=== PATIENT | female | born 1970 | race Caucasian/White ===

== ENCOUNTER 2020-08-01 17:24 | Inpatient (IN) | payer OTHER, SELFPAY ==
--- NOTE | ~2020-08-01 | CT_ITS ---
EXAMINATION: CT ABDOMEN AND PELVIS WITHOUT CONTRAST CLINICAL INFORMATION: Right flank pain COMPARISON: None TECHNIQUE: Multidetector volumetric imaging was performed from the superior aspect of the liver through the pubic symphysis. Sagittal and coronal reformatted images were obtained on the technologist's workstation. This CT examination was performed using dose optimization techniques as appropriate, variously including the following: *Automated exposure control *Adjustment of mA and/or kV according to patient size (this includes techniques or standardized protocols for targeted exams where dose is matched to indication/reason for exam; i.e. extremities or head) *Use of iterative reconstruction technique DLP: 1686 mGy-cm FINDINGS: LUNG BASES: The visualized lung bases are unremarkable. A tiny right anterior preparacardiac lymph node is present. LIVER, GALLBLADDER, AND BILIARY TREE: The liver is enlarged at 23 cm and demonstrates a markedly nodular border consistent with cirrhosis. No focal liver masses or bile duct dilatation is seen. The gallbladder is unremarkable with no evidence of radiopaque gallstones, gallbladder wall thickening, or obvious pericholecystic inflammatory changes. PANCREAS: Unremarkable. SPLEEN: Spleen is enlarged measuring 14 cm in greatest length. ADRENAL GLANDS: Unremarkable. KIDNEYS AND URETERS: The kidneys are normal in size, shape, and attenuation. Probable dromedary hump is noted in the left kidney. No hydronephrosis, hydroureter, or calculi seen. No perinephric stranding. There is one tiny calcification seen in the region of the right ureterovesical junction that may very well be a phlebolith as I cannot see the ureter extending to this (4:719). BLADDER: Unremarkable. GASTROINTESTINAL TRACT: The small and large bowel are unremarkable. The appendix is unremarkable. ABDOMINAL WALL: No significant hernia is appreciated. LYMPH NODES: No retroperitoneal lymphadenopathy VASCULAR: Unremarkable. No significant varices are seen. PELVIC VISCERA: An anteverted uterus is present. A small right ovarian cyst is seen. An abnormal adnexal mass or free intraperitoneal fluid is not present. OSSEOUS STRUCTURES: Degenerative changes noted in the lower thoracic spine as well as at L5-S1. CT/CT abdomen pelvis wo con IMPRESSION: 1. Enlarged cirrhotic nodular liver with associated splenomegaly. No ascites or varices are seen. 2. No renal calculi seen and no hydronephrosis present. Questionable punctate density near right ureterovesical junction but I cannot confidently place this within the ureter. 3. Other incidental findings as described above.
[2020-08-01 19:45] VITALS: PULSE 93; RESP 18; TEMP 36.4; O2SAT 94
--- NOTE | 2020-08-01 21:07 | PC.NURSE ---
Patient awake at 2100, Nurse asked patient if she would be willing to do the admission. Patient reported that she was tired and asked if she could do it in the am.
[2020-08-02 06:00] VITALS: BP 102/49; PULSE 91; RESP 18; TEMP 36.7; O2SAT 94
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
--- NOTE | 2020-08-02 15:55 | PC.NURSE ---
Patient refused EKG.
[2020-08-02 19:36] VITALS: BP 155/65; PULSE 105; RESP 18; TEMP 36.7; O2SAT 95
--- NOTE | 2020-08-02 22:49 | PC.NURSE ---
Patient refused scheduled zyprexa.
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
[2020-08-03 06:00] VITALS: BP 125/58; PULSE 101; RESP 18; TEMP 35.6; O2SAT 97
--- NOTE | 2020-08-03 16:10 | PC.NURSE ---
hospitalist consult-refused assessment reported to Guillaume Cesar ''I work for the [employer] I can't tell you anything about my mental or physical health''
--- NOTE | 2020-08-03 16:13 | P.EN_ITS ---
Event Note Date of Service: 08/03/20 Event Note: Routine consultation. Pt admitted directly from [facility] with h/o johann iziaffective disorder Attempted to evaluate patient. She declined to answer any questions and declined physical exam. There are no labs to review Diabetes listed in chart, pt would not confirm. If so would recommend diabetic diet, following POC sugars and SSI if pt will allow.
--- NOTE | 2020-08-03 17:40 | HO.PSYCHPN ---
Subjective Subjective Date of Service: 08/03/20 Reason For Visit: Schizophrenia Subjective Notes: Section 12B Healthcare Proxy: No Guardianship: No Medical Problems Affecting Mental Status: No Interim History: pt refusing meds; refusing to sign any papers. refusing to engage in further evaluation or interviw; refusing labs; pleasant upon superficial approach but easily becomes irritable and guarded if asked questions about her mental health. She reports she doesn't need any medication just MARCELO. She says she is a better healer than MARCELO. She is very religiously preoccupied- asking where the chapel is and stating she can offer high school counselor to others in the hospital. Medication Compliance: No Attending Groups: Intermittent Review of Systems Review of Systems Yes Unobtainable due to mental status (irritable, refusing to extend interview; denies medical complaints currentl) Mental Status Exam Mental Status Exam Patient Appearance: Disheveled Patient Orientation: Person and Place Level of Consciousness: Awake, Restless and Alert Patient Behavior: Guarded, Talkative, Asleep (vascillates between sleeping and hyperactive and talkative (given thorazine IM in ED at [facility])), Restless, Anxious, Distractible and Poor Eye Contact Behavior Comments: scanning room, appearing preoccupied with internal stimuli at times, irritable if aksed questions about mental health Mood Description: Suspicious, Anxious, Labile, Apprehensive and Expansive Affect Description: Suspicious, Cheerful, Anxious and Labile Patient Cognition Impaired: Yes Ability to Follow Directions: Fair Speech Pattern: Delayed, Pressured (intermittently ) and Long Pauses Memory Description: Episodic Impaired Delusions: Paranoid Ideation and Grandiose Thought Process: Evasive Judgement: Poor Diagnostics Vital Signs (24Hr): Vital Signs - 24 hr 08/02/20 19:36 08/03/20 06:00 Temperature 98.1 F 96.0 F L Pulse Rate 105 H 101 H Respiratory Rate 18 18 Blood Pressure 155/65 H 125/58 L Pulse Oximetry 95 97 Medications Medications Current Medications Generic Name Dose Route Start Last Admin Trade Name Freq PRN Reason Stop Dose Admin Acetaminophen 650 mg 08/01/20 15:11 Acetaminophen 325 Mg Tablet PO Q6H PRN Headache/Pain Mild Scale (1-3) Al Hydroxide/Mg Hydroxide 30 ml 08/01/20 15:11 Magnesium Hydrox/Alum Hydrox 30 Ml Oral.Susp PO Q6H PRN Heartburn/Nausea Hydroxyzine HCl 25 mg 08/01/20 15:11 Hydroxyzine Hcl 25 Mg Tablet PO BEDTIME PRN Anxiety Lorazepam 1 mg 08/02/20 09:10 Lorazepam 0.5 Mg Tablet PO Q6H PRN Anxiety Magnesium Hydroxide 30 ml 08/01/20 15:11 Milk Of Magnesia 30 Ml Oral.Susp PO DAILY PRN Constipation Olanzapine 10 mg 08/02/20 21:00 08/02/20 21:16 Olanzapine Odt 10 Mg Tab.Rapdis TRANSLINGU Not Given BEDTIME BRIAN Olanzapine 5 mg 08/02/20 09:09 Olanzapine Odt 10 Mg Tab.Rapdis TRANSLINGU BID PRN Psychosis, agitation Trazodone HCl 50 mg 08/01/20 15:11 Trazodone Hcl 50 Mg Tablet PO BEDTIME PRN Insomnia Allergies Allergies Allergy/AdvReac Type Severity Reaction Status Date / Time oxybutynin Allergy Unknown Hallucinati Unverified 07/30/19 00:00 ons tramadol Allergy Unknown Swelling/Hi Verified 11/07/18 00:00 ves tramadol Allergy Unknown edema, Uncoded 07/30/19 00:00 hives, sob Assessment & Plan Assessment & Plan (1) Schizoaffective disorder, bipolar type: Status: Acute Code(s): F25.0 - Schizoaffective disorder, bipolar type Assessment and Plan: Encourage ZYPREXA 10 MG AT HS ZYPREXA 5 MG bid PRN PSYCHOSIS ATIVAN 1 MG Q 6 HOURS PRN ANXIETY labs: CBC CMP TSH, lipids and A1C hospital consult EKG may need sect 7 and 8 discharge planning with team for f/u care and prevention of relapse Greater than 50% of the session was spent on counseling and/or coordination of care Reason for contiued inpatient stay Substantial Risk for: harm to self, harm to others, inability to function, rapid decompensation and med/psych decompensation
[2020-08-03 18:00] VITALS: BP 151/76; TEMP 37.1; O2SAT 100
[2020-08-04 06:00] VITALS: BP 142/75; PULSE 98; RESP 18; TEMP 36.6; O2SAT 95
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
[2020-08-04 18:00] VITALS: BP 156/69; PULSE 83; TEMP 35.7; O2SAT 98
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
[2020-08-06 06:00] VITALS: BP 143/82; PULSE 86; TEMP 35.8; O2SAT 100
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
[2020-08-06 17:35] VITALS: BP 167/69; PULSE 95; TEMP 36.7; O2SAT 96
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
[2020-08-07 17:23] VITALS: BP 115/55; PULSE 100; RESP 18; TEMP 36.6; O2SAT 96
--- NOTE | 2020-08-08 03:25 | PC.NURSE ---
Awake at 23:45. Presented as hyperverbal and responding to internal stimuli. Pt lecturing another patient about reconciling people. While pacing the hallway, pt appeared to be unaware of the environment when asked to lower her voice: you mean there are other people here? Pt fearful of not having enough food in the hospital: I need the number to [employer]. We need to make sure there's enough food here. Pt asked to speak with another patient in the kitchen area. I can't do that. I can't leave the time-line (the hallway). Pt responding to internal stimuli as evidenced by the pt self-dialoguing incoherently. Pt refused medication. Continued to pace the hallway and in bed by 00:45 for remainder of shift.
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
[2020-08-08 10:15] VITALS: BP 108/54; PULSE 90; TEMP 36.7; O2SAT 100
[2020-08-08 16:35] VITALS: BP 130/58; PULSE 87; TEMP 36.5
[2020-08-09 06:00] VITALS: BP 108/53; PULSE 85; RESP 18; TEMP 35.7; O2SAT 94
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
[2020-08-09 19:10] VITALS: BP 137/61; PULSE 87; TEMP 36.1
[2020-08-10 05:25] VITALS: BP 131/64; PULSE 84; RESP 18; TEMP 36.4; O2SAT 96
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
[2020-08-10] MEDS: LORazepam 2 MG/ML VIAL IM (08:45)
[2020-08-10] MEDS: diphenhydrAMINE HCL 50 MG/ML VIAL IM (08:45)
[2020-08-10] MEDS: OLANZapine 10 MG VIAL IM (08:45)
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
[2020-08-11 17:04] VITALS: BP 114/67; PULSE 96; RESP 18; TEMP 36.8; O2SAT 100
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
[2020-08-12 16:57] VITALS: BP 109/57; PULSE 75; RESP 18; TEMP 36.8; O2SAT 96
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
[2020-08-14 06:20] VITALS: BP 139/66; PULSE 81; RESP 18; TEMP 36.6; O2SAT 96
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
[2020-08-14 19:10] VITALS: BP 150/76; PULSE 86; TEMP 36.6
[2020-08-15 06:35] VITALS: BP 124/62; PULSE 91; RESP 18; TEMP 36; O2SAT 94
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
[2020-08-15] MEDS: Paliperidone Palmitate 234 MG/1.5 ML SYRINGE IM (15:06)
[2020-08-15 17:15] VITALS: BP 123/71; PULSE 87; RESP 18; TEMP 36.6; O2SAT 97
[2020-08-15] MEDS: OLANZapine ODT 10 MG TAB.RAPDIS TRANSLINGU (21:15)
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
[2020-08-16] MEDS: OLANZapine ODT 10 MG TAB.RAPDIS TRANSLINGU (21:45)
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
[2020-08-17] MEDS: OLANZapine ODT 10 MG TAB.RAPDIS TRANSLINGU (20:25)
[2020-08-18 06:00] VITALS: BP 97/55; PULSE 87; RESP 18; TEMP 36.8; O2SAT 95
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
[2020-08-18 16:46] VITALS: BP 129/64; PULSE 87; RESP 18; TEMP 36.5; O2SAT 97
[2020-08-18] MEDS: OLANZapine 10 MG VIAL IM (22:49)
[2020-08-19 11:00] VITALS: BP 146/65; PULSE 97; RESP 16; TEMP 36.1; O2SAT 97
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
[2020-08-19 18:45] VITALS: BP 133/63; PULSE 92; TEMP 36.6
[2020-08-19] MEDS: OLANZapine 10 MG VIAL IM (22:53)
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
[2020-08-20] MEDS: Paliperidone Palmitate 234 MG/1.5 ML SYRINGE IM (14:14)
[2020-08-20 18:00] VITALS: RESP 18
[2020-08-20] MEDS: OLANZapine ODT 10 MG TAB.RAPDIS TRANSLINGU (20:53)
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
[2020-08-21 18:00] VITALS: BP 141/68; PULSE 95; RESP 18; TEMP 36.3
[2020-08-21] MEDS: OLANZapine ODT 10 MG TAB.RAPDIS TRANSLINGU (21:27)
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
[2020-08-22] MEDS: OLANZapine ODT 10 MG TAB.RAPDIS TRANSLINGU (20:32)
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
[2020-08-23 18:00] VITALS: BP 119/56; PULSE 93; TEMP 36.4
[2020-08-23] MEDS: OLANZapine ODT 10 MG TAB.RAPDIS TRANSLINGU (21:01)
[2020-08-24 16:30] VITALS: BP 121/57; PULSE 80; TEMP 36.4
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
[2020-08-24] MEDS: OLANZapine ODT 10 MG TAB.RAPDIS TRANSLINGU (20:32)
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
[2020-08-25 18:00] VITALS: BP 140/77; PULSE 82; TEMP 37
[2020-08-25] MEDS: OLANZapine 7.5 MG TABLET PO (20:23)
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
[2020-08-26 17:34] VITALS: BP 122/66; PULSE 82; RESP 18; TEMP 36.8; O2SAT 96
[2020-08-26] MEDS: OLANZapine 7.5 MG TABLET PO (20:20)
[2020-08-27 15:14] VITALS: BP 124/57; PULSE 97; TEMP 36.7
[2020-08-27 16:35] VITALS: BP 148/72; PULSE 90; TEMP 36.7
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
[2020-08-27] MEDS: OLANZapine 7.5 MG TABLET PO (22:28)
[2020-08-28 06:25] VITALS: BP 108/53; PULSE 79; RESP 16; TEMP 36.4; O2SAT 96
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
[2020-08-28 18:00] VITALS: RESP 16
[2020-08-28] MEDS: OLANZapine 7.5 MG TABLET PO (20:39)
[2020-08-29 06:00] VITALS: RESP 20
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
[2020-08-29 17:57] VITALS: BP 144/75; PULSE 85; TEMP 36.6
[2020-08-29] MEDS: OLANZapine 7.5 MG TABLET PO (20:02)
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
[2020-08-30 18:00] VITALS: BP 138/84; PULSE 82; RESP 16; TEMP 36.2; O2SAT 96
[2020-08-30] MEDS: OLANZapine 7.5 MG TABLET PO (21:49)
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
[2020-08-31 18:00] VITALS: BP 138/78; PULSE 78; RESP 18; TEMP 36.6; O2SAT 97
[2020-08-31 21:00] VITALS: BP 140/72; PULSE 76
[2020-08-31] MEDS: OLANZapine 7.5 MG TABLET PO (21:22)
[2020-08-31] MEDS: diphenhydrAMINE HCL 25 MG TABLET 50 MG PO (23:45)
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
[2020-09-01] MEDS: Benztropine Mesylate 1 MG TABLET PO (17:03)
[2020-09-01 18:00] VITALS: BP 167/78; PULSE 84; TEMP 36.4
[2020-09-01] MEDS: OLANZapine 7.5 MG TABLET PO (21:53)
[2020-09-02 06:00] VITALS: BP 155/79; PULSE 89; RESP 17; TEMP 36.1; O2SAT 98
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
[2020-09-02 18:00] VITALS: BP 175/83; PULSE 82; TEMP 36.4
[2020-09-02] MEDS: Benztropine Mesylate 1 MG TABLET PO (20:43)
[2020-09-02] MEDS: OLANZapine 7.5 MG TABLET PO (20:43)
[2020-09-03 16:54] VITALS: BP 126/80; PULSE 80; RESP 18; TEMP 36.2; O2SAT 96
[2020-09-03] MEDS: OLANZapine 7.5 MG TABLET PO (21:49)
[2020-09-03] MEDS: Benztropine Mesylate 1 MG TABLET PO (21:49)
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
[2020-09-04 18:00] VITALS: BP 132/63; PULSE 82; RESP 18; TEMP 36.3; O2SAT 96
[2020-09-04] MEDS: OLANZapine 7.5 MG TABLET PO (20:36)
[2020-09-04] MEDS: Benztropine Mesylate 1 MG TABLET PO (20:38)
[2020-09-04] MEDS: Benztropine Mesylate 0.5 MG TABLET PO (23:35)
[2020-09-05 16:20] VITALS: BP 164/81; PULSE 81; TEMP 36.5
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
[2020-09-05] MEDS: OLANZapine 7.5 MG TABLET PO (20:59)
[2020-09-05] MEDS: Benztropine Mesylate 1 MG TABLET PO (20:59)
[2020-09-06 06:00] VITALS: BP 105/52; PULSE 74; RESP 14; TEMP 36.3; O2SAT 94
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
[2020-09-06] MEDS: Benztropine Mesylate 1 MG TABLET PO (20:28)
[2020-09-06] MEDS: OLANZapine 7.5 MG TABLET PO (20:28)
[2020-09-06] MEDS: Benztropine Mesylate 0.5 MG TABLET PO (22:12)
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
[2020-09-07 09:57] VITALS: BP 136/82; PULSE 87; RESP 14; TEMP 36.4; O2SAT 97
[2020-09-07] MEDS: Benztropine Mesylate 0.5 MG TABLET PO (19:41)
[2020-09-07] MEDS: Benztropine Mesylate 1 MG TABLET PO (19:41)
[2020-09-07] MEDS: OLANZapine 7.5 MG TABLET PO (19:41)
[2020-09-07] MEDS: Acetaminophen 325 MG TABLET 650 MG PO (21:23)
[2020-09-07] MEDS: traZODone HCL 50 MG TABLET PO ×2 (22:29→23:30)
[2020-09-07] MEDS: diphenhydrAMINE HCL 25 MG TABLET 50 MG PO (22:29)
[2020-09-08 06:25] VITALS: BP 120/65; PULSE 68; RESP 18; TEMP 36.2; O2SAT 93
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
[2020-09-08 18:00] VITALS: BP 142/82; PULSE 73
[2020-09-08] MEDS: OLANZapine 7.5 MG TABLET PO (20:24)
[2020-09-08] MEDS: Benztropine Mesylate 1 MG TABLET PO (20:24)
[2020-09-09] MEDS: Benztropine Mesylate 1 MG TABLET PO ×2 (08:03→20:27)
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
[2020-09-09 18:00] VITALS: BP 119/57; PULSE 88; RESP 18; TEMP 36.7; O2SAT 96
[2020-09-09] MEDS: OLANZapine 7.5 MG TABLET PO (20:27)
[2020-09-09] MEDS: Benztropine Mesylate 0.5 MG TABLET PO (22:45)
[2020-09-09] MEDS: traZODone HCL 50 MG TABLET PO ×2 (22:45→23:53)
[2020-09-09] MEDS: Acetaminophen 325 MG TABLET 650 MG PO (23:53)
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
[2020-09-10 18:00] VITALS: BP 95/53; PULSE 76; RESP 18; TEMP 36.4; O2SAT 95
[2020-09-10] MEDS: OLANZapine 7.5 MG TABLET PO (20:31)
[2020-09-10] MEDS: Benztropine Mesylate 1 MG TABLET PO (20:31)
[2020-09-10 20:48] VITALS: BP 133/91; PULSE 83; RESP 22; TEMP 36.1; O2SAT 97
[2020-09-11] MEDS: traZODone HCL 50 MG TABLET PO ×4 (00:19→23:18)
[2020-09-11] MEDS: Benztropine Mesylate 0.5 MG TABLET PO ×2 (01:05→22:11)
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
[2020-09-11] MEDS: Benztropine Mesylate 1 MG TABLET PO (20:46)
[2020-09-11] MEDS: OLANZapine 7.5 MG TABLET PO (20:46)
[2020-09-11] MEDS: amantadine HCL 100 MG CAPSULE PO (22:40)
[2020-09-11] MEDS: Acetaminophen 325 MG TABLET 650 MG PO (23:18)
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
[2020-09-12 16:52] VITALS: BP 111/78; PULSE 82; RESP 18; TEMP 36.4; O2SAT 97
[2020-09-12] MEDS: Benztropine Mesylate 1 MG TABLET PO (20:40)
[2020-09-12] MEDS: OLANZapine 7.5 MG TABLET PO (20:41)
[2020-09-13 12:57] VITALS: BP 133/67; PULSE 91; RESP 16; TEMP 36.2; O2SAT 97
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
[2020-09-13 18:00] VITALS: BP 146/82; PULSE 89; RESP 16; TEMP 37.3; O2SAT 98
[2020-09-13] MEDS: Benztropine Mesylate 1 MG TABLET PO (21:06)
[2020-09-13] MEDS: OLANZapine 7.5 MG TABLET PO (21:06)
[2020-09-13] MEDS: amantadine HCL 100 MG CAPSULE PO (21:09)
[2020-09-13] MEDS: Ibuprofen 600 MG TABLET PO (23:32)
[2020-09-14] MEDS: traZODone HCL 50 MG TABLET PO ×3 (00:35→22:04)
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
[2020-09-14 17:01] VITALS: BP 128/68; PULSE 79; TEMP 36.5; O2SAT 96
[2020-09-14] MEDS: OLANZapine 7.5 MG TABLET PO (20:09)
[2020-09-14] MEDS: amantadine HCL 100 MG CAPSULE PO (20:09)
[2020-09-14] MEDS: Benztropine Mesylate 1 MG TABLET PO (21:26)
[2020-09-14] MEDS: Benztropine Mesylate 0.5 MG TABLET PO (22:05)
[2020-09-14] MEDS: Ibuprofen 600 MG TABLET PO (22:48)
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
[2020-09-15 16:35] VITALS: BP 144/84; PULSE 85; RESP 18; TEMP 36.7; O2SAT 94
[2020-09-15] MEDS: Benztropine Mesylate 1 MG TABLET PO (20:53)
[2020-09-15] MEDS: OLANZapine 7.5 MG TABLET PO (20:55)
[2020-09-15] MEDS: Ibuprofen 600 MG TABLET PO (22:24)
[2020-09-15] MEDS: traZODone HCL 50 MG TABLET PO ×2 (22:53→23:53)
[2020-09-15] MEDS: Benztropine Mesylate 0.5 MG TABLET PO (22:53)
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
[2020-09-16 18:00] VITALS: RESP 16
[2020-09-16] MEDS: Ibuprofen 600 MG TABLET PO (19:49)
[2020-09-16] MEDS: OLANZapine 7.5 MG TABLET PO (19:50)
[2020-09-16] MEDS: traZODone HCL 50 MG TABLET PO (19:50)
[2020-09-16] MEDS: Benztropine Mesylate 1 MG TABLET PO (19:50)
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
[2020-09-17 16:11] VITALS: BP 146/68; PULSE 89; RESP 20; TEMP 36.8
[2020-09-17] MEDS: OLANZapine 7.5 MG TABLET PO (20:11)
[2020-09-17] MEDS: amantadine HCL 100 MG CAPSULE PO (20:11)
[2020-09-17] MEDS: Benztropine Mesylate 1 MG TABLET PO (20:11)
[2020-09-17] MEDS: traZODone HCL 50 MG TABLET PO ×2 (20:11→21:45)
[2020-09-17] MEDS: Benztropine Mesylate 0.5 MG TABLET PO (21:45)
[2020-09-17] MEDS: Ibuprofen 600 MG TABLET PO (22:20)
--- NOTE | 2020-09-18 14:54 | PC.NURSE ---
Pt idnified several items she stated were missing that included rosary beads. she then stated she gave these away.
[2020-09-18 16:24] VITALS: BP 120/62; PULSE 86; RESP 18; TEMP 36.1; O2SAT 97
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
[2020-09-18] MEDS: Benztropine Mesylate 1 MG TABLET PO (20:27)
[2020-09-18] MEDS: OLANZapine 7.5 MG TABLET PO (20:27)
[2020-09-18] MEDS: traZODone HCL 50 MG TABLET PO (21:11)
[2020-09-19 06:00] VITALS: BP 143/79; PULSE 97; RESP 20; TEMP 36.2; O2SAT 98
[2020-09-19] MEDS: Benztropine Mesylate 0.5 MG TABLET PO ×2 (06:34→20:42)
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
[2020-09-19 15:55] VITALS: BP 137/86; PULSE 78; TEMP 36.8
[2020-09-19] MEDS: Benztropine Mesylate 1 MG TABLET PO (20:37)
[2020-09-19] MEDS: OLANZapine 7.5 MG TABLET PO (20:37)
[2020-09-19] MEDS: traZODone HCL 50 MG TABLET PO ×2 (21:29→22:44)
[2020-09-19] MEDS: Ibuprofen 600 MG TABLET PO (22:11)
[2020-09-19] MEDS: amantadine HCL 100 MG CAPSULE PO (22:43)
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
[2020-09-20] MEDS: Paliperidone Palmitate 234 MG/1.5 ML SYRINGE IM (12:07)
[2020-09-20 18:08] VITALS: BP 159/80; PULSE 106; TEMP 36.4
[2020-09-20] MEDS: Ibuprofen 600 MG TABLET PO (18:09)
[2020-09-20] MEDS: Benztropine Mesylate 0.5 MG TABLET PO (20:14)
[2020-09-20] MEDS: OLANZapine 7.5 MG TABLET PO (20:14)
[2020-09-20] MEDS: Benztropine Mesylate 1 MG TABLET PO (20:14)
[2020-09-20] MEDS: traZODone HCL 50 MG TABLET PO (20:30)
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
[2020-09-21] MEDS: Benztropine Mesylate 1 MG TABLET PO (20:35)
[2020-09-21] MEDS: OLANZapine 7.5 MG TABLET PO (20:35)
[2020-09-21] MEDS: traZODone HCL 50 MG TABLET PO ×2 (20:37→21:46)
[2020-09-21] MEDS: Ibuprofen 600 MG TABLET PO (20:37)
[2020-09-21] MEDS: Benztropine Mesylate 0.5 MG TABLET PO (20:37)
[2020-09-21] MEDS: amantadine HCL 100 MG CAPSULE PO (22:02)
--- NOTE | 2020-09-22 13:32 | MHC.CLN ---
Addendum entered by Leeann Hitchcock, STEFFEN 09/22/20 13:35: DIET ALREADY SHOWS VEGETARIAN. Original Note: NUTRITION CONSULT SPOKE WITH PATIENT ABOUT kOSHER FOODS. STATED TAHT SHE FOLLOWS [facility] AND DOES NOT EAQT MEAT OR FISH. SHE WILL EAT CHEESE AND PREFERES HAD OILED EGGS. WOULD LIKE PAPER MENU. KITCHEN AWARE OF PREFERENCE. WILL CHANGE DIET TO VEGETARIAN.
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
[2020-09-22 18:43] VITALS: BP 166/80; PULSE 75; TEMP 36.8
[2020-09-22] MEDS: OLANZapine 7.5 MG TABLET PO (19:32)
[2020-09-22] MEDS: Ibuprofen 600 MG TABLET PO (19:32)
[2020-09-22] MEDS: traZODone HCL 50 MG TABLET PO (19:33)
[2020-09-22] MEDS: amantadine HCL 100 MG CAPSULE PO (19:33)
[2020-09-22] MEDS: Benztropine Mesylate 1 MG TABLET PO (19:33)
[2020-09-22 20:46] VITALS: BP 116/56; PULSE 83
--- NOTE | 2020-09-23 | ECG_ITS ---
Test Reason : CP Blood Pressure : / mmHG Vent. Rate : 073 BPM Atrial Rate : 073 BPM P-R Int : 136 ms QRS Dur : 090 ms QT Int : 374 ms P-R-T Axes : 058 060 029 degrees QTc Int : 412 ms Normal sinus rhythm Normal ECG No previous ECGs available Referred By: Azul Nolan Electronically Signed By:Julien Flores
[2020-09-23] MEDS: Benztropine Mesylate 0.5 MG TABLET PO ×2 (05:32→21:17)
[2020-09-23 06:00] VITALS: BP 136/88; RESP 18; TEMP 36.3; O2SAT 96
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
[2020-09-23 15:23] LABS: MANUAL DIFF FLAG NO
[2020-09-23 15:27] LABS: Basophils Percent Auto 0.4 % (0-2); Eosinophils Absolute Auto 0.2 X10*3/uL (0.0-0.4); Eosinophils Percent Auto 3.1 % (0-4); Hematocrit 42.3 % (37-47); Hemoglobin 13.8 g/dl (12.0-16.0); Imm Gran Abs Auto 0.01 X10*3/uL (0.00-0.03); Imm Gran Pct Auto 0.2 % (0.0-0.4); Lymphocytes Absolute Auto 1.4 X10*3/uL (1.2-4.9); Lymphocytes Percent Auto 26.9 % (20-40); Mean Corpuscular HGB Conc 32.6 g/dl (31.0-35.0); Mean Corpuscular Hemoglobin 31.4 pg (27.0-33.0); Mean Corpuscular Volume 96.4 fL (80-98); Mean Platelet Volume 10.1 fL (9.4-12.3); Monocytes Absolute Auto 0.6 X10*3/uL (0.1-1.2); Monocytes Percent Auto 10.9 % (2-11); Neutrophils Absolute Auto 3.1 X10*3/uL (2.0-8.3); Neutrophils Percent Auto 58.5 % (45-73); Platelet Count 150 X10*3/uL (160-400); Red Blood Count 4.39 X10*6/uL (4.20-5.50); Red Cell Distribution Width 12.1 % (11.0-16.0); White Blood Count 5.2 X10*3/uL (4.8-10.8)
[2020-09-23 15:40] LABS: Estimated Average Glucose 108 mg/dL; Hemoglobin A1c % 5.4 %
[2020-09-23 15:57] LABS: Cholesterol 183 mg/dL; HDL Cholesterol 53 mg/dL; LDL Cholesterol Calculated 104 mg/dl; Triglycerides 134 mg/dL
[2020-09-23 15:58] LABS: Alanine Aminotransferase 19 U/L (0-31); Albumin Level 3.6 g/dL (3.5-5.0); Alkaline Phosphatase 78 U/L (39-117); Anion Gap 13 (12-20); Aspartate Amino Transferase 22 U/L (5-31); Bilirubin Total 1.1 mg/dL (0.0-1.0); Blood Urea Nitrogen 13 mg/dL (9-16); Calcium 9.2 mg/dL (8.4-10.2); Carbon Dioxide 26 mmol/L (22-29); Chloride 106 mmol/L (96-108); Estimated Glomerular Filt Rate > 60; Glucose Random 86 mg/dL (60-115); Potassium 4.6 mmol/L (3.3-5.1); Sodium 140 mmol/L (135-145); Total Protein 7.4 g/dL (6.5-8.0)
[2020-09-23 18:00] VITALS: BP 123/73; PULSE 74; RESP 18; TEMP 36.3; O2SAT 95
[2020-09-23] MEDS: Benztropine Mesylate 1 MG TABLET PO (20:08)
[2020-09-23] MEDS: OLANZapine 7.5 MG TABLET PO (20:08)
[2020-09-23] MEDS: traZODone HCL 50 MG TABLET PO ×2 (20:21→21:18)
[2020-09-23] MEDS: amantadine HCL 100 MG CAPSULE PO (20:26)
[2020-09-23] MEDS: Ibuprofen 600 MG TABLET PO (21:18)
[2020-09-23] MEDS: diphenhydrAMINE HCL 25 MG TABLET 50 MG PO (22:53)
[2020-09-24] MEDS: traZODone HCL 50 MG TABLET PO ×3 (00:58→21:27)
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
[2020-09-24 13:41] VITALS: BP 144/77; PULSE 89; TEMP 36.4
[2020-09-24] MEDS: OLANZapine 7.5 MG TABLET PO (20:30)
[2020-09-24] MEDS: Benztropine Mesylate 1 MG TABLET PO (20:30)
[2020-09-24 21:04] VITALS: BP 153/78; PULSE 86; RESP 16; TEMP 36.4; O2SAT 95
[2020-09-24] MEDS: Benztropine Mesylate 0.5 MG TABLET PO (21:27)
[2020-09-24] MEDS: Ibuprofen 600 MG TABLET PO (22:00)
[2020-09-25 17:00] VITALS: BP 126/61; PULSE 75; TEMP 37.1
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
[2020-09-25] MEDS: Benztropine Mesylate 1 MG TABLET PO (20:24)
[2020-09-25] MEDS: traZODone HCL 50 MG TABLET PO ×2 (20:24→22:26)
[2020-09-25] MEDS: OLANZapine 7.5 MG TABLET PO (20:25)
[2020-09-25] MEDS: Ibuprofen 600 MG TABLET PO (22:25)
[2020-09-25] MEDS: Benztropine Mesylate 0.5 MG TABLET PO (22:26)
[2020-09-25] MEDS: diphenhydrAMINE HCL 25 MG TABLET 50 MG PO (23:34)
[2020-09-26 06:00] VITALS: BP 93/50; PULSE 75; RESP 18; TEMP 35.3; O2SAT 96
[2020-09-26 16:55] VITALS: BP 150/82; PULSE 74; RESP 18; TEMP 36.8; O2SAT 98
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
[2020-09-26] MEDS: Hydrocortisone 1 % Cream 28.35 GM TUBE 1 APPL TOPICAL (21:02)
[2020-09-26 22:42] LABS: CK-BB None Detected (None Detected); CK-MB 0 % (<5); CK-MM 90 % (95-100); Creatine Kinase Isoenzyme Itrp MACRO CK TYPE 1; Creatine Kinase,Total,Serum 89 U/L (29-143)
[2020-09-27] MEDS: OLANZapine 7.5 MG TABLET PO (09:41)
[2020-09-27] MEDS: Benztropine Mesylate 0.5 MG TABLET PO (09:41)
[2020-09-27] MEDS: Hydrocortisone 1 % Cream 28.35 GM TUBE 1 APPL TOPICAL (09:42)
[2020-09-27 17:17] VITALS: BP 145/87; PULSE 88; RESP 18; TEMP 36.2; O2SAT 98
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
[2020-09-28] MEDS: OLANZapine 7.5 MG TABLET PO (09:17)
[2020-09-28] MEDS: Hydrocortisone 1 % Cream 28.35 GM TUBE 1 APPL TOPICAL (09:17)
[2020-09-28] MEDS: Benztropine Mesylate 0.5 MG TABLET PO (09:17)
[2020-09-28 12:14] VITALS: BP 160/90; PULSE 81; RESP 18; TEMP 36.2; O2SAT 96
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
[2020-09-28 18:00] VITALS: BP 140/81; PULSE 83; TEMP 36.9; O2SAT 96
[2020-09-28] MEDS: traZODone HCL 50 MG TABLET PO (22:00)
[2020-09-28] MEDS: Benztropine Mesylate 1 MG TABLET PO (22:00)
[2020-09-29] MEDS: Hydrocortisone 1 % Cream 28.35 GM TUBE 1 APPL TOPICAL (09:51)
[2020-09-29] MEDS: OLANZapine 7.5 MG TABLET PO (09:52)
[2020-09-29] MEDS: Benztropine Mesylate 0.5 MG TABLET PO ×2 (12:04→15:43)
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
[2020-09-29 18:00] VITALS: BP 155/98; PULSE 98; TEMP 36.4
[2020-09-29] MEDS: traZODone HCL 50 MG TABLET PO ×2 (19:35→21:26)
[2020-09-29] MEDS: Ibuprofen 600 MG TABLET PO (19:35)
[2020-09-29] MEDS: Benztropine Mesylate 1 MG TABLET PO (21:26)
[2020-09-29] MEDS: diphenhydrAMINE HCL 25 MG TABLET 50 MG PO (23:26)
[2020-09-30] MEDS: Benztropine Mesylate 0.5 MG TABLET PO ×2 (00:57→09:54)
[2020-09-30] MEDS: OLANZapine 7.5 MG TABLET PO (09:54)
[2020-09-30] MEDS: Hydrocortisone 1 % Cream 28.35 GM TUBE 1 APPL TOPICAL (09:54)
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
[2020-09-30 20:45] VITALS: BP 124/68; PULSE 84; TEMP 36.8
[2020-10-01 04:40] VITALS: BP 137/73; PULSE 97; TEMP 35.7
[2020-10-01] MEDS: OLANZapine 7.5 MG TABLET PO (09:24)
[2020-10-01] MEDS: Benztropine Mesylate 0.5 MG TABLET PO ×2 (09:24→23:00)
[2020-10-01] MEDS: Ibuprofen 600 MG TABLET PO (16:41)
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
[2020-10-01] MEDS: Benztropine Mesylate 1 MG TABLET PO (21:34)
[2020-10-01] MEDS: traZODone HCL 50 MG TABLET PO ×2 (21:34→23:00)
[2020-10-01] MEDS: diphenhydrAMINE HCL 25 MG TABLET 50 MG PO (22:52)
[2020-10-02 06:00] VITALS: BP 103/61; PULSE 72; TEMP 36.1; O2SAT 95
[2020-10-02] MEDS: OLANZapine 7.5 MG TABLET PO (09:57)
[2020-10-02] MEDS: Benztropine Mesylate 0.5 MG TABLET PO ×2 (09:57→14:46)
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
[2020-10-02 16:30] VITALS: BP 151/94; PULSE 102; RESP 18; TEMP 36.5; O2SAT 93
[2020-10-03] MEDS: OLANZapine 5 MG TABLET PO (08:33)
[2020-10-03 16:05] VITALS: BP 126/65; PULSE 83; TEMP 36.2
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
[2020-10-03] MEDS: Ibuprofen 600 MG TABLET PO (22:34)
[2020-10-04 06:00] VITALS: BP 140/88; PULSE 80; TEMP 36.4; O2SAT 99
[2020-10-04] MEDS: OLANZapine 5 MG TABLET PO (08:38)
[2020-10-04] MEDS: Benztropine Mesylate 1 MG TABLET PO (13:04)
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
[2020-10-04 16:38] VITALS: BP 127/66; PULSE 76; TEMP 36.5
[2020-10-05] MEDS: OLANZapine 5 MG TABLET PO (11:34)
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
[2020-10-05 18:00] VITALS: BP 137/76; PULSE 85; TEMP 36.6
[2020-10-06 06:00] VITALS: BP 132/60; PULSE 80; RESP 18; TEMP 36; O2SAT 97
[2020-10-06] MEDS: OLANZapine 5 MG TABLET PO (09:39)
[2020-10-06 16:16] VITALS: BP 137/86; PULSE 86; TEMP 36.6
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
[2020-10-06] MEDS: Benztropine Mesylate 0.5 MG TABLET PO ×2 (19:32→23:10)
[2020-10-06] MEDS: traZODone HCL 50 MG TABLET PO (22:46)
[2020-10-06] MEDS: Ibuprofen 600 MG TABLET PO (22:46)
[2020-10-07] MEDS: OLANZapine 5 MG TABLET PO (09:12)
[2020-10-07] MEDS: Benztropine Mesylate 1 MG TABLET PO (09:12)
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
[2020-10-07 17:26] VITALS: BP 142/86; PULSE 85; TEMP 36.6
[2020-10-07] MEDS: Ibuprofen 600 MG TABLET PO (21:09)
[2020-10-07] MEDS: Benztropine Mesylate 0.5 MG TABLET PO ×2 (21:09→22:30)
[2020-10-07] MEDS: traZODone HCL 50 MG TABLET PO ×2 (21:09→22:12)
[2020-10-08] MEDS: Benztropine Mesylate 1 MG TABLET PO (09:55)
[2020-10-08] MEDS: Hydrocortisone 1 % Cream 28.35 GM TUBE 1 APPL TOPICAL (09:55)
[2020-10-08] MEDS: OLANZapine 5 MG TABLET PO (09:55)
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
[2020-10-08] MEDS: Cyclobenzaprine HCl 5 MG TABLET PO (20:40)
[2020-10-08] MEDS: traZODone HCL 50 MG TABLET PO (22:38)
[2020-10-09] MEDS: OLANZapine 5 MG TABLET PO (09:14)
[2020-10-09] MEDS: Cyclobenzaprine HCl 5 MG TABLET PO ×3 (11:34→22:08)
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
[2020-10-09 18:00] VITALS: BP 140/76; PULSE 84; TEMP 36.4
[2020-10-10] MEDS: Cyclobenzaprine HCl 5 MG TABLET PO ×3 (03:35→23:21)
[2020-10-10 06:00] VITALS: BP 138/87; PULSE 73; RESP 16; TEMP 36.3; O2SAT 96
[2020-10-10] MEDS: OLANZapine 5 MG TABLET PO (09:05)
[2020-10-10] MEDS: Hydrocortisone 1 % Cream 28.35 GM TUBE 1 APPL TOPICAL (09:06)
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
[2020-10-10 18:00] VITALS: BP 142/82; PULSE 86; TEMP 36.7
[2020-10-11] MEDS: Cyclobenzaprine HCl 5 MG TABLET PO (02:15)
[2020-10-11 06:00] VITALS: BP 130/73; PULSE 93; RESP 18; TEMP 36.1; O2SAT 93
[2020-10-11] MEDS: OLANZapine 5 MG TABLET PO (10:10)
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
[2020-10-11 18:00] VITALS: BP 96/55; PULSE 87; TEMP 36.5
[2020-10-12 06:00] VITALS: BP 121/84; PULSE 97; RESP 16; TEMP 36.4; O2SAT 96
[2020-10-12] MEDS: OLANZapine 5 MG TABLET PO (11:10)
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
[2020-10-12 18:00] VITALS: BP 142/73; PULSE 86; TEMP 36.4
[2020-10-12] MEDS: Cyclobenzaprine HCl 5 MG TABLET PO (21:15)
[2020-10-12] MEDS: Ibuprofen 600 MG TABLET PO (22:31)
[2020-10-12] MEDS: traZODone HCL 50 MG TABLET PO (22:31)
[2020-10-13] MEDS: Cyclobenzaprine HCl 5 MG TABLET PO (04:56)
[2020-10-13 05:51] VITALS: BP 152/83; PULSE 71; RESP 18; TEMP 35.8; O2SAT 97
[2020-10-13] MEDS: OLANZapine 5 MG TABLET PO (09:06)
[2020-10-13 19:05] VITALS: BP 122/63; PULSE 86; TEMP 36.6
[2020-10-13] MEDS: Cyclobenzaprine HCl 5 MG TABLET 7.5 MG PO (19:13)
[2020-10-13] MEDS: Ibuprofen 600 MG TABLET PO (19:14)
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
[2020-10-14] MEDS: OLANZapine 5 MG TABLET PO (08:56)
[2020-10-14 10:26] VITALS: BP 136/86; PULSE 92; RESP 16; TEMP 36.6; O2SAT 91
[2020-10-14 16:10] VITALS: BP 149/92; PULSE 91; TEMP 36.8
[2020-10-14] MEDS: Ibuprofen 600 MG TABLET PO (20:51)
[2020-10-14] MEDS: Cyclobenzaprine HCl 5 MG TABLET 7.5 MG PO (20:52)
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
[2020-10-15 05:47] VITALS: BP 143/92; PULSE 88; RESP 18; TEMP 36.1; O2SAT 99
[2020-10-15 06:00] VITALS: BP 143/92; PULSE 88; RESP 16; TEMP 36.1; O2SAT 99
[2020-10-15] MEDS: OLANZapine 5 MG TABLET PO (08:49)
[2020-10-15 18:00] VITALS: BP 133/73; PULSE 79; TEMP 37.2
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
[2020-10-15 18:59] LABS: Alanine Aminotransferase 19 U/L (0-31); Albumin Level 3.6 g/dL (3.5-5.0); Alkaline Phosphatase 74 U/L (39-117); Anion Gap 11 (12-20); Aspartate Amino Transferase 21 U/L (5-31); Bilirubin Total 1.1 mg/dL (0.0-1.0); Blood Urea Nitrogen 13 mg/dL (9-16); Calcium 8.9 mg/dL (8.4-10.2); Carbon Dioxide 28 mmol/L (22-29); Chloride 106 mmol/L (96-108); Estimated Glomerular Filt Rate > 60; Glucose Random 135 mg/dL (60-115); Potassium 4.6 mmol/L (3.3-5.1); Sodium 140 mmol/L (135-145); Total Protein 7.2 g/dL (6.5-8.0)
--- NOTE | 2020-10-15 20:48 | PC.NURSE ---
Pt c/o kidney pain . Pt denies Frequency, burning. Pt vss. Dr. Gill was notified after a hospital consult was ordered. and Dr Gill said he he would not be able to see her tonight. He stated if anything emergent that we should call the night doctor. Pt has been sleeping. when this RN went in to check on pt at 1930, she said she was very tired but, denied pain.
[2020-10-15 23:11] LABS: MANUAL DIFF FLAG NO
[2020-10-15 23:17] LABS: Basophils Percent Auto 0.3 % (0-2); Eosinophils Absolute Auto 0.2 X10*3/uL (0.0-0.4); Eosinophils Percent Auto 3.2 % (0-4); Hematocrit 40.9 % (37-47); Imm Gran Abs Auto 0.01 X10*3/uL (0.00-0.03); Imm Gran Pct Auto 0.2 % (0.0-0.4); Lymphocytes Absolute Auto 2.1 X10*3/uL (1.2-4.9); Lymphocytes Percent Auto 34.7 % (20-40); Mean Corpuscular HGB Conc 34.2 g/dl (31.0-35.0); Mean Corpuscular Hemoglobin 32.1 pg (27.0-33.0); Mean Corpuscular Volume 93.8 fL (80-98); Mean Platelet Volume 9.6 fL (9.4-12.3); Monocytes Absolute Auto 0.6 X10*3/uL (0.1-1.2); Monocytes Percent Auto 10.3 % (2-11); Neutrophils Absolute Auto 3.1 X10*3/uL (2.0-8.3); Neutrophils Percent Auto 51.3 % (45-73); Platelet Count 147 X10*3/uL (160-400); Red Blood Count 4.36 X10*6/uL (4.20-5.50); Red Cell Distribution Width 12.6 % (11.0-16.0)
--- NOTE | 2020-10-16 | ECG_ITS ---
Test Reason : left upper chest pain Blood Pressure : / mmHG Vent. Rate : 085 BPM Atrial Rate : 085 BPM P-R Int : 138 ms QRS Dur : 088 ms QT Int : 370 ms P-R-T Axes : 059 061 047 degrees QTc Int : 440 ms Normal sinus rhythm Normal ECG No previous ECGs available Referred By: Ceasar Diaz Electronically Signed By:Julien Flores
[2020-10-16 06:00] VITALS: BP 119/68; PULSE 84; RESP 18; TEMP 35.4; O2SAT 96
[2020-10-16] MEDS: OLANZapine 5 MG TABLET PO (09:55)
--- NOTE | 2020-10-16 11:40 | HO.HSGERICON ---
History of Present Illness Data of Consult Service Date: 10/16/20 Primary Care Provider: Unknown Physician HPI 50-year-old female with past medical history of paranoid delusions, who is currently being managed at the behavioral health unit for schizoaffective disorder bipolar type. We are consulted for persistent flank pain. On my interview of the patient she reports right-sided flank pain that last night was 8/10, localized to the right kidney, radiating to the groin, she denies any exacerbating factors but reports peeing makes the pain better. She denies any dysuria, frequency, or urgency. She reports that the pain improved this morning and is 3/10. No chills denies any fever or chills, no chest pain, no abdominal pain nausea or vomiting, no diarrhea constipation, no lower extremity edema. Patient had an abdominal pelvic CT done yesterday 10/15 which showed enlarged cirrhotic nodular liver with associated splenomegaly with no ascites or varices, no renal calculi seen and no hydronephrosis present. Questionable punctate density near right ureterovesical junction. She also has a small right ovarian cyst. On 8 for reviewed show normal kidney function with a BUN of 13 and a creatinine of 0.78, otherwise unremarkable. Review of Systems Review of Systems: Yes all other systems are reviewed and are negative [facility] Medical History Delusions Paranoid Social History Household Members: Family Household Members Other:: 3 Housing: Unknown / Unable to assess Do you presently have visiting nurse or other home services: No Unable to assess alcohol history related to: Refusing to respond Smoked in Last 30 Days: No Patient Interested in Nicotine Replacement: No Patient Given Instructions on How to Stop Smoking: No Second Hand Smoke Exposure: No Use of substances other than those prescribed or required for medical reasons: Refusing to respond Substance Use Type: Unknown Currently Displaying Signs/Symptoms of Drug Intoxication Withdrawal: No Are you made to feel afraid or neglected: No Spiritual Healthcare Practices: I am a Catholic, I belong to [place] and God takes care of me . Advance Directives: No Advance Directives Information Provided: No Advance Directives on File: No Do you have thoughts of harming others: None Do you have a plan to hurt others: No Plan Recently lost weight without trying: No Nutrition Risks: No Nutritional Risk Patient : No : No service: Yes (N/A) Sexual orientation: Decline to Answer Meds Allergies Allergy/AdvReac Type Severity Reaction Status Date / Time oxybutynin Allergy Unknown Hallucinati Unverified 07/30/19 00:00 ons tramadol Allergy Unknown Swelling/Hi Verified 11/07/18 00:00 ves tramadol Allergy Unknown edema, Uncoded 07/30/19 00:00 hives, sob Active Medications: Current Medications Generic Name Dose Route Start Last Admin Trade Name Freq PRN Reason Stop Dose Admin Al Hydroxide/Mg Hydroxide 30 ml 08/01/20 15:11 Magnesium Hydrox/Alum Hydrox 30 Ml Oral.Susp PO Q6H PRN Heartburn/Nausea Cyclobenzaprine HCl 7.5 mg 10/13/20 12:24 10/14/20 20:52 Cyclobenzaprine Hcl 5 Mg Tablet PO 7.5 mg TID PRN Administration muscle pain Diphenhydramine HCl 50 mg 08/04/20 10:50 10/01/20 22:52 Diphenhydramine Hcl 25 Mg Tablet PO 50 mg BEDTIME PRN Administration Insomnia Hydrocortisone 1 appl 09/26/20 15:00 10/16/20 10:00 Hydrocortisone 1 % Cream 28.35 Gm Tube TOPICAL Not Given BID [facility] Protocol Ibuprofen 600 mg 09/12/20 13:24 10/14/20 20:51 Ibuprofen 600 Mg Tablet PO 600 mg Q8H PRN Administration Pain, Mild (Pain Scale 1-3) Lidocaine 1 patch 10/16/20 09:00 10/16/20 10:00 Lidocaine 4 % Patch Adh..Patch TRANSDERMA Not Given DAILY [facility] Protocol Magnesium Hydroxide 30 ml 08/01/20 15:11 Milk Of Magnesia 30 Ml Oral.Susp PO DAILY PRN Constipation Olanzapine 5 mg 08/02/20 09:09 Olanzapine Odt 10 Mg Tab.Rapdis TRANSLINGU BID PRN Psychosis, agitation Olanzapine 10 mg 08/18/20 21:32 08/19/20 22:53 Olanzapine 10 Mg Vial IM 10 mg DAILY PRN Administration if refuses PO Olanzapine 5 mg 10/03/20 09:00 10/16/20 09:55 Olanzapine 5 Mg Tablet PO 5 mg DAILY BRIAN Administration Trazodone HCl 50 mg 08/01/20 15:11 10/12/20 22:31 Trazodone Hcl 50 Mg Tablet PO 50 mg BEDTIME PRN Administration Insomnia Home Medications Medication Instructions Recorded Confirmed Last Taken Type olanzapine 10 mg tablet 1 tab PO BEDTIME 08/01/20 08/01/20 Unknown History Results Labs CBC and Chem 7: 10/15/20 23:07 10/15/20 18:25 Labs: Laboratory Results - last 24 hr 10/15/20 10/15/20 18:25 23:07 MCV 93.8 MCH 32.1 MCHC 34.2 RDW 12.6 Plt Count 147 L MPV 9.6 Immature Gran % (Auto) 0.2 Neut % (Auto) 51.3 Lymph % (Auto) 34.7 [place] % (Auto) 10.3 Eos % (Auto) 3.2 Baso % (Auto) 0.3 Lymph # (Auto) 2.1 [place] # (Auto) 0.6 Eos # (Auto) 0.2 Baso # (Auto) 0.0 Abs Immat Gran (auto) 0.01 Absolute Neuts (auto) 3.1 Absolute Nucleated RBC 0.000 Nucleated RBC % (auto) 0.0 Anion Gap 11 L Estim Creat Clear Calc TNP Estimated GFR > 60 Random Glucose 135 H D Calcium 8.9 Total Bilirubin 1.1 H AST 21 ALT 19 Alkaline Phosphatase 74 Total Protein 7.2 Albumin 3.6 Imaging Radiologist's Impressions: Impressions Abdomen/Pelvis CT 10/15/20 00:05 IMPRESSION: 1. Enlarged cirrhotic nodular liver with associated splenomegaly. No ascites or varices are seen. 2. No renal calculi seen and no hydronephrosis present. Questionable punctate density near right ureterovesical junction but I cannot confidently place this within the ureter. 3. Other incidental findings as described above. Assessment and Plan (1) Right flank pain: Status: Acute 50-year-old female with a past medical history of paranoia as well as schizoaffective disorder who is currently being managed at the behavioral health unit for schizoaffective disorder we are consulted for persistent flank pain. # flank pain - CT abdomen shows no acute abnormality including no renal calculi and no hydronephrosis. - CT abdomen is significant for a punctate density - labs reviewed shows no abnormality - creatinine and BUN normal - will obtain UA although no evidence of perinephric stranding and patient denies any urinary symptoms - will also obtain renal ultrasound to evaluate the punctate density - pain medication with time a Thank you for the consult will follow results of renal US and UA
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
[2020-10-16 18:00] VITALS: BP 103/57; PULSE 81; TEMP 36.4
[2020-10-16] MEDS: Cyclobenzaprine HCl 5 MG TABLET 7.5 MG PO (18:06)
[2020-10-16 20:06] LABS: Glucose Urine UA NEG (NEG); Leukocyte Esterase Urine TRACE (NEG); Nitrite Urine NEG (NEG); Urine Blood NEG (NEG); Urine Ketones NEG (NEG); Urine Protein NEG (NEG-TRACE)
[2020-10-16 20:07] LABS: Appearance Urine CLEAR; Color Urine YELLOW
[2020-10-16 20:19] LABS: Bacteria Urine 2+ /LPF; RBC Urine 0 /HPF (0); Squamous Epithelial Cell Urine 1+ /LPF
[2020-10-16 20:20] LABS: Uric Acid Crystals Urine TRACE /LPF
[2020-10-16] MEDS: Ibuprofen 600 MG TABLET PO (20:38)
--- NOTE | 2020-10-16 21:30 | PM.EVENT ---
Event Note Date of Service: 10/16/20 Event Note: Right Flank pain: now improved; CT shows Questionable punctate density near right ureterovesical junction but I cannot confidently place this within the ureter. Urology consulted. UTI: s/w Macrobid ;f/u Cultures. AM team to follow up
[2020-10-16] MEDS: Nitrofurantoin Monohyd/M-Cryst 100 MG CAPSULE PO (21:57)
[2020-10-17] MEDS: OLANZapine 5 MG TABLET PO (09:26)
[2020-10-17] MEDS: Nitrofurantoin Monohyd/M-Cryst 100 MG CAPSULE PO ×2 (09:26→20:34)
[2020-10-17 09:59] LABS: Iron 163 mcg/dL (30-160); Percent Iron Saturation 62 % (15-50); Total Iron Binding Capacity 264 mcg/dL (228-428); Unsaturated Iron Binding 101 ug/dL
[2020-10-17 10:20] LABS: HBS Num1 0.34 mIU/mL (0-7.99); ~Hepatitis B Surface Antibody NONREACTIVE (Nonreactive)
[2020-10-17 10:27] VITALS: BP 123/79; PULSE 103; RESP 16; TEMP 36.6; O2SAT 98
[2020-10-17 10:48] LABS: HBc Num1 0.08 S/CO (0.00-0.79); HBsAGNum1 0.19 S/CO (0.00-0.99); Hepatitis B Core Antibody Nonreactive (Nonreactive); Hepatitis B Surface Antigen Negative (Negative); ~HepC Num1 0.18 S/CO (0.00-0.79); ~Hepatitis C Antibody Nonreactive (Nonreactive)
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
[2020-10-17 18:00] VITALS: BP 125/64; PULSE 91; TEMP 36.6
[2020-10-18] MEDS: OLANZapine 5 MG TABLET PO (08:59)
[2020-10-18] MEDS: Nitrofurantoin Monohyd/M-Cryst 100 MG CAPSULE PO ×2 (08:59→20:35)
[2020-10-18 09:02] VITALS: BP 137/77; PULSE 97; RESP 18; TEMP 36.2; O2SAT 94
[2020-10-18] MEDS: Cyclobenzaprine HCl 5 MG TABLET 7.5 MG PO (14:51)
[2020-10-18 16:45] VITALS: BP 137/81; PULSE 80; TEMP 36.6
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
[2020-10-19] MEDS: Cyclobenzaprine HCl 5 MG TABLET 7.5 MG PO (02:33)
[2020-10-19] MEDS: OLANZapine 5 MG TABLET PO (08:55)
[2020-10-19] MEDS: Nitrofurantoin Monohyd/M-Cryst 100 MG CAPSULE PO ×2 (09:38→19:46)
[2020-10-19 09:51] VITALS: BP 136/89; PULSE 88; RESP 18; TEMP 36.2; O2SAT 95
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
[2020-10-19 16:45] VITALS: BP 131/79; PULSE 93; TEMP 33.8
[2020-10-20 06:00] VITALS: BP 136/78; PULSE 78
[2020-10-20] MEDS: OLANZapine 5 MG TABLET PO (09:12)
[2020-10-20] MEDS: Nitrofurantoin Monohyd/M-Cryst 100 MG CAPSULE PO ×2 (12:16→20:36)
[2020-10-20] MEDS: Cyclobenzaprine HCl 5 MG TABLET 7.5 MG PO ×2 (13:43→21:20)
[2020-10-20 15:11] LABS: Anti Nuclear Antibody Screen NEGATIVE (NEGATIVE)
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
[2020-10-20 18:00] VITALS: RESP 16
[2020-10-21] MEDS: Cyclobenzaprine HCl 5 MG TABLET 7.5 MG PO ×2 (02:42→20:57)
[2020-10-21] MEDS: Nitrofurantoin Monohyd/M-Cryst 100 MG CAPSULE PO ×2 (09:39→20:58)
[2020-10-21] MEDS: OLANZapine 5 MG TABLET PO (09:39)
[2020-10-21 10:43] VITALS: BP 139/83; PULSE 97
[2020-10-21] MEDS: Ibuprofen 600 MG TABLET PO (17:39)
[2020-10-21 18:00] VITALS: BP 106/54; PULSE 87; TEMP 36.3
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
[2020-10-22] MEDS: OLANZapine 5 MG TABLET PO (09:02)
[2020-10-22] MEDS: Nitrofurantoin Monohyd/M-Cryst 100 MG CAPSULE PO ×2 (09:02→18:36)
[2020-10-22 09:03] VITALS: BP 130/81; PULSE 80
[2020-10-22 11:17] LABS: Smooth Muscle Antibody 21 U (<20)
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
[2020-10-22] MEDS: Ibuprofen 600 MG TABLET PO (18:35)
[2020-10-23] MEDS: OLANZapine 5 MG TABLET PO (09:17)
[2020-10-23] MEDS: Nitrofurantoin Monohyd/M-Cryst 100 MG CAPSULE PO ×2 (09:17→20:29)
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
[2020-10-23] MEDS: Ibuprofen 600 MG TABLET PO (20:30)
[2020-10-24] MEDS: OLANZapine 5 MG TABLET PO (09:26)
[2020-10-24] MEDS: Nitrofurantoin Monohyd/M-Cryst 100 MG CAPSULE PO ×2 (09:26→19:56)
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
[2020-10-24 18:00] VITALS: BP 137/76; PULSE 92; TEMP 37
[2020-10-24] MEDS: Cyclobenzaprine HCl 5 MG TABLET 7.5 MG PO (19:07)
[2020-10-24] MEDS: Ibuprofen 600 MG TABLET PO (20:53)
[2020-10-25] MEDS: OLANZapine 5 MG TABLET PO (08:55)
[2020-10-25] MEDS: Nitrofurantoin Monohyd/M-Cryst 100 MG CAPSULE PO ×2 (08:55→20:41)
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
[2020-10-25 18:00] VITALS: BP 141/81; PULSE 81; TEMP 36.8
[2020-10-25] MEDS: traZODone HCL 50 MG TABLET PO (21:51)
[2020-10-25] MEDS: Ibuprofen 600 MG TABLET PO (21:51)
[2020-10-26] MEDS: Nitrofurantoin Monohyd/M-Cryst 100 MG CAPSULE PO ×2 (09:28→20:08)
[2020-10-26] MEDS: OLANZapine 5 MG TABLET PO (09:28)
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
[2020-10-26 18:00] VITALS: BP 131/63; PULSE 99; TEMP 36.8
[2020-10-27] MEDS: Nitrofurantoin Monohyd/M-Cryst 100 MG CAPSULE PO (09:21)
[2020-10-27] MEDS: OLANZapine 5 MG TABLET PO (09:21)
[2020-10-27 16:46] VITALS: BP 152/92; PULSE 94; RESP 18; TEMP 36.5; O2SAT 97
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
[2020-10-27] MEDS: Ibuprofen 600 MG TABLET PO (19:08)
[2020-10-27] MEDS: Cyclobenzaprine HCl 5 MG TABLET 7.5 MG PO (19:42)
[2020-10-27 20:20] VITALS: RESP 20
[2020-10-28] MEDS: OLANZapine 5 MG TABLET PO (09:56)
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
[2020-10-28 18:00] VITALS: BP 134/78; PULSE 83; TEMP 36.6
[2020-10-28] MEDS: Cyclobenzaprine HCl 5 MG TABLET 7.5 MG PO (21:41)
[2020-10-28] MEDS: Ibuprofen 600 MG TABLET PO (22:39)
[2020-10-28 23:10] VITALS: BP 119/60; PULSE 77
[2020-10-29] MEDS: OLANZapine 5 MG TABLET PO (09:26)
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
[2020-10-29 18:00] VITALS: BP 91/62; PULSE 82; TEMP 36.9
[2020-10-30 06:52] VITALS: BP 140/88; PULSE 86; TEMP 36.6; O2SAT 97
[2020-10-30] MEDS: OLANZapine 5 MG TABLET PO (09:23)
[2020-10-30 18:00] VITALS: BP 107/53; PULSE 86; TEMP 36.8
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
[2020-10-31] MEDS: OLANZapine 5 MG TABLET PO (09:03)
[2020-10-31 09:12] VITALS: BP 144/90; PULSE 82; RESP 18; TEMP 36.6; O2SAT 96
[2020-10-31] MEDS: Ibuprofen 600 MG TABLET PO (10:17)
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
[2020-10-31 18:00] VITALS: BP 144/88; PULSE 84; TEMP 36.2
[2020-11-01] MEDS: OLANZapine 5 MG TABLET PO (09:15)
[2020-11-01 11:41] VITALS: BP 105/53; PULSE 80; RESP 18; TEMP 36.5; O2SAT 95
[2020-11-01 18:00] VITALS: BP 150/77; PULSE 92; TEMP 36.4
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
[2020-11-02] MEDS: OLANZapine 5 MG TABLET PO (09:24)
[2020-11-02 10:16] VITALS: BP 161/79; PULSE 95; RESP 20; TEMP 36.7; O2SAT 96
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
[2020-11-02] MEDS: Cyclobenzaprine HCl 5 MG TABLET 7.5 MG PO ×2 (14:30→21:09)
[2020-11-02] MEDS: Ibuprofen 600 MG TABLET PO (14:30)
[2020-11-02 16:49] VITALS: BP 126/74; PULSE 98; RESP 18; TEMP 36; O2SAT 95
[2020-11-03] MEDS: OLANZapine 5 MG TABLET PO (09:37)
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
[2020-11-03] MEDS: Ibuprofen 600 MG TABLET PO (13:07)
[2020-11-03 18:00] VITALS: BP 128/60; PULSE 85; TEMP 36.6
[2020-11-03] MEDS: traZODone HCL 50 MG TABLET PO (22:48)
[2020-11-04 06:00] VITALS: BP 139/90; PULSE 99; RESP 16; TEMP 36.3; O2SAT 96
[2020-11-04] MEDS: OLANZapine 5 MG TABLET PO (09:33)
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
== END 2020-11-04 11:19 | disposition home or self-care (01) | DRG 885 ==
PROVIDERS: Hospitalist; Internal Medicine; Admitting Provider Psychiatry & Neurology Psychiatry; Visit Provider Clinical Nurse Specialist Psychiatric/Mental Health, Adult
DX: F25.0 Schizoaffective disorder, bipolar type (principal); N39.0 Urinary tract infection, site not specified; E66.01 Morbid (severe) obesity due to excess calories; Z87.820 Personal history of traumatic brain injury; Z91.14 Patient's other noncompliance with medication regimen; Z87.891 Personal history of nicotine dependence; Z88.5 Allergy status to narcotic agent; Z79.899 Other long term (current) drug therapy
CPT/HCPCS: 36415; 74176; 80053; 80061; 81001; 82550; 82552; 83036; 83540; 85025; 86038; 86039; 86255; 86704; 86706; 86803; 87086; 87340; 93005; J1200; J2060; J2426; Q0163

== ENCOUNTER 2022-04-01 11:32 | Outpatient (REF) | payer OTHER, SELFPAY | END 2022-04-01 11:33 | disposition home or self-care (01) | LOC: HO.HMGCX 11:32 | PROVIDERS: PCP Nurse Practitioner Family; Visit Provider Internal Medicine | DX: Z13.89 Encounter for screening for other disorder (principal) ==

== ENCOUNTER 2022-04-01 15:13 | Inpatient (IN) | payer OTHER, SELFPAY ==
[2022-04-01 15:20] VITALS: BP 128/56; BP 128/70; PULSE 82; PULSE 85; RESP 18; TEMP 36.9; O2SAT 98; BMI 59.7
--- OUTSIDE RECORDS SUMMARY | 2022-04-01 16:05 | XMS_ITS | Continuity of Care Document ---
:1970 Author Organization [facility] Address [address] [place] [id number]- Care Team Providers Name Role Phone Fran FORMAN, Sb Allison Primary Care Physician Encounter [facility] [place] Date(s): 10/16/21 - 10/16/[address] [address]- Encounter Diagnosis Fall (Final) - 10/16/21 Shoulder pain (Final) - 10/16/21 Discharge Disposition: A-D/C Home Attending Physician: Josesito Fang MD Admitting Physician: Josesito Fang MD Referring Physician: Not on Staff, Referring MD Allergies, Adverse Reactions, Alerts Substance Reaction Severity Status oxybutynin hallucination Active shellfish Active TraMADOL Hydrochloride Active TraMADOL Hydrochloride ER Active Immunizations Given and Recorded Vaccine Date Status Refusal Reason tetanus/diphtheria/pertussis, acel(Tdap) 08/10/17 Recorde d Problem List Condition Effective Dates Status Health Status Informant 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 Active Psychosis NOS(Confirmed) 01/30/11 Active Severe obesity(Confirmed) Active Traumatic brain injury(Confirmed) 07/17/11 Active Vital Signs Most recent to oldest 1 2 3 [Reference Range]: Oxygen Saturation [94-100 %] 97 % 98 % 97 % (10/16/21 7:15 AM) (10/16/21 4:47 AM) (10/16/21 12:30 AM) Pulse Rate [55-90 bpm] 87 bpm 90 bpm 85 bpm (10/16/21 7:15 AM) (10/16/21 4:47 AM) (10/16/21 12:30 AM) Blood Pressure [90-138/55-84 135/82 mm Hg 133/80 mm Hg 129 /78 mm Hg mm Hg] (10/16/21 7:15 AM) (10/16/21 4:47 AM) (10/16/21 12:30 AM) Respiratory Rate [16-30 17 br/min 17 br/min 18 br/mi n br/min] (10/16/21 7:15 AM) (10/16/21 4:47 AM) (10/16/21 12:30 AM) Temperature [96.8-100.4 98.4 DegF 98.2 DegF 98.1 Deg F DegF] (10/16/21 7:15 AM) (10/16/21 4:47 AM) (10/16/21 12:30 AM) Mode of Delivery (Oxygen) Room air Room air Room a ir (10/16/21 7:15 AM) (10/16/21 4:47 AM) (10/16/21 12:30 AM) Blood pressure sites Arm, left Arm, left Arm, left (10/16/21 7:15 AM) (10/16/21 4:47 AM) (10/16/21 12:30 AM) Temperature Route Oral Oral Oral (10/16/21 7:15 AM) (10/16/21 4:47 AM) (10/16/21 12:30 AM) Dry Weight 145 kg (10/16/21 12:30 AM) Dry Weight Obtained Via Patient/family stated (10/16/21 12:30 AM) Social History Social History Type Response Smoking Status Never (less than 100 in life time) entered on: 11/28/18 Sex
--- OUTSIDE RECORDS SUMMARY | 2022-04-01 16:05 | XMS_ITS | Continuity of Care Document ---
:1970 Author Organization [facility] Address [address] [place] [address]- Care Team Providers Name Role Phone Not on Staff, PCP Primary Care Physician Unavailable Encounter [facility] Date(s): 03/23/22 - 03/29/22 [facility] [address] [place] [address]- Encounter Diagnosis Delusions (Final) - 03/23/22 COVID (Final) - 03/23/22 Morbid obesity (Final) - 03/29/22 Homeless (Final) - 03/29/22 Discharge Disposition: A-D/C Home Attending Physician: Ligia Horn MD Admitting Physician: Ligia Horn MD Referring Physician: Not on Staff, Referring MD Allergies, Adverse Reactions, Alerts Substance Reaction Severity Status oxybutynin hallucination Active shellfish Active TraMADOL Hydrochloride Active TraMADOL Hydrochloride ER Active Immunizations Given and Recorded Vaccine Date Status Refusal Reason tetanus/diphtheria/pertussis, acel(Tdap) 08/10/17 Recorde d Medications No Known Medications Problem List Condition Confirmation Course Effective Dates Status Health Stat us Informant COVID-191 Confirmed 03/26/22 Active 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 Severe obesity Confirmed Active Traumatic brain Confirmed 07/17/11 Active injury 1Problem added by Discern Expert Vital Signs Most recent to oldest 1 2 3 [Reference Range]: Oxygen Saturation [94-100 %] 99 % 100 % 100 % (03/29/22 2:43 PM) (03/29/22 1:19 AM) (03/28/22 7:0 0 PM) Pulse Rate [55-90 bpm] 90 bpm 82 bpm 78 bpm (03/29/22 2:43 PM) (03/29/22 1:19 AM) (03/28/22 7:0 0 PM) Blood Pressure [90-138/55-84 168/68 mm Hg 169/89 mm Hg 171 /93 mm Hg mm Hg] *H* *H* *H* (03/29/22 2:43 PM) (03/29/22 1:19 AM) (03/28/22 7:0 0 PM) Respiratory Rate [16-30 16 br/min 20 br/min 22 br/mi n br/min] (03/29/22 2:43 PM) (03/29/22 1:19 AM) (03/28/22 7:0 0 PM) Temperature [96.8-100.4 DegF] 98.3 DegF 98.7 DegF 98 .5 DegF (03/29/22 2:43 PM) (03/29/22 1:19 AM) (03/28/22 7:0 0 PM) Liters per Minute 0 L/min (03/26/22 3:31 PM) Mode of Delivery (Oxygen) Room air Room air Room a ir (03/29/22 2:43 PM) (03/29/22 1:19 AM) (03/28/22 7:0 0 PM) Blood pressure sites Arm, right Arm, left Arm, left (03/29/22 1:19 AM) (03/28/22 7:00 PM) (03/27/22 10: 48 PM) Temperature Route Oral Oral Oral (03/29/22 2:43 PM) (03/29/22 1:19 AM) (03/28/22 7:0 0 PM) Social History Social History Type Response Smoking Status Never (less than 100 in life time) entered on: 11/28/18 Sex Note Laura Keyes DO: PERFORM Event Display: Patient Education Leaflets Authored Date: [id number] COVID-19 Test Positive Adult ?? 575 IMPORTANT INSTRUCTIONS ABOUT COVID-19 ?? You tested positive for COVID-19. ?? General Information ? Even when infected with COVID-19, many people have mild symptoms and recover on their own. There are no specific treatments for mild COVID infections but many people feel better with simple supportivestrategies: rest, plenty of oral fluids, and ibuprofen and/or acetaminophen for pain and fever. ? It is very important for you to help to prevent the spread of the virus. ? 1. Stay home except to get medical care. People who are mildly ill with COVID- 19 should stay at home during their illness.? You should not go to work, school, or to any public areas.? You should not allow guestsin your home. ? Absolutely no large crowds, public transportation, ride sharing or taxis.? 2. Wash your hands often. Wash your hands often with soap and water for at least 20 seconds. If soap and water are not available, clean your hands with hand supervisor dry cleaning, covering all surfaces of your hands and rubbing them together until they feel dry. Avoid touching your eyes, nose, and mouth with unwashed hands. ? 3. Wear a face mask over your nose and mouth. Masks are one of the best ways to prevent the spread of COVID.?? When someone is sick, all household members should wear a mask when indoors and within 6 feet of another person. If it is absolutely necessary to leave your house, wear a mask at all times. ?? 4. If possible, separate yourself from other people your house for at least 10 days . If you have aseparate bathroom, have one bathroom be for the sick person only. You should not share dishes, drinking glasses, cups, eating utensils, towels, or bedding with other people or pets in your home. After using these items, they should be washed thoroughly with soap and water. Try to avoid contact with people over 60 years old or anyone with chronic heart or lung disease, diabetes, kidney disease or any condition that weakens their immune system (such as cancer, transplant patients), since they have a higher risk of becoming very sick if they get COVID-19.? Young children may not be able to be isolated from family members or caregivers. Ideally, one household member should be the designated caregiver and should isolate with the child. If you are you may safely continue to do so. ? 5. Clean all high-touch surfaces every day. High touch surfaces include counters, tabletops, doorknobs, bathroom fixtures, toilets, phones, keyboards, tablets, and bedside tables. Also, clean any surfaces that may have blood, stool, or body fluids on them. Use a household cleaning spray or wipe, according to the label instructions. ? 6. Call ahead before visiting your doctor. If you need to see your doctor, it is essential that youcall first and tell them that you have or may have COVID- 19. This will help the healthcare provider ???s office take steps to keep other people from getting infected or exposed. ? When to return to the Emergency Department ? Please return to the emergency department if you feel you are getting sicker, have worsening difficulty breathing or chest pain, trouble eating/drinking, weakness, or new confusion. If possible, put on a facemask before you enter the hospital to protect other patients. If you feel you are sick enoughto call 911, be sure to tell them you may have COVID-19. ? When can I go back to my regular life? ?? You should isolate at home until any fever has been absent for 24 hours and it has been at least 10days since the onset of symptoms.? For severe cases of COVID-19, longer isolation is required.?? Your primary care provider can help you know what ???s best for you based on how quickly your child recovers. ?? Please contact your doctor to discuss his/her availability for tele-visits to help support you as needed. ? Patient Care team information Care Team PersonnelName: Pee Whitley RN Position: [facility] RN Member Role: Primary Care Nurse Name: Deepa Molina RN Position: [facility] RN Member Role: Primary Care Nurse Name: Sol Israel RN Position: [facility] RN Supv Member Role: Primary Care Nurse Name: Katharina Macedo RN Position: [facility] RN Member Role: Primary Care Nurse Name: Justin Patel III, RN Position: [facility] RN Member Role: Primary Care Nurse Name: Hortencia Rogers RN Position: S RN Member Role: Primary Care Nurse Name: Alina Groves RN Position: [facility] RN Member Role: Primary Care Nurse Name: Van Mederos RN Position: [facility] RN Member Role: Primary Care Nurse Name: Tuyet Hawk RN Position: [facility] Hospital Etcher Electrolytic Member Role: Primary Care Nurse Name: Not on Staff, PCP Position: [facility] Physician (General Medicine) Member Role: PCP Name: Isela Lam RN Position: [facility] RN Member Role: Primary Care Nurse Name: Yissel Hudson RN Position: [facility] RN Member Role: Primary Care Nurse Name: Renay Cook RN Position: [facility] RN Supv Member Role: Primary Care Nurse Name: Evita Lombardi RN Position: [facility] RN Member Role: Primary Care Nurse Name: Abi Quiñones RN Position: [facility] RN Member Role: Primary Care Nurse Name: Torri Jara RN Position: [facility] RN Member Role: Primary Care Nurse Name: Twan Duron RN Position: [facility] RN Member Role: Primary Care Nurse Name: An Delarosa RN Position: [facility] RN Member Role: Primary Care Nurse Name: Triny De La Rosa RN Position: [facility] RN Member Role: Primary Care Nurse Name: Frank Ch MD Position: [facility] Psychiatry MD Member Role: Lifetime Consulting Physician Address: Address: [address] [place] [address] Name: *[facility], ED Attending Position: [facility] ED Attendings Patient Name: Mely To RN Position: [facility] ED RN W/OE and Tasks Member Role: Patient Care Provider Name: Ligia Horn MD Position: [facility] ED Medicine MD Member Role: Admitting Physician Address: Address: [address] [place] [address] Name: Kelsey Mckeon Position: [facility] ED TA [facility] Member Role: Mason Apprentice Name: Andra Galicia RN Position: [facility] ED RN W/OE and Tasks Member Role: Patient Care Provider Care Team Related PersonsName: SULEMA WAKEFIELD Address: [place] [address] Name: PERLITA IVORY Address: [address] [address] Name: PERLITA IVORY OR MELISA Address: [address] [address]
--- OUTSIDE RECORDS SUMMARY | 2022-04-01 16:06 | XMS_ITS | Continuity of Care Document ---
:1970 Author Organization [facility] Address [address] [place] [id number]- Care Team Providers Name Role Phone Fran FORMAN, Sb Allison Primary Care Physician Encounter [facility] Date(s): 09/26/21 - 10/01/[address] [address]- Discharge Disposition: Transfer to Psych Facility Attending Physician: Gracie Pinon MD Admitting Physician: Gracie Pinon MD Referring Physician: Not on Staff, Referring MD Allergies, Adverse Reactions, Alerts Substance Reaction Severity Status oxybutynin hallucination Active shellfish Active TraMADOL Hydrochloride Active TraMADOL Hydrochloride ER Active Problem List Condition Effective Dates Status Health Status Informant 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 Active Psychosis NOS(Confirmed) 01/30/11 Active Severe obesity(Confirmed) Active Traumatic brain injury(Confirmed) 07/17/11 Active Vital Signs Most recent to oldest 1 2 3 [Reference Range]: Oxygen Saturation [94-100 %] 97 % 97 % 96 % (10/01/21 7:30 PM) (10/01/21 6:34 AM) (09/30/21 9:4 6 PM) Pulse Rate [55-90 bpm] 88 bpm 89 bpm 83 bpm (10/01/21 7:30 PM) (10/01/21 6:34 AM) (09/30/21 9:4 6 PM) Blood Pressure [90-138/55-84 mm 124/72 mm Hg 122/71 mm Hg 136/80 mm Hg Hg] (10/01/21 7:30 PM) (10/01/21 6:34 AM) (09/30/21 9:4 6 PM) Respiratory Rate [16-30 br/min] 16 br/min 17 br/min 16 br/min (10/01/21 7:30 PM) (10/01/21 6:34 AM) (09/30/21 9:4 6 PM) Temperature [96.8-100.4 DegF] 97.9 DegF 98.0 DegF 98 .3 DegF (10/01/21 7:30 PM) (10/01/21 6:34 AM) (09/30/21 9:4 6 PM) Mode of Delivery (Oxygen) Room air Room air Room a ir (10/01/21 7:30 PM) (10/01/21 6:34 AM) (09/30/21 9:4 6 PM) Blood pressure sites Arm, right Arm, right Arm, right (10/01/21 7:30 PM) (10/01/21 6:34 AM) (09/30/21 9:4 6 PM) Temperature Route Oral Oral Oral (10/01/21 7:30 PM) (10/01/21 6:34 AM) (09/30/21 9:4 6 PM) Social History Social History Type Response Smoking Status Never (less than 100 in life time) entered on: 11/28/18 Sex
--- OUTSIDE RECORDS SUMMARY | 2022-04-01 16:07 | XMS_ITS | Continuity of Care Document ---
:1970 Author Organization [facility] Address [address] [place] [id number]- Care Team Providers Name Role Phone Fran FORMAN, Sb Allison Primary Care Physician Encounter [facility] Date(s): 03/15/19 - 03/15/[address] [address]- [facility] Discharge Disposition: A-D/C Home Attending Physician: Timotyh Ho MD Admitting Physician: Timothy Ho MD Referring Physician: Not on Staff, Referring MD Allergies, Adverse Reactions, Alerts Substance Reaction Severity Status oxybutynin Active shellfish Active TraMADOL Hydrochloride Active TraMADOL Hydrochloride ER Active Medications cloNIDine 0.1 mg oral tablet See Instructions, PRN, take 1 tablet up to twice daily as needed for anxiety, # 20 tablet, Refills 2, Tot. Refills 2, Maintenance, Anxiety, 12/06/18 9:14:45 EDT, Instructions Replace Required Details, Route to Pharmacy Electronically, [id number]... Start Date: 12/06/18 Status: Orderedmelatonin 3 mg oral tablet 1 tablet = 3 mg, By Mouth, Daily at bedtime, for sleep, # 10 tablet, 3 Refills, Maintenance, 12/06/18 9:15:26 EDT, Tablet Start Date: 12/06/18 Status: Orderedziprasidone 40 mg oral capsule = 40 mg, By Mouth, Daily at supper, mood stabilizer, # 10 capsule, 2 Refills, Maintenance, 12/06/18 9:14:01 EDT, Capsule Start Date: 12/06/18 Status: Ordered Problem List Condition Effective Dates Status Health Status Informant 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 Active Psychosis NOS(Confirmed) 01/30/11 Active Traumatic brain injury(Confirmed) 07/17/11 Active Vital Signs Most recent to oldest [Reference Range]: 1 Weight 155.0 kg (03/15/19 6:46 AM) Oxygen Saturation [94-100 %] 97 % (03/15/19 6:46 AM) Pulse Rate [55-90 bpm] 90 bpm (03/15/19 6:46 AM) Blood Pressure [90-138/55-84 mm Hg] 150/92 mm Hg *H* (03/15/19 6:46 AM) Respiratory Rate [16-30 br/min] 17 br/min (03/15/19 6:46 AM) Temperature [96.8-100.4 DegF] 98.1 DegF (03/15/19 6:46 AM) Mode of Delivery (Oxygen) Room air (03/15/19 6:46 AM) Blood pressure sites Arm, right (03/15/19 6:46 AM) Temperature Route Oral (03/15/19 6:46 AM) Dry Weight 155.0 kg (03/15/19 6:46 AM) Weight Obtained Via Standing scale (03/15/19 6:46 AM) Social History Social History Type Response Smoking Status Never (less than 100 in life time) entered on: 11/28/18 Sex
--- NOTE | 2022-04-01 16:32 | MHC.EDTECH ---
Patient refused blood draw, stating its against her lutheran.
--- NOTE | 2022-04-01 17:40 | ED_ITS ---
HPI - General Adult General Chief complaint: General Medical Stated complaint: 7 months requesting evaluation Time Seen by Provider: 04/01/22 17:06 Source: patient Limitations: no limitations History of Present Illness HPI narrative: This is a 52-year-old female who is homeless, has been since the springtime. She alleges that she actually owns a home but cannot live there because there are other people living there and a housing and residence life director rule that they can stay there. The patient states that she is 6 or 7 months . She has not had any care. she denies any physical complaints except some chronic pain to her left knee, states she had a prior injury to it, initially standing that it was a fracture, later stating that it was some kind of a dislocation. She states that they could not do an x-ray because she is . Patient denies any chest pain, cough, shortness of breath. She does feel very fatigued. She was trying to sort out her homelessness today. She states she has stayed at shelters but has felt unsafe. She denies any chest pain or shortness of breath. She does have mild abdominal pain. She denies any nausea or vomiting or diarrhea. The patient refuses blood test because she states that is against her confucianist . She states we can take urine or hair samples. Related Data Previous Rx's Medication Instructions Recorded cyclobenzaprine 5 mg tablet 7.5 mg PO TID PRN muscle pain #45 11/04/20 tabs olanzapine 5 mg tablet (Zyprexa) 5 mg PO DAILY PRN agitation, 11/04/20 symptoms of irritability #30 tabs trazodone 50 mg tablet 50 mg PO BEDTIME PRN insomnia #30 11/04/20 tabs tolterodine 4 mg capsule,extended 8 mg PO Q24H 30 days #60 caps 12/09/20 release 24 hr diclofenac sodium 50 mg 50 mg PO Q12H PRN pain 30 days #60 06/09/21 tablet,delayed release tabs diclofenac sodium 3 % topical gel 1 appl topical BID 30 days #100 04/01/22 grams Allergies Allergy/AdvReac Type Severity Reaction Status Date / Time oxybutynin Allergy Unknown Hallucinati Unverified 04/01/22 11:16 ons tramadol Allergy Unknown Swelling/Hi Verified 04/01/22 11:16 ves tramadol Allergy Unknown edema, Uncoded 04/01/22 11:16 hives, sob Review of Systems Review of Systems: As per HPI Yes all other systems are reviewed and are negative PMFSH Past Medical History Medical History Delusions Paranoid Social History Social History Household Members: Family Household Members Other:: 3 Housing: Unknown / Unable to assess Do you presently have visiting nurse or other home services: No Unable to assess alcohol history related to: Refusing to respond Alcohol intake: never Patient Tobacco Use Status: Former Tobacco user Smoked in Last 30 Days: No Second Hand Smoke Exposure: No Use of substances other than those prescribed or required for medical reasons: No Substance Use Type: Unknown Advance Directives: No Advance Directives Information Provided: No Patient : Yes service: Yes (N/A) Sexual orientation: Decline to Answer Physical Exam ED Vital Signs: Vital Signs - 24 hr 04/01/22 15:20 04/01/22 19:11 04/01/22 22:12 Temperature 98.4 F Pulse Rate 85 Respiratory Rate 18 20 20 Blood Pressure 128/56 L Pulse Oximetry 98 Oxygen Delivery Method Room Air BMI result Body Mass Index 59.7 Const Other: morbidly obese General: cooperative and no acute distress Orientation/consciousness: patient oriented x3 HENMT Head: Yes normal to inspection General nose exam: Normal external nose present Mouth: moist mucous membranes Throat: Yes posterior oropharynx normal, Yes tonsils normal and Yes uvula midline Eyes Eyelids: Yes eyelids normal Conjunctivae: conjunctivae normal Pupils: Equal, round and reactive pupils present Neck Neck: Yes supple Resp Effort & Inspection: normal respiratory effort Auscultation: clear to auscultation bilaterally Cardio Rate: regular rate Rhythm: regular rhythm Heart sounds: S1 normal heart sound present, S2 normal heart sound present, no gallops, no murmurs and no rubs GI Inspection: No distended Palpation (GI): Soft to palpation and nontender Auscultation: normal bowel sounds Skin General skin exam: other (Warm and dry) Neuro General: patient oriented x3 and CN's II-XI intact bilaterally Cranial nerves: Yes Equal, round and reactive pupils present Extrem General: Yes no pedal edema Psych Affect: normal affect Attitude: cooperative Course Course Course Narrative: Bedside ED ultrasound was done to assess possible , since the patient states she 6-7 months, that she would be easy to visualize on ultrasound, despite the patient's obesity. The patient's uterus and bladder were visualized. Imaging was not ideal to the patient's obesity however no IUP P was visualized, certainly nothing that would be consistent with a 6 or 7 month . Urine test negative. Patient refused blood work. Patient was evaluated by the care team and was thought to be delusional, has a known history of schizoaffective disorder. Patient is being placed on a Section 12 for inability to care for self due to psychiatric illness. Patient was calm and cooperative in the ED. Patient may be delusional, or may merely be manipulative and claiming that she is and had noted that she is evaluated for extended period of time and is out of the cold and rain. Medical Decision Making Differential Diagnosis Differential Diagnoses: The differential diagnosis associated with the presentation includes Schizoaffective disorder, delusional thought pattern, manipulative behavior, substance abuse Consult Healthcare Provider Management of the patient was discussed with: Behavioral Health Provider Lab Data MDM Lab Attestation statement: I reviewed the patient's lab results. Labs: Lab Results 04/01/22 04/01/22 04/01/22 Range/Units 19:35 19:35 19:35 Urine Color Yellow Urine Appearance Clear Urine pH 7.5 (5.0-9.0) Ur Specific [place] 1.025 (1.005-1.025) Urine Protein Negative (Neg-Trace) mg/dL Urine Glucose (UA) 250 H (Negative) mg/dL Urine Ketones Negative (Negative) mg/dL Urine Blood Negative (Negative) Urine Nitrite Negative (Negative) Ur Leukocyte Esterase Trace H (Negative) Urine RBC 3-5 H (0-2) /HPF Urine WBC 0-5 (0-5) /HPF Ur Squamous Epith Cells 6-10 (0-2) /HPF Urine Bacteria 2+ (None Seen) Hyaline Casts 0-2 (0-2) /LPF Urine Test NEGATIVE (NEGATIVE) COVID-19 (ROBYN) Negative (Negative) COVID-19 Clin Com See Note External Record Review External record reviewed: Inpatient record and Other Chronic Conditions Patient?s care impacted by: Other ( schizophrenia) Social Determinants Patient?s care significantly limited by Social Determinants of Health including: Inadequate housing Discharge Plan Discharge Clinical Impression: Schizoaffective disorder, bipolar type, Delusional ideas Patient Disposition: Still a Patient Prescriptions: No Action tolterodine 4 mg capsule,extended release 24hr 8 mg PO Q24H 30 Days Qty: 60 0RF diclofenac sodium 50 mg tablet,delayed release (DR/EC) 50 mg PO Q12H PRN (Reason: pain) 30 Days Qty: 60 0RF Rx Instructions: use sparingly trazodone 50 mg Tablet 50 mg PO BEDTIME PRN (Reason: insomnia) Qty: 30 0RF cyclobenzaprine 5 mg Tablet 7.5 mg PO TID PRN (Reason: muscle pain) Qty: 45 0RF olanzapine [Zyprexa] 5 mg tablet 5 mg PO DAILY PRN (Reason: agitation, symptoms of irritability) Qty: 30 0RF diclofenac sodium 3 % gel 1 appl topical BID 30 Days Qty: 100 0RF
--- NOTE | 2022-04-01 18:38 | MHC.CM.ED ---
CM received consult from Dr. Moody. Pt is homeless and believes she is (6-7 months). Pt is 52 years old. Morbidly obese. Pt has hx schizophrenia and was [place] [facility] [place]. CARE team consult ordered for delusions. Pt refusing blood work, as it is against her church and agrees to urine and hair testing. Had bedside ultrasound. Per Dr. Moody, no . CM will follow if needed.
--- NOTE | 2022-04-01 19:10 | MHC.EDTECH ---
PT Refused vital signs BP and pulse. Pt also refuse labs
[2022-04-01 19:11] VITALS: RESP 20
--- NOTE | 2022-04-01 19:34 | MHC.CARE ---
CARE Team spoke with patient in ED21. Pt. appeared disheveled and older than her stated age. Per Pt. she reported she was 50 y/o and then 52 y/o. Pt. reported she is with a boy and she will be giving in a few months at a birthing center. Pt. reported she is in her third trimester. She reported she has one telehealth appt left before she delivers. Pt. reported she doesn't see a therapist or psychiatrist. Per Pt. 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 Pt. reported she has 2 college-educated children. Pt. reported it is against her denominational to give blood but is willing to give a urine or hair sample. Insight and judgment are poor. She denied SI/HI/AH/VH. Once medically cleared a full eval will be done.
[2022-04-01 19:45] LABS: Appearance Urine Clear; Color Urine Yellow; Glucose Urine UA 250 mg/dL (Negative); Leukocyte Esterase Urine Trace (Negative); Nitrite Urine Negative (Negative); PH 7.5 (5.0-9.0); Specific Gravity - Urine 1.025 (1.005-1.025); UMIC TRIGGER UACC YES; Urine Blood Negative (Negative); Urine Ketones Negative (Negative); Urine Protein Negative (Neg-Trace)
[2022-04-01 19:47] LABS: Bacteria Urine 2+ (None Seen); Hyaline Casts Urine 0-2 /LPF (0-2); WBC Urine 0-5 /HPF (0-5)
[2022-04-01 19:54] LABS: COVID-19 Test Negative (Negative); IDNOW Serial# 6674DD1D
[2022-04-01 20:50] LABS: UPreg QC Valid YES; Urine Pregnancy NEGATIVE (NEGATIVE)
--- NOTE | 2022-04-01 22:10 | MHC.EDTECH ---
PT Refused vital signs. pt states it is against anabaptist
[2022-04-01 22:12] VITALS: RESP 20
[2022-04-02 01:06] VITALS: RESP 19
[2022-04-02 01:48] VITALS: BP 113/46; RESP 20; O2SAT 95
[2022-04-02 03:43] LABS: Amphetamine Screen Urine Not Detected (Not Detect); Barbiturates, Urine Not Detected (Not Detect); Benzodiazepines Screen Urine Not Detected (Not Detect); Cannabinoid Screen Urine Not Detected (Not Detect); Cocaine Screen Urine Not Detected (Not Detect); Fentanyl, urine Not Detected (Not Detect); Opiate Screen Urine Not Detected (Not Detect); Phencyclidine Screen Urine Not Detected (Not Detect)
[2022-04-02 05:57] VITALS: BP 130/73; PULSE 87; RESP 19; O2SAT 95
--- NOTE | 2022-04-02 10:21 | ED.GENADULT ---
HPI - General Adult General Chief complaint: General Medical Stated complaint: 7 months requesting evaluation Time Seen by Provider: 04/01/22 17:06 Source: patient Limitations: no limitations Related Data Home Medications Medication Instructions Recorded Confirmed No Known Home Meds 04/02/22 04/17/22 Allergies Allergy/AdvReac Type Severity Reaction Status Date / Time oxybutynin Allergy Unknown Hallucinati Unverified 04/01/22 11:16 ons tramadol Allergy Unknown Swelling/Hi Verified 04/01/22 11:16 ves tramadol Allergy Unknown edema, Uncoded 04/01/22 11:16 hives, sob PMFSH Past Medical History Medical History Delusions Paranoid Social History Social History Household Members: None Household Members Other:: 3 Housing: Homeless Do you presently have visiting nurse or other home services: No Unable to assess alcohol history related to: Refusing to respond Alcohol intake: unknown Patient Tobacco Use Status: Former Tobacco user Second Hand Smoke Exposure: No Substance Use Type: Unknown Advance Directives: No service: No Sexual orientation: Straight/Heterosexual Physical Exam ED Vital Signs: Vital Signs - 24 hr 04/01/22 15:20 04/01/22 19:11 04/01/22 22:12 Temperature 98.4 F Pulse Rate 85 Respiratory Rate 18 20 20 Blood Pressure 128/56 L Pulse Oximetry 98 Oxygen Delivery Method Room Air 04/02/22 01:06 04/02/22 01:48 04/02/22 05:57 Temperature Pulse Rate 87 Respiratory Rate 19 20 19 Blood Pressure 113/46 L 130/73 Pulse Oximetry 95 95 Oxygen Delivery Method Room Air Room Air BMI result Body Mass Index 59.7 Medications Administered Discontinued Medications Generic Name Dose Route Start Last Admin Trade Name Freq PRN Reason Stop Dose Admin Melatonin 6 mg 04/11/22 21:00 04/12/22 20:03 Melatonin 3 Mg Tablet PO Not Given BEDTIME BRIAN Medical Decision Making Lab Data Labs: Lab Results 04/01/22 04/01/22 04/01/22 Range/Units 19:35 19:35 19:35 Urine Color Yellow Urine Appearance Clear Urine pH 7.5 (5.0-9.0) Ur Specific Britt[place] 1.025 (1.005-1.025) Urine Protein Negative (Neg-Trace) mg/dL Urine Glucose (UA) 250 H (Negative) mg/dL Urine Ketones Negative (Negative) mg/dL Urine Blood Negative (Negative) Urine Nitrite Negative (Negative) Ur Leukocyte Esterase Trace H (Negative) Urine RBC 3-5 H (0-2) /HPF Urine WBC 0-5 (0-5) /HPF Ur Squamous Epith Cells 6-10 (0-2) /HPF Urine Bacteria 2+ (None Seen) Hyaline Casts 0-2 (0-2) /LPF Urine Test NEGATIVE (NEGATIVE) Urine Opiates Screen (Not Detect) Urine Fentanyl Screen (Not Detect) Ur Barbiturates Screen (Not Detect) Ur Phencyclidine Scrn (Not Detect) Ur Amphetamines Screen (Not Detect) U Benzodiazepines Scrn (Not Detect) Urine Cocaine Screen (Not Detect) U Marijuana (THC) Screen (Not Detect) COVID-19 (ROBYN) Negative (Negative) COVID-19 Clin Com See Note 04/01/22 Range/Units 19:35 Urine Color Urine Appearance Urine pH (5.0-9.0) Ur Specific Britt[place] (1.005-1.025) Urine Protein (Neg-Trace) mg/dL Urine Glucose (UA) (Negative) mg/dL Urine Ketones (Negative) mg/dL Urine Blood (Negative) Urine Nitrite (Negative) Ur Leukocyte Esterase (Negative) Urine RBC (0-2) /HPF Urine WBC (0-5) /HPF Ur Squamous Epith Cells (0-2) /HPF Urine Bacteria (None Seen) Hyaline Casts (0-2) /LPF Urine Test (NEGATIVE) Urine Opiates Screen Not Detected (Not Detect) Urine Fentanyl Screen Not Detected (Not Detect) Ur Barbiturates Screen Not Detected (Not Detect) Ur Phencyclidine Scrn Not Detected (Not Detect) Ur Amphetamines Screen Not Detected (Not Detect) U Benzodiazepines Scrn Not Detected (Not Detect) Urine Cocaine Screen Not Detected (Not Detect) U Marijuana (THC) Screen Not Detected (Not Detect) COVID-19 (ROBYN) (Negative) COVID-19 Clin Com Discharge Plan Discharge Clinical Impression: Schizoaffective disorder, bipolar type, Delusional ideas Patient Disposition: Still a Patient Interventions: Admission Worksheet (ED) Last Done: 04/02/22 14:15 Discharge Date/Time: 04/02/22 16:05
--- NOTE | 2022-04-02 10:32 | PC.NURSE ---
Addendum entered by Maddy Loredo 04/02/22 11:28: Pt updated on status by Care team. Addendum entered by Maddy Loredo 04/02/22 10:46: Belongings in closet. Per pt I dont' take any medication because it's against my anabaptist. pt reports non med compliance since homelessness months +responding to internal stimuli. Engaging in dialogue with self in room alone. Original Note: Pt brought over to [facility]3 From Main ed.
[2022-04-02 11:20] VITALS: RESP 18
--- NOTE | 2022-04-02 12:31 | ECG_ITS ---
Test Reason : MEDICAL CLEARANCE Blood Pressure : / mmHG Vent. Rate : 078 BPM Atrial Rate : 078 BPM P-R Int : 132 ms QRS Dur : 086 ms QT Int : 366 ms P-R-T Axes : -10 058 040 degrees QTc Int : 417 ms Normal sinus rhythm Normal ECG When compared with ECG of 16-OCT-2020 16:58, No significant change was found Referred By: Dakota Ortega Electronically Signed By:VASQUEZ CONN MD
[2022-04-02 16:54] VITALS: BMI 59.2
[2022-04-02 22:28] VITALS: BP 112/68; PULSE 84; RESP 16; TEMP 36.6; O2SAT 97
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
[2022-04-03 08:46] VITALS: BP 157/81; PULSE 84; RESP 16; TEMP 36.7; O2SAT 97
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
[2022-04-04 08:56] VITALS: BP 145/90; PULSE 92; RESP 16; TEMP 36.7; O2SAT 98
[2022-04-04 18:00] VITALS: BP 145/65; PULSE 86; RESP 18; TEMP 37
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
[2022-04-05 08:55] VITALS: BP 108/54; PULSE 85; RESP 16; TEMP 37.2; O2SAT 94
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
[2022-04-06 13:20] VITALS: BP 111/61; PULSE 83; RESP 18; TEMP 37.4; O2SAT 97
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
[2022-04-07 20:05] VITALS: BP 111/67; PULSE 83; TEMP 36.6
[2022-04-08 07:00] VITALS: BMI 59.1
[2022-04-08 09:48] VITALS: BP 139/73; PULSE 97; RESP 16; TEMP 37; O2SAT 95
--- NOTE | 2022-04-08 14:49 | HO.PSYCHPN ---
Subjective Subjective Date of Service: 04/08/22 Reason For Visit: Schizoaffecive disorder, dipolar type Subjective Notes: Conditional Voluntary Healthcare Proxy: No Guardianship: No Medical Problems Affecting Mental Status: No Interim History: Pt continues to decline housing options, and options introduced by [facility], along with all psych treatment options. Several reasons-, may need to go to work in [place], [place], upcoming court dates, not meeting her criteria for safety in housing. At her request, given lists of apartments for rent in [facility] Pt reports she can afford rent and will ask for help with deposit from [facility] Tentative discharge on 04/13. Medication Compliance: No Side effects from medications: No Attending Groups: Intermittent Review of Systems Acute medical concerns: No Medical Review of Systems: unchanged Mental Status Exam Mental Status Exam Patient Appearance: Appropriate Patient Orientation: Person, Place and Time Level of Consciousness: Alert Patient Behavior: Talkative, Cooperative and Good Eye Contact Mood Description: Labile and Apprehensive Affect Description: Labile and Apprehensive Patient Cognition Impaired: No Ability to Follow Directions: Good Speech Pattern: Spontaneous Speech, Cofabulation, Rapid and Pressured Memory Description: Remote Impaired and Episodic Impaired Hallucinations: None Delusions: Paranoid Ideation, Grandiose and Present Perceptual Disturbances: Derealization Thought Process: Illogical, Distracted and Goal Oriented Thought Content: positive for Flight of Ideas, positive for Circumstantial, positive for Goal Oriented, positive for Perseveration, positive for Preoccupation, positive for Tangential, positive for Suicidal Ideation (denies) and positive for Homicidal Ideation (denies) Depressive Symptoms: Increased Anxiety, Increased Irritability, Significant Weight Gain and Thoughts of /Suicide (denies) Abnormal Motor Activity Signs and Symptoms: Restlessness Judgement: Poor Diagnostics Vital Signs (24Hr): Vital Signs - 24 hr 04/07/22 20:05 04/08/22 09:48 Temperature 97.8 F 98.6 F Pulse Rate 83 97 Respiratory Rate 16 Blood Pressure 111/67 139/73 Pulse Oximetry 95 Oxygen Delivery Method Room Air BMI result Body Mass Index 59.1 Medications Medications Current Medications Acetaminophen (Acetaminophen 325 Mg Tablet) 650 mg PO Q6H PRN PRN Reason: Headache/Pain Mild Scale (1-3) Al Hydroxide/Mg Hydroxide (Magnesium Hydrox/Alum Hydrox 30 Ml Oral.Susp) 30 ml PO Q6H PRN PRN Reason: Heartburn/Nausea Hydroxyzine HCl (Hydroxyzine Hcl 25 Mg Tablet) 25 mg PO Q6H PRN PRN Reason: Anxiety Magnesium Hydroxide (Milk Of Magnesia 30 Ml Oral.Susp) 30 ml PO DAILY PRN PRN Reason: Constipation Olanzapine (Olanzapine Odt 10 Mg Tab.Rapdis) 10 mg TRANSLINGU BID PRN PRN Reason: psychosis, agitation Trazodone HCl (Trazodone Hcl 50 Mg Tablet) 50 mg PO BEDTIME PRN PRN Reason: Insomnia Allergies Allergies Allergy/AdvReac Type Severity Reaction Status Date / Time oxybutynin Allergy Unknown Hallucinati Unverified 04/01/22 11:16 ons tramadol Allergy Unknown Swelling/Hi Verified 04/01/22 11:16 ves tramadol Allergy Unknown edema, Uncoded 04/01/22 11:16 hives, sob Assessment & Plan Assessment & Plan (1) Schizoaffective disorder, bipolar type: Status: Acute Code(s): F25.0 - Schizoaffective disorder, bipolar type Plan 52 yo female, hx of schizoaffective disorder, bipolar type. Off medications for several months, family has an active restraining order, pt presenting with delusional content-pregnacy, being kidnapped at . Currently homeless and at risk due to delusional thought Plan: Refuses medications at this time Encourage meds, diagnostics Milieu involvement Collateral contact ?Section 7/8 application. 04/04/22: Pt looking to this admission to secure housing. 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 She believes she owns the family home and has legal working on this to help her. Today she asks for relocation assistance. She declines meds, diagnostics and reports she is not in need of psychiatric care, but is here to rest and adjust meds which she refuses. She presents with delusional content, but is not committable. Will discuss with team on 04/05 for referral resources and plan discharge, unless collateral directs us in another way given pts lability hx in community. 04/05/22: Collateral contact, discharge planning. Declines psychiatric treatment (medications) at this time). 04/06/22: Encourage pt to make practical, logical choices. Declines psychiatric treatment (medications) at this time. 04/08/22: Pt has a list of apartments for rent to check into. Tentative discharge 04/13. Continues to refuse resources, treatment, but is not presenting with danger to self or others. Patient educated on: therapeutic strategies Informed Consent: understands Reason for contiued inpatient stay Substantial Risk for: inability to function and rapid decompensation Time Spent With Patient Time: Total time managing care of this patient today 15 minutes.
[2022-04-09 10:03] VITALS: BP 132/75; PULSE 88; RESP 18; TEMP 36.3; O2SAT 95
--- NOTE | 2022-04-09 16:38 | HO.PSYCHPN ---
Subjective Subjective Date of Service: 04/09/22 Reason For Visit: Schizoaffecive disorder, dipolar type Subjective Notes: Conditional Voluntary Healthcare Proxy: No Guardianship: No Medical Problems Affecting Mental Status: No Interim History: Reviewed with pt potential options. She declines again today. Encouraged to give these options thought. Team reports some oriental orthodox preoccupation. [facility] As she had said on 04/08 this was a supported life, however, the level of poverty was difficult to manage. She reports she will not return there again. States she has not started to look for an apartment yet. Asked pt is she would be willing to trial treatment and consider [facility] offers seriously. I don't need treatment, I don't have any mental health issues . Medication Compliance: No Side effects from medications: No Attending Groups: Intermittent Review of Systems Acute medical concerns: No Medical Review of Systems: unchanged Mental Status Exam Mental Status Exam Patient Appearance: Appropriate Patient Orientation: Person, Place and Time Level of Consciousness: Alert Patient Behavior: Talkative, Cooperative and Good Eye Contact Mood Description: Labile and Apprehensive Affect Description: Labile and Apprehensive Patient Cognition Impaired: No Ability to Follow Directions: Good Speech Pattern: Spontaneous Speech, Cofabulation, Rapid and Pressured Memory Description: Remote Impaired and Episodic Impaired Hallucinations: None Delusions: Paranoid Ideation, Grandiose and Present Perceptual Disturbances: Derealization Thought Process: Illogical, Distracted and Goal Oriented Thought Content: positive for Flight of Ideas, positive for Circumstantial, positive for Goal Oriented, positive for Perseveration, positive for Preoccupation, positive for Tangential, positive for Suicidal Ideation (denies) and positive for Homicidal Ideation (denies) Depressive Symptoms: Increased Anxiety, Increased Irritability, Significant Weight Gain and Thoughts of /Suicide (denies) Abnormal Motor Activity Signs and Symptoms: Restlessness Judgement: Poor Diagnostics Vital Signs (24Hr): Vital Signs - 24 hr 04/09/22 10:03 Temperature 97.3 F Pulse Rate 88 Respiratory Rate 18 Blood Pressure 132/75 Pulse Oximetry 95 Oxygen Delivery Method Room Air BMI result Body Mass Index 59.1 Medications Medications Current Medications Acetaminophen (Acetaminophen 325 Mg Tablet) 650 mg PO Q6H PRN PRN Reason: Headache/Pain Mild Scale (1-3) Al Hydroxide/Mg Hydroxide (Magnesium Hydrox/Alum Hydrox 30 Ml Oral.Susp) 30 ml PO Q6H PRN PRN Reason: Heartburn/Nausea Hydroxyzine HCl (Hydroxyzine Hcl 25 Mg Tablet) 25 mg PO Q6H PRN PRN Reason: Anxiety Magnesium Hydroxide (Milk Of Magnesia 30 Ml Oral.Susp) 30 ml PO DAILY PRN PRN Reason: Constipation Olanzapine (Olanzapine Odt 10 Mg Tab.Rapdis) 10 mg TRANSLINGU BID PRN PRN Reason: psychosis, agitation Trazodone HCl (Trazodone Hcl 50 Mg Tablet) 50 mg PO BEDTIME PRN PRN Reason: Insomnia Allergies Allergies Allergy/AdvReac Type Severity Reaction Status Date / Time oxybutynin Allergy Unknown Hallucinati Unverified 04/01/22 11:16 ons tramadol Allergy Unknown Swelling/Hi Verified 04/01/22 11:16 ves tramadol Allergy Unknown edema, Uncoded 04/01/22 11:16 hives, sob Assessment & Plan Assessment & Plan (1) Schizoaffective disorder, bipolar type: Status: Acute Code(s): F25.0 - Schizoaffective disorder, bipolar type Plan 52 yo female, hx of schizoaffective disorder, bipolar type. Off medications for several months, family has an active restraining order, pt presenting with delusional content-pregnacy, being kidnapped at . Currently homeless and at risk due to delusional thought Plan: Refuses medications at this time Encourage meds, diagnostics Milieu involvement Collateral contact ?Section 7/8 application. 04/04/22: Pt looking to this admission to secure housing. When she left [facility] in [place] she stopped meds, discontinued her [facility] worker assignment and ended up needing to leave the family home d/t being threatening and having restraining order filed. She believes she owns the family home and has legal working on this to help her. Today she asks for relocation assistance. She declines meds, diagnostics and reports she is not in need of psychiatric care, but is here to rest and adjust meds which she refuses. She presents with delusional content, but is not committable. Will discuss with team on 04/05 for referral resources and plan discharge, unless collateral directs us in another way given pts lability hx in community. 04/05/22: Collateral contact, discharge planning. Declines psychiatric treatment (medications) at this time). 04/06/22: Encourage pt to make practical, logical choices. Declines psychiatric treatment (medications) at this time. 04/08/22: Pt has a list of apartments for rent to check into. Tentative discharge 04/13. Continues to refuse resources, treatment, but is not presenting with danger to self or others. 04/09/22: Discharge 04/13. Encouraged pt to consider treatment/[facility] housing options vs going to the street. She declines citing not having illness to treat. Patient educated on: therapeutic strategies and other Informed Consent: further education needed Reason for contiued inpatient stay Substantial Risk for: inability to function and rapid decompensation Time Spent With Patient Time: Total time managing care of this patient today 15 minutes.
[2022-04-10 10:16] VITALS: BP 143/75; PULSE 87; RESP 20; TEMP 36.8; O2SAT 98
--- NOTE | 2022-04-10 12:15 | HO.PSYCHPN ---
Subjective Subjective Date of Service: 04/10/22 Reason For Visit: Schizoaffecive disorder, dipolar type Interim History: Patient seen. 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 She remains manic, talkative and pressured. Review of Systems Review of Systems As per HPI Yes all other systems are reviewed and are negative Constitutional: Reports weight gain Eyes: Reports no additional eye complaints Reports system reviewed and no additional complaints, except as documented Cardiovascular: Reports no additional cardiovascular complaints Respiratory: Reports no additional respiratory complaints Gastrointestinal: Reports no additional gastrointestinal complaints Musculoskeletal: Reports no additional musculoskeletal complaints and Reports other (knee pain) Skin/Breast: Reports system reviewed and no additional complaints, except as docu Reports system reviewed and no additional complaints, except as documented, Reports behavioral changes and Reports memory loss Psychiatric: Reports behavioral changes, Reports change in appetite, Reports difficulty concentrating, Reports irritability, Reports memory loss, Reports mood swings, Reports paranoia, Reports homicidal ideation (denies) and Reports suicidal ideation (denies) Endocrine: Reports no additional endocrine complaints Hematologic/Lymphatic: Reports no additional hematologic/lymphatic complaints Allergic/Immunologic: Reports no additional allergic/immunologic complaints Mental Status Exam Mental Status Exam Patient Appearance: Appropriate Patient Orientation: Person, Place and Time Level of Consciousness: Alert Patient Behavior: Talkative, Cooperative and Good Eye Contact Mood Description: Labile and Apprehensive Affect Description: Labile and Apprehensive Patient Cognition Impaired: No Ability to Follow Directions: Good Speech Pattern: Spontaneous Speech, Cofabulation, Rapid and Pressured Memory Description: Remote Impaired and Episodic Impaired Diagnostics Vital Signs (24Hr): Vital Signs - 24 hr 04/10/22 10:16 04/10/22 18:00 Temperature 98.3 F 98.1 F Pulse Rate 87 92 Respiratory Rate 20 16 Blood Pressure 143/75 H 143/72 H Pulse Oximetry 98 97 Oxygen Delivery Method Room Air Room Air BMI result Body Mass Index 59.1 Medications Medications Current Medications Acetaminophen (Acetaminophen 325 Mg Tablet) 650 mg PO Q6H PRN PRN Reason: Headache/Pain Mild Scale (1-3) Al Hydroxide/Mg Hydroxide (Magnesium Hydrox/Alum Hydrox 30 Ml Oral.Susp) 30 ml PO Q6H PRN PRN Reason: Heartburn/Nausea Hydroxyzine HCl (Hydroxyzine Hcl 25 Mg Tablet) 25 mg PO Q6H PRN PRN Reason: Anxiety Magnesium Hydroxide (Milk Of Magnesia 30 Ml Oral.Susp) 30 ml PO DAILY PRN PRN Reason: Constipation Olanzapine (Olanzapine Odt 10 Mg Tab.Rapdis) 10 mg TRANSLINGU BID PRN PRN Reason: psychosis, agitation Trazodone HCl (Trazodone Hcl 50 Mg Tablet) 50 mg PO BEDTIME PRN PRN Reason: Insomnia Allergies Allergies Allergy/AdvReac Type Severity Reaction Status Date / Time oxybutynin Allergy Unknown Hallucinati Unverified 04/01/22 11:16 ons tramadol Allergy Unknown Swelling/Hi Verified 04/01/22 11:16 ves tramadol Allergy Unknown edema, Uncoded 04/01/22 11:16 hives, sob Assessment & Plan Assessment & Plan (1) Schizoaffective disorder, bipolar type: Status: Acute Code(s): F25.0 - Schizoaffective disorder, bipolar type Plan 52 yo female, hx of schizoaffective disorder, bipolar type. Off medications for several months, family has an active restraining order, pt presenting with delusional content-pregnacy, being kidnapped at . Currently homeless and at risk due to delusional thought Plan: Refuses medications at this time Encourage meds, diagnostics Milieu involvement Collateral contact ?Section 7/8 application. 04/04/22: Pt looking to this admission to secure housing. 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 She believes she owns the family home and has legal working on this to help her. Today she asks for relocation assistance. She declines meds, diagnostics and reports she is not in need of psychiatric care, but is here to rest and adjust meds which she refuses. She presents with delusional content, but is not committable. Will discuss with team on 04/05 for referral resources and plan discharge, unless collateral directs us in another way given pts lability hx in community. 04/05/22: Collateral contact, discharge planning. Declines psychiatric treatment (medications) at this time). 04/06/22: Encourage pt to make practical, logical choices. Declines psychiatric treatment (medications) at this time. 04/08/22: Pt has a list of apartments for rent to check into. Tentative discharge 04/13. Continues to refuse resources, treatment, but is not presenting with danger to self or others. 04/09/22: Discharge 04/13. Encouraged pt to consider treatment/[facility] housing options vs going to the street. She declines citing not having illness to treat. 04/10: Continue to encourage medication treatment. Reason for contiued inpatient stay Substantial Risk for: inability to function and rapid decompensation Time Spent With Patient Time: Total time managing care of this patient today ____ minutes.
[2022-04-10 18:00] VITALS: BP 143/72; PULSE 92; RESP 16; TEMP 36.7; O2SAT 97
[2022-04-11 08:20] VITALS: BP 131/87; PULSE 94; TEMP 36.2; O2SAT 97
--- NOTE | 2022-04-11 15:30 | HO.PSYCHPN ---
Subjective Subjective Date of Service: 04/11/22 Reason For Visit: Schizoaffecive disorder, dipolar type Interim History: Patient seen. Ama continues to be grandiose and delusional. She reports she is happy because she believes she now has options regarding her living situation. She believes she can go to [facility] and live in a college. She continues to refuse medications because I am . She complains of difficulty sleeping. She was offered melatonin which she said she would consider. She remains manic, talkative and pressured. Review of Systems Review of Systems As per HPI Yes all other systems are reviewed and are negative Constitutional: Reports weight gain Eyes: Reports no additional eye complaints Reports system reviewed and no additional complaints, except as documented Cardiovascular: Reports no additional cardiovascular complaints Respiratory: Reports no additional respiratory complaints Gastrointestinal: Reports no additional gastrointestinal complaints Musculoskeletal: Reports no additional musculoskeletal complaints and Reports other (knee pain) Skin/Breast: Reports system reviewed and no additional complaints, except as docu Reports system reviewed and no additional complaints, except as documented, Reports behavioral changes and Reports memory loss Psychiatric: Reports behavioral changes, Reports change in appetite, Reports difficulty concentrating, Reports irritability, Reports memory loss, Reports mood swings, Reports paranoia, Reports homicidal ideation (denies) and Reports suicidal ideation (denies) Endocrine: Reports no additional endocrine complaints Hematologic/Lymphatic: Reports no additional hematologic/lymphatic complaints Allergic/Immunologic: Reports no additional allergic/immunologic complaints Mental Status Exam Mental Status Exam Patient Appearance: Appropriate Patient Orientation: Person, Place and Time Level of Consciousness: Alert Patient Behavior: Talkative, Cooperative and Good Eye Contact Mood Description: Euphoric, Labile and Apprehensive Affect Description: Euphoric, Labile and Apprehensive Patient Cognition Impaired: No Ability to Follow Directions: Good Speech Pattern: Spontaneous Speech, Cofabulation, Rapid and Pressured Memory Description: Remote Impaired and Episodic Impaired Diagnostics Vital Signs (24Hr): Vital Signs - 24 hr 04/11/22 08:20 04/11/22 18:00 Temperature 97.1 F 97.6 F Pulse Rate 94 85 Respiratory Rate 16 Blood Pressure 131/87 136/84 Pulse Oximetry 97 97 Oxygen Delivery Method Room Air Room Air BMI result Body Mass Index 59.1 Medications Medications Current Medications Acetaminophen (Acetaminophen 325 Mg Tablet) 650 mg PO Q6H PRN PRN Reason: Headache/Pain Mild Scale (1-3) Al Hydroxide/Mg Hydroxide (Magnesium Hydrox/Alum Hydrox 30 Ml Oral.Susp) 30 ml PO Q6H PRN PRN Reason: Heartburn/Nausea Hydroxyzine HCl (Hydroxyzine Hcl 25 Mg Tablet) 25 mg PO Q6H PRN PRN Reason: Anxiety Magnesium Hydroxide (Milk Of Magnesia 30 Ml Oral.Susp) 30 ml PO DAILY PRN PRN Reason: Constipation Melatonin (Melatonin 3 Mg Tablet) 6 mg PO BEDTIME BRIAN Last Admin: 04/11/22 21:23 Dose: Not Given Olanzapine (Olanzapine Odt 10 Mg Tab.Rapdis) 10 mg TRANSLINGU BID PRN PRN Reason: psychosis, agitation Trazodone HCl (Trazodone Hcl 50 Mg Tablet) 50 mg PO BEDTIME PRN PRN Reason: Insomnia Allergies Allergies Allergy/AdvReac Type Severity Reaction Status Date / Time oxybutynin Allergy Unknown Hallucinati Unverified 04/01/22 11:16 ons tramadol Allergy Unknown Swelling/Hi Verified 04/01/22 11:16 ves tramadol Allergy Unknown edema, Uncoded 04/01/22 11:16 hives, sob Assessment & Plan Assessment & Plan (1) Schizoaffective disorder, bipolar type: Status: Acute Code(s): F25.0 - Schizoaffective disorder, bipolar type Plan 52 yo female, hx of schizoaffective disorder, bipolar type. Off medications for several months, family has an active restraining order, pt presenting with delusional content-pregnacy, being kidnapped at . Currently homeless and at risk due to delusional thought Plan: Refuses medications at this time Encourage meds, diagnostics Milieu involvement Collateral contact ?Section 7/8 application. 04/04/22: Pt looking to this admission to secure housing. 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 She believes she owns the family home and has legal working on this to help her. Today she asks for relocation assistance. She declines meds, diagnostics and reports she is not in need of psychiatric care, but is here to rest and adjust meds which she refuses. She presents with delusional content, but is not committable. Will discuss with team on 04/05 for referral resources and plan discharge, unless collateral directs us in another way given pts lability hx in community. 04/05/22: Collateral contact, discharge planning. Declines psychiatric treatment (medications) at this time). 04/06/22: Encourage pt to make practical, logical choices. Declines psychiatric treatment (medications) at this time. 04/08/22: Pt has a list of apartments for rent to check into. Tentative discharge 04/13. Continues to refuse resources, treatment, but is not presenting with danger to self or others. 04/09/22: Discharge 04/13. Encouraged pt to consider treatment/[facility] housing options vs going to the street. She declines citing not having illness to treat. 04/10: Continue to encourage medication treatment. 04/11: Will consider melatonin. Ordered. Continue tx plan. Reason for contiued inpatient stay Substantial Risk for: inability to function and rapid decompensation Time Spent With Patient Time: Total time managing care of this patient today ____ minutes.
[2022-04-11 18:00] VITALS: BP 136/84; PULSE 85; RESP 16; TEMP 36.4; O2SAT 97
[2022-04-12 08:24] VITALS: BP 132/73; PULSE 89; RESP 16; TEMP 36.5; O2SAT 99
--- NOTE | 2022-04-12 11:44 | P.PNPSI_ITS ---
Subjective Subjective Date of Service: 04/12/22 Reason For Visit: Schizoaffecive disorder, dipolar type Subjective Notes: Conditional Voluntary Healthcare Proxy: No Guardianship: No Medical Problems Affecting Mental Status: No Interim History: Met with pt and Mey RAMEY. Pt remains delusional. Discussed with pt medical opinion that she is not , not connected for housing/benefits, and that illness based delusional sx have become her reality base. She disagrees, was not agitated by confrontation, but incorporated it, and dismissed it. Discussed pending discharge for 04/13. Asked pt to reconsider [facility] options for her. She declined and explained her disagreement with [facility] and their processes. Pt will plan to discharge tomorrow. She has no specific plan and will not accept treatment or offered interventions. Medication Compliance: No Side effects from medications: No Attending Groups: Intermittent Review of Systems Acute medical concerns: No Reports knee is improved. Continues to believe she is Medical Review of Systems: unchanged Mental Status Exam Mental Status Exam Patient Appearance: Appropriate Patient Orientation: Person, Place, Time and Situation Level of Consciousness: Alert Patient Behavior: Talkative, Resistive to Care, Avoidant, Distractible and Good Eye Contact Mood Description: Constricted Affect Description: Constricted Patient Cognition Impaired: No Ability to Follow Directions: Good Speech Pattern: Spontaneous Speech Memory Description: Episodic Impaired Hallucinations: None Delusions: Present Perceptual Disturbances: Derealization Thought Process: Goal Oriented and Evasive Thought Content: positive for Circumstantial, positive for Goal Oriented and positive for Evasive Judgement: Good Diagnostics Vital Signs (24Hr): Vital Signs - 24 hr 04/11/22 18:00 04/12/22 08:24 Temperature 97.6 F 97.7 F Pulse Rate 85 89 Respiratory Rate 16 16 Blood Pressure 136/84 132/73 Pulse Oximetry 97 99 Oxygen Delivery Method Room Air Room Air BMI result Body Mass Index 59.1 Medications Medications Current Medications Acetaminophen (Acetaminophen 325 Mg Tablet) 650 mg PO Q6H PRN PRN Reason: Headache/Pain Mild Scale (1-3) Al Hydroxide/Mg Hydroxide (Magnesium Hydrox/Alum Hydrox 30 Ml Oral.Susp) 30 ml PO Q6H PRN PRN Reason: Heartburn/Nausea Hydroxyzine HCl (Hydroxyzine Hcl 25 Mg Tablet) 25 mg PO Q6H PRN PRN Reason: Anxiety Magnesium Hydroxide (Milk Of Magnesia 30 Ml Oral.Susp) 30 ml PO DAILY PRN PRN Reason: Constipation Melatonin (Melatonin 3 Mg Tablet) 6 mg PO BEDTIME BRIAN Last Admin: 04/11/22 21:23 Dose: Not Given Olanzapine (Olanzapine Odt 10 Mg Tab.Rapdis) 10 mg TRANSLINGU BID PRN PRN Reason: psychosis, agitation Trazodone HCl (Trazodone Hcl 50 Mg Tablet) 50 mg PO BEDTIME PRN PRN Reason: Insomnia Allergies Allergies Allergy/AdvReac Type Severity Reaction Status Date / Time oxybutynin Allergy Unknown Hallucinati Unverified 04/01/22 11:16 ons tramadol Allergy Unknown Swelling/Hi Verified 04/01/22 11:16 ves tramadol Allergy Unknown edema, Uncoded 04/01/22 11:16 hives, sob Assessment & Plan Assessment & Plan (1) Schizoaffective disorder, bipolar type: Status: Acute Code(s): F25.0 - Schizoaffective disorder, bipolar type Plan 52 yo female, hx of schizoaffective disorder, bipolar type. Off medications for several months, family has an active restraining order, pt presenting with delusional content-pregnacy, being kidnapped at . Currently homeless and at risk due to delusional thought Plan: Refuses medications at this time Encourage meds, diagnostics Milieu involvement Collateral contact ?Section 7/8 application. 04/04/22: Pt looking to this admission to secure housing. 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 She believes she owns the family home and has legal working on this to help her. Today she asks for relocation assistance. She declines meds, diagnostics and reports she is not in need of psychiatric care, but is here to rest and adjust meds which she refuses. She presents with delusional content, but is not committable. Will discuss with team on 04/05 for referral resources and plan discharge, unless collateral directs us in another way given pts lability hx in community. 04/05/22: Collateral contact, discharge planning. Declines psychiatric treatment (medications) at this time). 04/06/22: Encourage pt to make practical, logical choices. Declines psychiatric treatment (medications) at this time. 04/08/22: Pt has a list of apartments for rent to check into. Tentative discharge 04/13. Continues to refuse resources, treatment, but is not presenting with danger to self or others. 04/09/22: Discharge 04/13. Encouraged pt to consider treatment/[facility] housing options vs going to the street. She declines citing not having illness to treat. 04/10: Continue to encourage medication treatment. 04/11: Will consider melatonin. Ordered. Continue tx plan. 04/12/22: Discharge 04/13. Pt declines all interventions at this time. Patient educated on: therapeutic strategies Informed Consent: understands Reason for contiued inpatient stay Substantial Risk for: stable for discharge Time Spent With Patient Time: Total time managing care of this patient today 30 minutes.
[2022-04-12 18:00] VITALS: BP 139/65; PULSE 89; TEMP 36.6
[2022-04-13 09:53] VITALS: BP 143/81; PULSE 79; RESP 16; TEMP 36.5; O2SAT 98
--- NOTE | 2022-04-13 10:41 | PM.PSYDC ---
DS: Providers Provider Date of Service: 04/13/22 Date of admission: 04/02/22 14:40 Date of discharge: 04/13/22 Primary care physician: Unknown Physician Admitting clinician: Azul Nolan Attending physician on admission: Josh Moctezuma Attending physician on discharge: Josh Moctezuma DS: Diagnosis Discharge Diagnosis (1) Schizoaffective disorder, bipolar type: Status: Acute DS: Medications Discharge Medications Home Medications: Home Medications Medication Instructions Recorded Confirmed No Known Home Meds 04/02/22 04/02/22 Mental Status Exam Mental Status Exam Patient Appearance: Appropriate Patient Orientation: Person, Place, Time and Situation Level of Consciousness: Alert Patient Behavior: Talkative, Resistive to Care, Avoidant, Distractible and Good Eye Contact Mood Description: Constricted Affect Description: Constricted Patient Cognition Impaired: No Ability to Follow Directions: Good Speech Pattern: Spontaneous Speech Memory Description: Episodic Impaired Hallucinations: None Delusions: Present Perceptual Disturbances: Derealization Thought Process: Goal Oriented and Evasive Thought Content: positive for Circumstantial, positive for Goal Oriented and positive for Evasive Judgement: Good DS: Summary Hospital Course Hospital Course: Admission to adult psychiatry for exacerbation of symptoms of schizoaffective disorder, bipolar type, increase in delusions and reported sx of leg pain. Pt, on admission informed team she was . This was found not to be accurate as diagnostic results and ultrasound indicated no . Pt also informed team that her leg was injured-this resolved during admission. Pt refused all treatment and medications during her admission, she refused [facility] offers for respite and emergent housing and is, upon discharge not found to be committable. Any option offered to pt she declined. She was discharged outright and is welcome to return at any time if we may be of assistance. Time spent discussing smoking cessation with patient: 3 to 10 minutes Status at Discharge Functional status at discharge: independent ambulation Overall status at discharge: patient is back to baseline Time Spent with Patient Time attestation: Total time managing care of this patient today 35 minutes. Time spent: Greater than 30 minutes Discharge Plan Discharge Anticipated Discharge Date/Time: 04/13/22 12:00 Patient Disposition: Xfer Other Discharge Diagnosis: Schizoaffective Disorder, Bipolar Type Referrals: [facility] Investment Underwriter: Maeve Ellis [Other] - 04/14/22 1:00 pm (Go to the [facility] office to see Maeve tomorrow, 04/14 at 1pm and call her as needed ) Intermediate: [facility] [Other] - 1 Week Physician,Unknown J [Primary Care Provider] - 1 Week (patient refused appt.) Discharge Medications: No Action No Known Home Meds Discharge Orders: Discharge Order (Routine); Ordered 04/13/22 Ordered By: Azul Nolan Diet: Advance to usual diet Activity on Discharge: As tolerated Stand Alone Forms: Patient Portal Discharge page, Community Support Care Plan Goals: Maintain mood and safe behavior Practice coping skills Health Concerns: Stable mood and behavior Plan of Treatment: Viri refuses all interventions at this time Assessment: Pt interviewed prior to discharge and found to be fully oriented, without any SI or HI and with fixed delusions. She has insight and demonstrates good judgment in terms of wanting to find housing and re-establish her life. She denies any symptoms of illness, need for medication or any treatment interventions. She is not in imminent risk of harm to self or others and has safety plans verbalized should she get into a difficult situation. She has been observed closely by nursing staff throughout admission. She has not engaged in any behaviors that suggest dangerousness to self or others and has demonstrated appropriate behaviors and impulse control. She has declined all offers of intervention during this admission and upon discharge, wanting to pursue her goals in her own way. Discharge Date/Time: 04/13/22 15:05
== END 2022-04-13 15:05 | disposition other institution (70) | DRG 885 ==
LOC: HO.ED 04-02 14:16 → HO.PM5 04-02 14:44
PROVIDERS: Admitting Provider Psychiatry & Neurology Psychiatry; Emergency Provider Emergency Medicine; Visit Provider Clinical Nurse Specialist Psychiatric/Mental Health, Adult
DX: F25.0 Schizoaffective disorder, bipolar type (principal); Z20.822 Contact with and (suspected) exposure to COVID-19; Z59.02 Unsheltered homelessness; Z87.891 Personal history of nicotine dependence
CPT/HCPCS: 80307; 81001; 81025; 87635; 93005; 99285; S9485

== ENCOUNTER 2022-04-14 00:23 | Emergency (ER) | payer OTHER, SELFPAY ==
[2022-04-14 00:27] VITALS: PULSE 88
[2022-04-14 00:33] VITALS: BP 147/83; PULSE 87; RESP 18; TEMP 36.7; O2SAT 98; BMI 60.8
--- NOTE | 2022-04-14 00:49 | PC.NURSE ---
pt has been walking in the er, sitting in bed now eating a full half gallon of ice cream. no s/s of distress.
--- NOTE | 2022-04-14 02:06 | ED.GENADULT ---
HPI - General Adult General Chief complaint: General Medical Stated complaint: left abd pain Time Seen by Provider: 04/14/22 00:59 Source: patient Mode of arrival: EMS Limitations: no limitations History of Present Illness HPI narrative: . Patient with Schizoaffective disorder just discharged from upstairs supposed to go to residential plate does want to go there complaining of left knee pain after arrival in the ER patient been eating ice cream walking with without any significant discomfort no recent trauma Related Data Home Medications Medication Instructions Recorded Confirmed No Known Home Meds 04/02/22 04/02/22 Allergies Allergy/AdvReac Type Severity Reaction Status Date / Time oxybutynin Allergy Unknown Hallucinati Unverified 04/01/22 11:16 ons tramadol Allergy Unknown Swelling/Hi Verified 04/01/22 11:16 ves tramadol Allergy Unknown edema, Uncoded 04/01/22 11:16 hives, sob Review of Systems Review of Systems: Yes all other systems are reviewed and are negative PMFSH Past Medical History Medical History Delusions Paranoid Social History Social History Household Members: None Household Members Other:: 3 Housing: Homeless Do you presently have visiting nurse or other home services: No Unable to assess alcohol history related to: Refusing to respond Alcohol intake: never Patient Tobacco Use Status: Former Tobacco user Smoked in Last 30 Days: No Second Hand Smoke Exposure: No Use of substances other than those prescribed or required for medical reasons: No Substance Use Type: Unknown Advance Directives: No Advance Directives Information Provided: No service: No Sexual orientation: Straight/Heterosexual Physical Exam ED Vital Signs: Vital Signs - 24 hr 04/14/22 00:33 Temperature 98.1 F Pulse Rate 87 Respiratory Rate 18 Blood Pressure 147/83 H Pulse Oximetry 98 Oxygen Delivery Method Room Air BMI result Body Mass Index 60.8 Appearance: Alert. Oriented X3. No acute distress. Obese stable mood Eyes: PERRLA, No Nystagmus ENT: Pharynx normal. Oral Mucosa moist Neck: Normal inspection. Neck supple. CVS: Normal heart rate and rhythm. Pulses normal. Respiratory: No respiratory distress. Equal air entry bilateral, no wheezing/rales/rhonchi Abdomen: Soft and nontender. Bowel sounds are present, no mass palpable, no CVA tenderness Skin: Skin warm and dry. Normal skin color. Normal skin turgor. Extremities: No lower extremity edema. No calf tenderness left knee diffuse tenderness no significant effusion good range of movement Neuro: Oriented X 3. No motor deficit. Medical Decision Making Medical Decision Making MDM Narrative: Patient with no medical issues just discharged from psych floor yesterday came to the ER for nonspecific knee pain advised to follow-up with therapist/psych and to continue her medication Discharge Plan Discharge Clinical Impression: Schizoaffective disorder, bipolar type, Chronic knee pain Patient Disposition: Home, Self-Care Instructions: Schizoaffective Disorder (ED), Knee Pain (ED) Additional Instructions: Follow-up with PCP and therapist Prescriptions: No Action No Known Home Meds Interventions: ED Discharge Assessment Last Done: 04/14/22 02:19 Discharge Date/Time: 04/14/22 02:21
== END 2022-04-14 02:21 | disposition home or self-care (01) ==
PROVIDERS: Emergency Provider Internal Medicine
DX: F25.9 Schizoaffective disorder, unspecified (principal); F31.9 Bipolar disorder, unspecified; M25.562 Pain in left knee; Z87.891 Personal history of nicotine dependence; Z79.899 Other long term (current) drug therapy
CPT/HCPCS: 99282; 99284

== ENCOUNTER 2022-04-17 08:07 | Emergency (ER) | payer OTHER, SELFPAY ==
[2022-04-17 08:19] VITALS: RESP 18; BMI 85.0
--- NOTE | 2022-04-17 08:27 | PC.NURSE ---
Provider at bedside. Refusing all work up at this time. Plan of care: to provide warm area to rest for few hours. Plan for d/c at 1500.
[2022-04-17 10:00] VITALS: RESP 16
--- NOTE | 2022-04-17 10:49 | ED.PSYCH ---
HPI - Psych General Chief Complaint: Psychiatric Symptoms Stated Complaint: From residential, gen weak per EMS Time Seen by Provider: 04/17/22 08:15 Source: patient Mode of arrival: ambulatory Limitations: no limitations History of Present Illness HPI Narrative: 52-year-old female with a past medical history of diabetes, schizoaffective disorder, bipolar type, delusions, paranoia who is currently homeless presenting to the ER with complaints of feeling too weak to walk into cold to be outside. It is-8 outside with the wind it is -30. She reports that she was at the residential overnight and was very cold. She reports that she had to leave the residential and due to it being very cold she came here. She reports that she just wants to rest for a little while. She denies any SI or HI or increased anxiety or depression or thoughts of self-injury. She denies any drug or alcohol usage. Reports that she has protestant where we cannot draw her blood in that is against the wall therefore she is refusing all blood, EKG and urine. She denies any complaints at this time including fevers, dizziness, sore throat, cough, chest pain or shortness of breath, nausea/vomiting/diarrhea, abdominal pain or any other symptoms complaints or concerns at this time. complaint: anxiety Onset (ago): day(s) Duration: constant History of same: Yes Relieving factors: none Exacerbating factors: other (Being outside in the cold when it is in the negatives) Context: significant life stressor (Homelessness) Associated psychiatric symptoms: none Associated symptoms: denies other symptoms Treatments prior to arrival: none Related Data Home Medications Medication Instructions Recorded Confirmed No Known Home Meds 04/02/22 04/17/22 Allergies Allergy/AdvReac Type Severity Reaction Status Date / Time oxybutynin Allergy Unknown Hallucinati Unverified 04/01/22 11:16 ons tramadol Allergy Unknown Swelling/Hi Verified 04/01/22 11:16 ves tramadol Allergy Unknown edema, Uncoded 04/01/22 11:16 hives, sob Review of Systems Review of Systems: Constitutional : No Fever, No Chills ENT/Mouth : No Ear Pain, No Nasal Congestion, No sore throat Eyes: No Eye Pain, No Swelling, No Redness Cardiovascular : No Chest Pain, No SOB Respiratory : No Cough, No Sputum, No Dyspnea Gastrointestinal : No ingestions, No Nausea, No Vomiting, No Diarrhea, No Hematochezia, No Melena Genitourinary : No Dysuria, No Urinary Frequency, No Hematuria Musculoskeletal : No Myalgias Skin : No Skin Lesions, No rash Neuro : + general Weakness, No Numbness, No Paresthesias, No Dizziness, No Headache, No focal weakness Psych : + Anxiety, No Depression, No SI, No thoughts of self injury, No HI, No AVH, Heme/Lymph: No Lymphadenopathy Endocrine : No Polyuria, No Polydipsia Yes all other systems are reviewed and are negative [facility] Past Medical History Attestation statement: The following information was validated with the patient. Source: old records reviewed and nursing notes reviewed Medical History Delusions Paranoid Social History Social History Household Members: None Household Members Other:: 3 Housing: Homeless Do you presently have visiting nurse or other home services: No Unable to assess alcohol history related to: Refusing to respond Alcohol intake: unknown Patient Tobacco Use Status: Former Tobacco user Second Hand Smoke Exposure: No Use of substances other than those prescribed or required for medical reasons: Unknown Substance Use Type: Unknown Advance Directives: No Advance Directives Information Provided: No Healthcare Proxy: No Guardian: No Patient : No service: No Sexual orientation: Straight/Heterosexual Physical Exam Vital Signs: Vital Signs: Last Vital Signs Resp 20 04/17/22 14:00 BMI result Body Mass Index 85.0 Appearance: Alert. Oriented X3. No acute distress. Head: Normal external exam. Normocephalic. Atraumatic. Eyes: PERRLA. EOMI. Conjunctiva and sclera normal. Eyelids normal. ENT: EAC normal. TM's Normal. Pharynx normal. Uvula midline. Moist mucous membranes. No trismus noted. No drooling noted. No muffled voice noted. Neck: Normal inspection. Neck supple. FROM. No adenopathy. Thyroid Normal. No meningeal signs. No neck mass noted. CVS: Normal heart rate and rhythm. Heart sound normal. No murmurs noted. Pulses normal throughout. Respiratory: No respiratory distress. Painless inspiration. Breath sounds normal. No wheezes/rales/rhonchi noted. Chest nontender. No accessory muscle usage noted or decreased air movement noted. Abdomen: Soft and nontender. Bowel sounds normal in all 4 quadrants. No distention noted. No organomegaly noted. No visible injury noted. Back: No CVA tenderness. Full range of motion noted. Skin: Skin warm and dry. Normal skin color. Normal skin turgor. No rashes/lesions/lacerations noted. Extremities: No lower extremity edema. Extremities exhibit normal range of motion. Extremities nontender. Neuro: Oriented X 3. No motor deficit. No sensory deficit. Reflexes normal. CN's II-XII intact bilaterally? Psych: Appearance grossly normal, although disshelved, mental status normal, speech and movement normal. Patient is uncooperative. Course Course Course Narrative: 9:20am - 52-year-old female with a past medical history of diabetes, schizoaffective disorder, bipolar type, delusions, paranoia who is currently homeless presenting to the ER with complaints of feeling too weak to walk into cold to be outside. It is-8 outside with the wind it is -30. She reports that she was at the residential overnight and was very cold. She reports that she had to leave the residential and due to it being very cold she came here. She reports that she just wants to rest for a little while. She denies any SI or HI or increased anxiety or depression or thoughts of self-injury. She denies any drug or alcohol usage. Reports that she has protestant where we cannot draw her blood in that is against the law therefore she is refusing all blood, EKG and urine. At this time due to patient reporting it is against her protestant and she is refusing all blood draws an EKGs and urine will allow her to rest. On exam she is alert oriented. Lungs clear to auscultation. CV RRR. Abdomen is soft and nontender. Will continue to monitor until patient is ready to be discharged she does not have any SI or HI or auditory visual hallucinations therefore she will be safe to be discharged back to the homeless residential. Will continue to monitor. Reevaluation(s) Reevaluation #1: Pt is refusing to be placed in a lift to go back to a residential she reports that she feels like she has to go long-term care. Although she reports it is against her protestant for blood draws. We had to get security involved. She is now agreeable to a COVID swab and a urine although still refusing a blood draw. She reports that she will participate in physical therapy to evaluate if she needs short-term rehab versus long-term care. Will continue to monitor until physical therapy can evaluate the patient. She was cleared by the care team she denies any SI or HI and there are no auditory visual hallucination or thoughts of self injury at this time. At this time will involve physical therapy and Case Management for further evaluation treatment. Time: 14:15 Reevaluation #2: UA revealed 1000+ glucose therefore waiting POC. Also revealed leukocytes and 6-10 epithelial cells may be a dirty catch will wait for urine culture. Patient negative for . Patient negative for all drugs. Patient negative for COVID. Patient awaiting physical therapy evaluation and Case Management for further evaluation treatment. Will continue to monitor. Time: 16:57 Medical Decision Making Lab Data Labs: Lab Results 04/17/22 04/17/22 04/17/22 Range/Units 14:30 14:49 14:49 Urine Color Yellow Urine Appearance Turbid Urine pH 8.0 (5.0-9.0) Ur Specific [place] 1.025 (1.005-1.025) Urine Protein Negative (Neg-Trace) mg/dL Urine Glucose (UA) >=1000 H (Negative) mg/dL Urine Ketones Negative (Negative) mg/dL Urine Blood Negative (Negative) Urine Nitrite Negative (Negative) Ur Leukocyte Esterase Moderate (2+) H (Negative) Urine RBC 0-2 (0-2) /HPF Urine WBC 11-20 H (0-5) /HPF Ur Squamous Epith Cells 6-10 (0-2) /HPF Urine Bacteria 1+ (None Seen) Hyaline Casts 0-2 (0-2) /LPF Urine Test NEGATIVE (NEGATIVE) Urine Opiates Screen (Not Detect) Urine Fentanyl Screen (Not Detect) Ur Barbiturates Screen (Not Detect) Ur Phencyclidine Scrn (Not Detect) Ur Amphetamines Screen (Not Detect) U Benzodiazepines Scrn (Not Detect) Urine Cocaine Screen (Not Detect) U Marijuana (THC) Screen (Not Detect) COVID-19 (ROBYN) Negative (Negative) COVID-19 Clin Com See Note 04/17/22 Range/Units 14:49 Urine Color Urine Appearance Urine pH (5.0-9.0) Ur Specific [place] (1.005-1.025) Urine Protein (Neg-Trace) mg/dL Urine Glucose (UA) (Negative) mg/dL Urine Ketones (Negative) mg/dL Urine Blood (Negative) Urine Nitrite (Negative) Ur Leukocyte Esterase (Negative) Urine RBC (0-2) /HPF Urine WBC (0-5) /HPF Ur Squamous Epith Cells (0-2) /HPF Urine Bacteria (None Seen) Hyaline Casts (0-2) /LPF Urine Test (NEGATIVE) Urine Opiates Screen Not Detected (Not Detect) Urine Fentanyl Screen Not Detected (Not Detect) Ur Barbiturates Screen Not Detected (Not Detect) Ur Phencyclidine Scrn Not Detected (Not Detect) Ur Amphetamines Screen Not Detected (Not Detect) U Benzodiazepines Scrn Not Detected (Not Detect) Urine Cocaine Screen Not Detected (Not Detect) U Marijuana (THC) Screen Not Detected (Not Detect) COVID-19 (ROBYN) (Negative) COVID-19 Clin Com External Record Review External record reviewed: Inpatient record, Office record, Outpatient record, Prior outpatient labs, Prior outpatient radiology, Primary care record and Outside ED record Chronic Conditions Patient?s care impacted by: Diabetes Social Determinants Patient?s care significantly limited by Social Determinants of Health including: Inadequate housing, Unemployment and Other Social Determinant of Health Discharge Plan Discharge Clinical Impression: Anxiety, General weakness Patient Disposition: Still a Patient Prescriptions: No Action No Known Home Meds Interventions: [place]-Suicide Risk Severity Scale Last Done: 04/17/22 14:01
--- NOTE | 2022-04-17 13:14 | PC.NURSE ---
Pt requesting nursing staff to bedside. Pt walked w/o difficulty from bed to doorway reports knee being dislocated. Both left and right knee intact and atraumatic. Pt requesting retirement placement. Refusing VS/labs/UA and EKG at this time. Denies SI/HI/AH/VH. Pt informed of 1500 d/c. Per pt a doctor with bald head/glasses/and white boone told her she could stay as long as she wants indefinitely. pt informed that no provider with that description is on staff at ED at this time and that all patients are on video recording along with documentation in [facility] via sitter sheet. Pt has not had any visitors since LISA dias and Yessy dias. Shannon GONZALEZ notified. Will come to bedside and reassess.
--- NOTE | 2022-04-17 13:26 | PC.NURSE ---
Provider at bedside for reassessment regarding concerns.
--- NOTE | 2022-04-17 13:33 | PC.NURSE ---
Pt continues to refuse all interventions and assessment regarding interventions/ bloodwork/ekg. Pt verbally abusive to provider. Continues to refuse assistance and assessment. It's your fucking job to help me. I have yazdanism rights to be here Per pt I can't walk in this multiverse- this timeline .
--- NOTE | 2022-04-17 13:59 | PC.NURSE ---
Cleared by Care team for psych. Per freddy VELASQUEZ CM will be contacted for options.
[2022-04-17 14:00] VITALS: RESP 20
--- NOTE | 2022-04-17 14:11 | PC.NURSE ---
Per CM-Minimum covid swab is needed. Provider at bedside to provide education regarding PT eval. Pt needing much coaxing to participate in PT.
--- NOTE | 2022-04-17 14:39 | PC.NURSE ---
Pt given snack. Sitting on edge of bed unassisted. Covid swab obtained.
--- NOTE | 2022-04-17 14:40 | PC.NURSE ---
Pt able to walk without assistance from [employer] tech to bathroom. Gait steady and slow. Intermittently liming alternating between left and right leg. UA obtained.
[2022-04-17 14:56] LABS: COVID-19 Test Negative (Negative); IDNOW Serial# 6674DD1D
[2022-04-17 15:10] LABS: Appearance Urine Turbid; Color Urine Yellow; Glucose Urine UA >=1000 mg/dL (Negative); Leukocyte Esterase Urine Moderate (2+) (Negative); Nitrite Urine Negative (Negative); Specific Gravity - Urine 1.025 (1.005-1.025); UMIC TRIGGER UACC YES; Urine Blood Negative (Negative); Urine Ketones Negative (Negative); Urine Protein Negative (Neg-Trace)
[2022-04-17 15:14] LABS: Bacteria Urine 1+ (None Seen); Hyaline Casts Urine 0-2 /LPF (0-2); RBC Urine 0-2 /HPF (0-2); UACC Culture Trigger YES
[2022-04-17 15:17] LABS: Amphetamine Screen Urine Not Detected (Not Detect); Barbiturates, Urine Not Detected (Not Detect); Benzodiazepines Screen Urine Not Detected (Not Detect); Cannabinoid Screen Urine Not Detected (Not Detect); Cocaine Screen Urine Not Detected (Not Detect); Fentanyl, urine Not Detected (Not Detect); Opiate Screen Urine Not Detected (Not Detect); Phencyclidine Screen Urine Not Detected (Not Detect)
[2022-04-17 15:23] LABS: UPreg QC Valid YES; Urine Pregnancy NEGATIVE (NEGATIVE)
--- NOTE | 2022-04-17 18:09 | PC.NURSE ---
Pt is now up out of bed, ambulating with steady gait to bathroom.
--- NOTE | 2022-04-17 18:38 | PC.NURSE ---
Pt continues to refuse bgl POC>
[2022-04-18 03:05] VITALS: BP 105/54; PULSE 87; RESP 17; TEMP 37.1; O2SAT 95
--- NOTE | 2022-04-18 03:06 | MHC.EDTECH ---
t/w attempted to obtain a POC from pt at which time she stated it is against her jain. and only will offer urine or hair for samples. RN AWARE.
--- NOTE | 2022-04-18 05:38 | PC.NURSE ---
Patient slept though the night, no distress observed/reported, behavior non concerning, refusing her blood draws including POC on sikh ground, patient is referred to case management by care team, awaiting PT consult today, VSS, patient is currently not on any maintenance medication, will continue to monitor.
--- NOTE | 2022-04-18 10:56 | PC.NURSE ---
Ambulating around unit w/ wide steady gait. Showering w/o assistance. Able to preform all ADLs.
--- NOTE | 2022-04-18 11:12 | MHC.CM.ED ---
Received case management consult from Shannon GONZALEZ. Patient came to the ER from the [facility] due to weakness. Patient was apparently upset that she had to leave during the day. Patient is refusing labs and work up. Patient has a long standing mental health history. Physical therapy eval is pending. Patient has been witnessed ambulating around the pod. Anticipate short term rehab will not be necessary. Patient is active with [facility]. [facility] will have to be contacted during business hours on Tuesday about any current services that patient is receiving. Covid swab is negative. Referral broadcasted within 50 miles to all facilities contracted with [facility] for possible longterm care. However, anticipate patient will be difficult to place due to behaviors. Continue to monitor for d/c needs.
[2022-04-18 14:00] VITALS: RESP 18
--- NOTE | 2022-04-18 14:03 | PC.NURSE ---
Report given to Kelsey in [place].
[2022-04-18 15:13] VITALS: BP 119/54; PULSE 85; RESP 20; O2SAT 95
--- NOTE | 2022-04-18 15:18 | PC.NURSE ---
MD made aware of pts urine >1,000 glucose and elevated WBC and leukocytes.
[2022-04-18 15:37] LABS: Glucose, Whole Blood 350 mg/dL (60-115)
--- NOTE | 2022-04-18 17:40 | PC.NURSE ---
Pt ambulated to and from restroom independently with steady gait.
--- NOTE | 2022-04-18 19:35 | PC.NURSE ---
patient ambulatory independently to and from bathroom. patient provided with toothbrush and toothpaste per request. pt in no apparent distress, will continue to monitor
--- NOTE | 2022-04-18 21:16 | PC.NURSE ---
patient very insistent that she will not take any medications, will not give any blood, will not be poked to get her blood sugars taken due to her mormonism. patient having very lengthy conversation about how she is a vegan, she is healthy, her sugars are not of concern, and that she has a baby on the way. patient states she is only here because she has been very tired, has leg weakness, and was told to leave the fdc. patient ambulatory independently, is in no apparent distress. patient made aware the risks and harms of not controlling blood sugars, etc. verbalizes an understanding but is in denial that she is a diabetic. at this time refusing metformin, point of care, and vital signs. will continue to monitor.
--- NOTE | 2022-04-18 21:21 | MHC.EDTECH ---
Pt refused POC, and vitals, states its against her mosque. Kelsey Ball is aware. SG
[2022-04-19 06:16] VITALS: RESP 18
--- NOTE | 2022-04-19 09:13 | MHC.CM.PN ---
PT AWAITING SNF PLACEMENT CURRENTLY NO BED OFFERS REFERRAL UPDATED AND EXPANDED 112 REFERRALS NOW MADE
[2022-04-19 09:29] VITALS: BP 91/38; PULSE 84; RESP 18; O2SAT 95
--- NOTE | 2022-04-19 12:10 | PC.NURSE ---
ASSUMED CARE OF THIS PT AT 0700. PT REFUSED POC AND METFORMIN I DON'T NEED THAT TELL THEM TO DEACTIVATE THAT PILL . AMBULATED TO BATHROOM AND SHOWERED. REQUESTED SNACK, SNACK GIVEN.
--- NOTE | 2022-04-19 14:00 | PC.NURSE ---
PHYSICAL THERAPIST AT PT'S BEDSIDE.
[2022-04-19 14:46] VITALS: BP 141/81; PULSE 76; RESP 16; TEMP 37; O2SAT 96
[2022-04-19 16:09] VITALS: BP 141/81; PULSE 76; O2SAT 96
--- NOTE | 2022-04-19 17:50 | MHC.CM.ED ---
Addendum entered by May Christopher 04/19/22 18:01: PT recommended psych consult. Provider text to psych. Awaiting imput from instructor nurse. . Pt will stay overnight and probably d/c to residential in the morning. CM following for d/c needs. Original Note: CARE TEAM consult recommends no inpatient psych admission at this time. Pt is at baseline. PT does not recommend STR. Pt ambulates independently. Will discuss discharge with provider.
[2022-04-19 20:24] VITALS: BP 137/50; PULSE 87; RESP 17; TEMP 36.4; O2SAT 95
--- NOTE | 2022-04-19 21:18 | PC.NURSE ---
Pt refused to complete any nursing interventions Pt refused to POC check and V/S. Pt refused to take her medication due to pt states, Its against my protestant.
[2022-04-20 06:22] VITALS: RESP 18
--- NOTE | 2022-04-20 06:26 | PC.NURSE ---
Pt continues refusing interventions. Pt is a/ox 4, pt is independent with ADLs/IADLS.
[2022-04-20 07:48] VITALS: BP 162/67; PULSE 82; RESP 18; TEMP 36.4; O2SAT 92
--- NOTE | 2022-04-20 09:30 | MHC.CM.ED ---
Addendum entered by Nickie Bear 04/20/22 12:29: Received notification that [facility] will not see patient because Care Team already assessed patient. Met with patient to explain she would be discharged. List of shelters provided. Also explained no jail placement could be found at alf facility. Patient stated she wasn't interested in placement. She was interested in finding an apartment. T/W explained [facility] would not be able to assist with this. Patient stated she can't return to the [facility] because of my work with the [facility]. T/W explained patient would be discharged today. Telephone would be provided for patient to call for skilled nursing availability. Betsy GONZALEZ aware. Sally Tavares CM director aware. Continue to montior for d/c needs. Original Note: Patient remains in ER overflow. Psych consult ordered and pending. T/W spoke with Staci. [facility]le will be consulting on patient today. Continue to monitor for d/c needs.
--- NOTE | 2022-04-20 12:36 | MHC.CM.ED ---
T/W spoke with [facility] in regards to patient. Patient was d[facility]c'd from [facility] to [facility]ther on 04/15. Patient was looking for permanent residency and refused to enter fdc. Patient returned to fdc on 04/16 and was sent to [facility] on 04/17. Patient was a conditional admission due to the cold weather. Patient is not welcomed back at the fdc at this time because they are unable to manage her mental health and medical issues.
--- NOTE | 2022-04-20 18:09 | MHC.CM.ED ---
Triage nurse spoke with CM at 1645 regarding this patient in the waiting room, who states she cannot take the bus to her destination. Pt is unsure where her destination is. CM spoke with patient in waiting room. Pt was here for chronic delusions. No admission to inpatient psych. Pt is aware of this. Pt states she cannot walk with all of her belongings, as she has a broken leg (she does not) and that she is (she is not). Pt cannot give CM an address Pt then telling CM that she works for the [employer]. CM explained that I would speak with the CARE team. CM spoke with Mona Bonner regarding this patient and Mona reviewed pt medical record. Attempts were made to find care home care for this pt while in the ED, without bed offers. Pt is aware of this. Mona and FRANCISCO JAVIER met with patient with options for discharge, including CM attempting to find a lyft, if patient can tell us where she will go or patient choosing a long term from the list given to her. The [facility] is aware of this patient and cannot provide services to her at this time. Pt has plan to go to [facility] [address] in [place]. Tells us that if they cannot take her, she will go to the long term, because they cannot refuse her in the winter. States she knows her rights. States if that doesn't work, the long term can call the police. Mona feels patient has a safe discharge. CM made several attempts to secure a Lyft ride, without success. CM tried until 6pm. Pt is agreeable to CM trying for another hour. Pt is requesting to be admitted. Explained that there was no medical need for her to be admitted today, but it is up to her if she signs in to be seen. Pt is aware that the psych team will see her if she signs in. Pt is adamant that she in not mentally ill (has Schizophrenia DX), but that she has emotional distress. CM explained that emotional distress is seen by the psych team. CARE team is aware of above situation and is continuing to try to obtain Lyft transport for this patient. They are aware that CM told patient she would look for another hour and then get back to her ([phone]). CARE team is now overseeing this patients transport.
== END 2022-04-20 15:09 | disposition home or self-care (01) ==
PROVIDERS: Physician Assistant Medical; Emergency Provider Student in an Organized Health Care Education/Training Program
DX: F41.9 Anxiety disorder, unspecified (principal); R53.1 Weakness; F25.0 Schizoaffective disorder, bipolar type; E11.8 Type 2 diabetes mellitus with unspecified complications; Z59.00 Homelessness unspecified; Z87.891 Personal history of nicotine dependence; Z20.822 Contact with and (suspected) exposure to COVID-19
CPT/HCPCS: 80307; 81001; 81025; 82947; 87086; 87635; 97162; 99285; S9485

== ENCOUNTER 2022-04-22 21:44 | Emergency (ER) | payer OTHER, SELFPAY ==
[2022-04-22 21:52] VITALS: BP 136/76; PULSE 100; O2SAT 97
[2022-04-22 21:57] VITALS: BP 123/58; PULSE 104; RESP 18; TEMP 36.8; O2SAT 96; BMI 59.0
--- NOTE | 2022-04-22 22:06 | ED.GENADULT ---
HPI - General Adult General Chief complaint: General Medical Stated complaint: WEAKNESS,30 WEEKS ,EMS AWARE Time Seen by Provider: 04/22/22 21:45 Source: patient Mode of arrival: EMS Limitations: no limitations History of Present Illness HPI narrative: Patient been here multiple times for paranoid delusions with history of schizoaffective disorder, bipolar type just discharged from on 04/13 comes here for nonspecific weakness also claimed that she is although multiple tests were negative. Related Data Home Medications Medication Instructions Recorded Confirmed No Known Home Meds 04/02/22 04/17/22 Allergies Allergy/AdvReac Type Severity Reaction Status Date / Time oxybutynin Allergy Unknown Hallucinati Unverified 04/01/22 11:16 ons tramadol Allergy Unknown Swelling/Hi Verified 04/01/22 11:16 ves tramadol Allergy Unknown edema, Uncoded 04/01/22 11:16 hives, sob Review of Systems Review of Systems: Yes all other systems are reviewed and are negative PMFSH Past Medical History Medical History Delusions Paranoid Social History Social History Household Members: None Household Members Other:: 3 Housing: Homeless Do you presently have visiting nurse or other home services: No Unable to assess alcohol history related to: Refusing to respond Alcohol intake: unknown Patient Tobacco Use Status: Former Tobacco user Second Hand Smoke Exposure: No Substance Use Type: Unknown service: No Sexual orientation: Straight/Heterosexual Physical Exam ED Vital Signs: Vital Signs - 24 hr 04/22/22 21:57 Temperature 98.3 F Pulse Rate 104 H Respiratory Rate 18 Blood Pressure 123/58 L Pulse Oximetry 96 Oxygen Delivery Method Room Air BMI result Body Mass Index 59.0 Appearance: Alert. Oriented X3. No acute distress. Obese Eyes: PERRLA, No Nystagmus ENT: Pharynx normal. Oral Mucosa moist Neck: Normal inspection. Neck supple. CVS: Normal heart rate and rhythm. Pulses normal. Respiratory: No respiratory distress. Equal air entry bilateral, no wheezing/rales/rhonchi Abdomen: Soft and nontender. Bowel sounds are present, no mass palpable, no CVA tenderness Skin: Skin warm and dry. Normal skin color. Normal skin turgor. Extremities: No lower extremity edema. No calf tenderness psych: Delusional+++ paranoid Neuro: Oriented X 3. No motor deficit. No sensory deficit.No cerebellar signs , cranial nerves II-XII intact Medical Decision Making Medical Decision Making MDM Narrative: Patient has schizoaffective disorder recently admitted and discharged advised to continue her medication case discussed care team advise outpatient management Discharge Plan Discharge Clinical Impression: Paranoid Patient Disposition: Home, Self-Care Instructions: Schizoaffective Disorder (ED) Additional Instructions: Taking medication as prescribed and follow-up with the psychiatrist Prescriptions: No Action No Known Home Meds
== END 2022-04-22 22:44 | disposition home or self-care (01) ==
LOC: HO.ED 22:35
PROVIDERS: Emergency Provider Internal Medicine
DX: F25.0 Schizoaffective disorder, bipolar type (principal); F22 Delusional disorders
CPT/HCPCS: 99282

== ENCOUNTER 2022-04-24 21:33 | Emergency (ER) | payer OTHER, SELFPAY ==
--- NOTE | ~2022-04-24 | XR_ITS ---
EXAMINATION: XR KNEE, LEFT CLINICAL INFORMATION: Acute left knee pain COMPARISON: None TECHNIQUE: Four views of the left knee. FINDINGS: No acute fracture or dislocation. Small tricompartmental marginal osteophytes. Small knee joint effusion. Soft tissues unremarkable. XR/XR knee LT 4V IMPRESSION: * No acute fracture or dislocation. * Small knee joint effusion.
[2022-04-24 21:39] VITALS: BP 150/90; PULSE 80; RESP 16; O2SAT 95; O2SAT 99; BMI 47.9
--- NOTE | 2022-04-25 02:13 | ED.GENADULT ---
HPI - General Adult General Chief complaint: Extremity Injury, Lower Stated complaint: Left Knee Pain Time Seen by Provider: 04/25/22 02:01 Source: patient Mode of arrival: ambulatory Limitations: no limitations History of Present Illness HPI narrative: 52-year-old female with history of schizoaffective disorder, bipolar disorder, delusional disorder presents with left knee pain. Patient has had these symptoms for a couple of years. Last night the cup petechial early worse. There is no new trauma, twisting injury, falls or other injuries. Pain does not radiate. Worse with ambulation. It is not associated with any effusion or leg swelling that is different from previous. She denies any other joints being affected. Patient also reports being approximately 8 months . She has thought this in the past previous tests were negative. Related Data Home Medications Medication Instructions Recorded Confirmed No Known Home Meds 04/02/22 04/17/22 Allergies Allergy/AdvReac Type Severity Reaction Status Date / Time oxybutynin Allergy Unknown Hallucinati Unverified 04/01/22 11:16 ons tramadol Allergy Unknown Swelling/Hi Verified 04/01/22 11:16 ves tramadol Allergy Unknown edema, Uncoded 04/01/22 11:16 hives, sob Review of Systems Review of Systems: CONSTITUTIONAL: Denies weight loss, fever and chills. HEENT: Denies changes in vision and hearing. RESPIRATORY: Denies SOB and cough. CV: Denies palpitations no CP. GI: Denies abdominal pain, nausea, vomiting and diarrhea. : Denies dysuria and urinary frequency. MSK: Denies myalgia + joint pain. SKIN: Denies rash and pruritus. NEUROLOGICAL: Denies headache and syncope. PSYCHIATRIC: Denies recent changes in mood. Denies anxiety and depression. All other ROS are negative unless in HPI PMFSH Past Medical History Medical History Delusions Paranoid Social History Social History Household Members: None Household Members Other:: 3 Housing: Homeless Do you presently have visiting nurse or other home services: No Unable to assess alcohol history related to: Refusing to respond Alcohol intake: unknown Patient Tobacco Use Status: Former Tobacco user Second Hand Smoke Exposure: No Substance Use Type: Unknown Advance Directives: No service: No Sexual orientation: Straight/Heterosexual Physical Exam ED Vital Signs: Vital Signs - 24 hr 04/24/22 21:39 Pulse Rate 80 Respiratory Rate 16 Blood Pressure 150/90 H Pulse Oximetry 95 Oxygen Delivery Method Room Air BMI result Body Mass Index 47.9 GEN: Well developed, no acute distress, alert, oriented HEENT: Normocephalic, atraumatic, normal external ears, nose appears normal, no oropharyngeal edema or exudates Eyes: Normal to appearance Neck: Supple, no lymphadenopathy Respiratory: Talks in complete sentences, no respiratory distress, clear to auscultation bilaterally Cardiovascular: Regular rate and rhythm, no murmurs rubs or gallops Abdomen: Soft, nontender, nondistended, no guarding, no rebound Back: No CVA tenderness Extremities: No clubbing cyanosis or edema , no joint effusion of the left knee, no traumatic ecchymoses, normal stability Neurologic: No focal neurologic deficits, cranial nerves 2-12 intact, strength is 5/5 bilaterally, gait normal Skin: No rash psych: Positive delusions Course Course Course Narrative: 52-year-old female presents with acute left knee pain. Symptoms have been ongoing for couple of years but got acutely worse 1 day ago. Symptoms are worse with ambulation. Examination did not reveal any ecchymosis, deformity, joint instability, joint effusion. Will obtain an x-ray of the left knee to rule out any other injuries that might otherwise be undetectable. Suspect sprain or strain of the left knee at this time additionally, patient has delusions of being approximately 8 months. Previous test negative. Bedside ultrasound identified no pregnancies. As her delusions are stable, this does not warrant emergent psychiatric evaluation. Patient appears tab no threat to self or others. Reevaluation(s) Reevaluation #1: I reviewed the x-ray results with the patient. Patient will be discharged. Will provide her with Tylenol prior to discharge. Recommend follow-up with an orthopedist. Time: 03:29 Medical Decision Making Medical Decision Making MDM Narrative: 52-year-old female presents with acute left knee pain. Symptoms have been ongoing for couple of years but got acutely worse 1 day ago. Symptoms are worse with ambulation. Examination did not reveal any ecchymosis, deformity, joint instability, joint effusion. Will obtain an x-ray of the left knee to rule out any other injuries that might otherwise be undetectable. Suspect sprain or strain of the left knee at this time additionally, patient has delusions of being approximately 8 months. Previous test negative. Bedside ultrasound identified no pregnancies. As her delusions are stable, this does not warrant emergent psychiatric evaluation. Patient appears tab no threat to self or others. Differential Diagnosis Differential Diagnoses: The differential diagnosis associated with the presentation includes ( Sprain, strain, fracture) left knee pain Admission/Observation Consideration of admission/observation: Escalation of care including admission/observation considered ( patient warrants no psychiatric evaluation at this time as she has no SI or HI. She has stable delusions. She has outpatient follow-up.) Independent Interpretation I performed an independent interpretation of an: Plain X-Ray ( Left knee: No acute traumatic injury) Radiology Impression Discussion of test interpretation with radiology: I have reviewed the radiologist's reading. (IMPRESSION: * No acute fracture or dislocation. * Small knee joint effusion. Dictated By:Hermes Simmons MDSigned By:<Electronically signed by Hermes Simmons MD in OV>04/25/22 03) External Record Review External record reviewed: Inpatient record ( previous emergency department visits) Tests considered The following testing was considered but not selected: CT scan of the left knee, MRI of the left knee, not indicated at this time Prescription Management I considered prescription management with: Pain Medication Social Determinants Patient?s care significantly limited by Social Determinants of Health including: Inadequate housing Discharge Plan Discharge Clinical Impression: Left knee sprain Patient Disposition: Home, Self-Care Instructions: Knee Sprain (ED) Prescriptions: No Action No Known Home Meds Referrals: [facility] [place] [facility] [Provider Group] [facility] [place] Group] - 1 week
== END 2022-04-25 04:26 | disposition home or self-care (01) ==
PROVIDERS: Emergency Provider Emergency Medicine
DX: S83.92XA Sprain of unspecified site of left knee, initial encounter (principal); X58.XXXA Exposure to other specified factors, initial encounter; Y93.9 Activity, unspecified; Y92.9 Unspecified place or not applicable; Y99.9 Unspecified external cause status
CPT/HCPCS: 73564; 99283

== ENCOUNTER 2023-11-30 10:53 | Inpatient (IN) | payer MEDICARE, MEDICAID, SELFPAY ==
--- NOTE | 2023-11-30 11:11 | ED_ITS ---
HPI - General Adult General Chief complaint: Psychiatric Symptoms Stated complaint: (NO AGE GIVEN) SEC 12,REFUSING EMS TX PER EMS Time Seen by Provider: 11/30/23 11:10 Source: patient and EMS Mode of arrival: EMS History of Present Illness ED Provider: Betsy Peng PA-C HPI narrative: Patient is a 53 year old assigned female at with a history of schizoaffective disorder presenting to the emergency department today on a section 12 from the community for increased delusions and refusing to take her medication. Patient states that she will absolutely not be giving blood work because it is against all of her taoism beliefs. Patient states that she is with twins and she does not have a due date because she will not be allowing them to be born until she believes it is safe to do so. Patient denies any dizziness, lightheadedness, abdominal pain, nausea, vomiting, fever, chills, blurry vision, double vision, loss of vision, chest pain, difficulty breathing, shortness of breath, back pain, night sweats, pain with urination, increased urinary frequency, increased urinary urgency, blood in her urine or stool, syncope or a near syncopal episode, recent trauma or falls, bowel incontinence, bladder incontinence, or any other complaints at this time. Relieving factors: none Exacerbating factors: none Associated symptoms: denies other symptoms Treatments prior to arrival: none Related Data Home Medications ?Medication ?Instructions ?Recorded ?Confirmed No Known Home Meds 04/02/22 04/17/22 Allergies Allergy/AdvReac Type Severity Reaction Status Date / Time oxybutynin Allergy Unknown Hallucinati Verified 11/30/23 11:25 ons tramadol Allergy Unknown Swelling/Hi Verified 11/30/23 11:25 ves tramadol Allergy Unknown edema, Uncoded 11/30/23 11:25 hives, sob Review of Systems Constitutional: Constitutional: Reports no additional constitutional complaints, Denies chills, Denies fever(s) and Denies night sweats Eyes: Eyes: Reports no additional eye complaints, Denies blurry vision, Denies change in vision, Denies diplopia, Denies eye discharge, Denies loss of vision and Denies eye pain ENT: Denies dizziness Cardiovascular: Cardiovascular: Reports no additional cardiovascular complaints, Denies chest pain, Denies lightheadedness, Denies Loss of Consciousness and Denies dyspnea Respiratory: Respiratory: Reports no additional respiratory complaints and Denies dyspnea Gastrointestinal: Gastrointestinal: Reports no additional gastrointestinal complaints, Denies abdominal pain, Denies melena, Denies hematochezia, Denies change in bowel habits and Denies change in stool character Genitourinary: Genitourinary: Denies hematuria, Denies urinary frequency, Denies dysuria, Denies urinary incontinence, Denies urinary hesitancy and Denies urinary urgency Musculoskeletal: Musculoskeletal: Reports no additional musculoskeletal complaints, Denies numbness and Denies tingling Neurologic: Denies dizziness, Denies loss of vision, Denies numbness and Denies tingling Psychiatric: Comments: fixed delusions of Endocrine: Endocrine: Reports no additional endocrine complaints Hematologic/Lymphatic: Hematologic/Lymphatic: Reports no additional hematologic/lymphatic complaints Allergic/Immunologic: Allergic/Immunologic: Reports no additional allergic/immunologic complaints PMFSH Past Medical History Attestation statement: The following information was validated with the patient. Source: old records reviewed and nursing notes reviewed Medical History Delusions Paranoid Social History Social History Household Members: None Household Members Other:: 3 Housing: Homeless Do you presently have visiting nurse or other home services: No Unable to assess alcohol history related to: Refusing to respond Alcohol intake: unknown Patient Tobacco Use Status: Former Tobacco user Second Hand Smoke Exposure: No Substance Use Type: Unknown Advance Directives: No Advance Directives Information Provided: Yes Do you have a plan to hurt others: No Plan service: No Sexual orientation: Straight/Heterosexual Physical Exam ED Vital Signs: Vital Signs - 24 hr 11/30/23 11:25 Temperature 97 F Pulse Rate 84 Respiratory Rate 14 Blood Pressure 166/81 H Pulse Oximetry 99 Oxygen Delivery Method Room Air BMI result Body Mass Index 55.2 Const General: cooperative, no acute distress, alert and awake Nutritional Appearance: well nourished Orientation/consciousness: patient oriented x3 Limitations: no limitations HENMT Head: Yes normal to inspection and Yes atraumatic Ears: hearing grossly normal bilaterally and external ears normal General nose exam: Normal external nose present, no nasal discharge noted and no epistaxis Face and sinus: Yes normal facial exam, No abrasion and No laceration Mouth: Normal oral and palatal mucosa present, no drooling and no muffled voice Eyes General: appearance normal, both eyes and all related structures Periorbital: periorbital findings normal Eyelids: Yes eyelids normal Conjunctivae: conjunctivae normal Pupils: Equal, round and reactive pupils present EOM: EOMs intact bilaterally Neck Neck: Yes normal visual inspection, Yes full ROM and Yes no lymphadenopathy Chest Chest palpation & inspection: normal inspection of the chest Resp Effort & Inspection: normal respiratory effort and able to speak in complete sentences GI Inspection: Yes normal to inspection Neuro General: patient oriented x3 and moves all extremities Cranial nerves: Yes Equal, round and reactive pupils present Cognition (Neuro): normal cognition Extrem General: Yes normal to inspection, Yes full ROM and Yes capillary refill normal Psych Thought process: Illogical thought process present Thought content: Paranoid delusions present and delusions Medical Decision Making Medical Decision Making [facility] Narrative: Patient is a 53 year old assigned female at with a history of schizoaffective disorder presenting to the emergency department today on a section 12 from the community for increased delusions and refusing to take her medication. Patient's physical exam showed an obviously delusional individual. Patient refused all blood work citing taoism reasons. I explained my physical exam findings as well as all test results to the patient. I answered all questions asked by the patient. Patient is awaiting psychiatric hospitalization or transfer to a hospital with psychiatric capabilities. Differential Diagnosis Differential Diagnoses: The differential diagnosis associated with the presentation includes Paranoid delusions Fixed delusions Medication non compliance Admission/Observation Consideration of admission/observation: Escalation of care including admission/observation considered Patient is awaiting psychiatric hospitalization or transfer to a hospital with psychiatric capabilities Lab Data [facility] Lab Attestation statement: I reviewed the patient's lab results. My interpretation of these results are in the MDM Rationale portion of this note. Labs: Lab Results 11/30/23 Range/Units 11:28 Urine Color Dark Yellow Urine Appearance Clear Urine pH 7.0 (5.0-9.0) Ur Specific Currie >= 1.030 H (1.005-1.025) Urine Protein Negative (Neg-Trace) mg/dL Urine Glucose (UA) >=1000 H (Negative) mg/dL Urine Ketones Negative (Negative) mg/dL Urine Blood Negative (Negative) Urine Nitrite Negative (Negative) Ur Leukocyte Esterase Trace H (Negative) Urine RBC 0-2 (0-2) /HPF Urine WBC 0-5 (0-5) /HPF Ur Squamous Epith Cells 3-5 (0-2) /HPF Urine Bacteria Trace (None Seen) Hyaline Casts 0-2 (0-2) /LPF Urine Yeast Present Urine Test NEGATIVE (NEGATIVE) Urine Opiates Screen Not Detected (Not Detect) Ur Buprenorphine Scrn Not Detected (Not Detect) ng/mL Ur Oxycodone Screen Not Detected (Not Detect) ng/mL Urine Methadone Screen Not Detected (Not Detect) ng/mL Urine Fentanyl Screen Not Detected (Not Detect) Ur Barbiturates Screen Not Detected (Not Detect) Ur Phencyclidine Scrn Not Detected (Not Detect) Ur Amphetamines Screen Not Detected (Not Detect) U Benzodiazepines Scrn Not Detected (Not Detect) Urine Cocaine Screen Not Detected (Not Detect) U Marijuana (THC) Screen Not Detected (Not Detect) Independent Historian Clinical information obtained from an independent historian. History obtained from or confirmed by: EMS (EMS provided additional history and confirmed the history provided by the patient.) Critical Care Time Critical Care Time Critical Care Time: Yes Total Critical Care Time: 34 Attestation: I spent 34 minutes of Critical Care Time with this patient. This does not include time spent on separately reported billable procedures. Discharge Plan Discharge Clinical Impression: Paranoid, Delusions Patient Disposition: Still a Patient Prescriptions: No Action No Known Home Meds Interventions: Bollinger-Suicide Risk Severity Scale Last Done: 11/30/23 14:19 Print Language: Syriac
--- NOTE | 2023-11-30 11:17 | MHC.CARE ---
N called in expect, pt on section 12 and will be inpatient level of care. N to send assessment when completed. Pt has not been medication compliant, is homelessness, paranoid and delusional. Pt is unable to care for self in the community or advocate for self and is at risk. She can be verbally combative and is obese.
[2023-11-30 11:25] VITALS: BP 166/81; PULSE 84; RESP 14; TEMP 36.1; O2SAT 99; BMI 55.2
--- NOTE | 2023-11-30 11:57 | MHC.EDTECH ---
VALUABLES IN SECURITY, TAG NUMBER [id number] @ THIS TIME
[2023-11-30 11:59] LABS: Appearance Urine Clear; Color Urine Dark Yellow; Glucose Urine UA >=1000 mg/dL (Negative); Leukocyte Esterase Urine Trace (Negative); Nitrite Urine Negative (Negative); Specific Gravity - Urine >= 1.030 (1.005-1.025); UMIC TRIGGER UACC YES; Urine Blood Negative (Negative); Urine Ketones Negative (Negative); Urine Protein Negative (Neg-Trace)
[2023-11-30 12:01] LABS: UPreg QC Valid YES; Urine Pregnancy NEGATIVE (NEGATIVE)
[2023-11-30 12:09] LABS: Amphetamine Screen Urine Not Detected (Not Detect); Barbiturates, Urine Not Detected (Not Detect); Benzodiazepines Screen Urine Not Detected (Not Detect); Buprenorphine Scr Not Detected (Not Detect); Cannabinoid Screen Urine Not Detected (Not Detect); Cocaine Screen Urine Not Detected (Not Detect); Fentanyl, urine Not Detected (Not Detect); Methadone Screen, Urine Not Detected (Not Detect); Opiate Screen Urine Not Detected (Not Detect); Oxycodone Screen Urine Not Detected (Not Detect); Phencyclidine Screen Urine Not Detected (Not Detect)
--- NOTE | 2023-11-30 12:14 | PC.NURSE ---
patient changed into hospital attire, belongings secured. placed in closet locker. patient denies SI/HI has sitter in place for safety.
[2023-11-30 12:19] LABS: Bacteria Urine Trace (None Seen); Hyaline Casts Urine 0-2 /LPF (0-2); RBC Urine 0-2 /HPF (0-2); WBC Urine 0-5 /HPF (0-5)
--- NOTE | 2023-11-30 13:32 | PC.NURSE ---
pt moved to POD, this RN cut the ties off the bariatric johnnies as idris not available
[2023-11-30 14:49] VITALS: BP 140/74; PULSE 90; RESP 20; TEMP 36.8; O2SAT 98
--- NOTE | 2023-11-30 20:22 | MHC.EDTECH ---
pt refused vital signs
[2023-12-01 06:40] VITALS: RESP 16
--- NOTE | 2023-12-01 08:32 | PHA.MEDREC ---
Pharmacy Consult ? Medication Reconciliation Pharmacy has reviewed the medication reconciliation.
[2023-12-01 11:00] VITALS: RESP 16
--- NOTE | 2023-12-01 12:04 | PC.NURSE ---
pt presents to the nurses station at this time. pt verbalizing she has not had a meal in 3 days. pt's chart checked, regular diet placed days ago. pt then proceeded to tell this RN that she is 6 months w/ twins and requires a vegetarian diet. per pt's most recent upreg, she is not . pt's diet order changed to vegetarian. requesting to take a shower. pt now currently taking a shower at this time. otherwise has no complaints. plan of care ongoing.
--- NOTE | 2023-12-01 17:28 | PC.NURSE ---
pt incontinent of urine from BH1 floor all the way into the bathroom and then missed the toilet again and then urinated onto the floor. pt verbalizing to this RN that she was unable to make it to the restroom because, i am having twins. there's not much room in there (her bladder) so i just had to go on the floor. pt educated on the results of her urine test coming back negative. patient then stated, that's bullshit! anyone who looks at me can tell that I am and if i have to go then i have to go. it doesn't matter where it is. now go get a mop! tech called environmental at this time.
[2023-12-01 18:06] VITALS: RESP 16
--- NOTE | 2023-12-01 19:54 | MHC.EDTECH ---
This pct assumed care of Patient at 1900 ,Patient belongings list done ,Patient money and a pair of scissor are locked up with security .Patient belongings are locked up in locker #1 in pod .
[2023-12-01 20:04] VITALS: RESP 15
[2023-12-02 06:07] VITALS: RESP 16
--- NOTE | 2023-12-02 06:15 | PC.NURSE ---
Patient slept intermittently, in and out of room multiple times, intrusive at times, no behavior and safety concerns, disposition per care team is section 12 inpatient bed search, will continue to monitor
--- NOTE | 2023-12-02 08:14 | PC.NURSE ---
Assumed care of patient at 0645, patient appears to be in no apparent distress this am, took shower without issue. Calm and cooperative, alert and oriented x3, appears to be confused to what her situation is at this time. Pt is aware of plan of care for inpatient bedsearch
--- NOTE | 2023-12-02 13:00 | PC.NURSE ---
pt has visible cracking on bilateral feet which she reports has been there for quite some time, she also has an area of psoriasis on the right knee, Ann GONZALEZ aware
[2023-12-02 15:11] VITALS: BMI 53.9
[2023-12-02 15:12] VITALS: BP 156/80; PULSE 79; RESP 18; TEMP 37.1; O2SAT 97
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
[2023-12-02 20:00] VITALS: BP 135/62; PULSE 85; RESP 14; TEMP 36.9; O2SAT 95
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
[2023-12-06 20:00] VITALS: BP 159/76; O2SAT 97
--- NOTE | 2023-12-07 08:54 | PM.PSYDC ---
DS: Providers Provider Date of Service: 12/07/23 Date of admission: 12/02/23 13:49 Date of discharge: 12/07/23 Primary care physician: Sb Peters [facility] Admitting clinician: Steve Martínez Attending physician on admission: Steve Martínez Attending physician on discharge: Josh Moctezuma Discharging clinician: Azul Nolan DS: Diagnosis Discharge Diagnosis (1) Schizoaffective disorder, bipolar type: Status: Acute DS: Medications Discharge Medications Home Medications: Home Medications ?Medication ?Instructions ?Recorded ?Confirmed No Known Home Meds 04/02/22 11/30/23 Mental Status Exam Mental Status Exam Narrative: Declines diagnostics and further assessment. Patient Appearance: Appropriate Patient Orientation: Person, Place, Time and Situation Level of Consciousness: Alert Mood Description: Appropriate Affect Description: Appropriate Patient Cognition Impaired: No Ability to Follow Directions: Good Speech Pattern: Spontaneous Speech Memory Description: Episodic Impaired Hallucinations: None Delusions: Present (fixed system) Thought Content: positive for Circumstantial and positive for Suicidal Ideation (denies) Judgement: Fair Data Data Completed and Pending Completed studies during hospitalization [Text1]: 11/30/23 11:28 Urine Color Dark Yellow Urine Appearance Clear Urine pH 7.0 Ur Specific [place] >= 1.030 H Urine Protein Negative Urine Glucose (UA) >=1000 H Urine Ketones Negative Urine Blood Negative Urine Nitrite Negative Ur Leukocyte Esterase Trace H Urine RBC 0-2 Urine WBC 0-5 Ur Squamous Epith Cells 3-5 Urine Bacteria Trace Hyaline Casts 0-2 Urine Yeast Present Urine Test NEGATIVE Urine Opiates Screen Not Detected Ur Buprenorphine Scrn Not Detected Ur Oxycodone Screen Not Detected Urine Methadone Screen Not Detected Urine Fentanyl Screen Not Detected Ur Barbiturates Screen Not Detected Ur Phencyclidine Scrn Not Detected Ur Amphetamines Screen Not Detected U Benzodiazepines Scrn Not Detected Urine Cocaine Screen Not Detected U Marijuana (THC) Screen Not Detected DS: Summary Hospital Course Hospital Course: Admission to adult psychiatry for exacerbation of schizoaffective disorder, bipolar type with fixed delusions and chronic homelessness. Pt was found to be disorganized in community without risky behaviors. Pt signed in voluntarily, she signed a three day notice, worked with the team whom she knows well in the milieu, allowed some care, declined medications and diagnostics due to gnosticism convictions and recompensated. She discharged to return to her area, aware she can call/return if needed. Status at Discharge Functional status at discharge: independent ambulation Overall status at discharge: patient is progressing back to baseline Time Spent with Patient Time attestation: Total time managing care of this patient today ____ minutes. Time spent: Less than 30 minutes Discharge Plan Discharge Anticipated Discharge Date/Time: 12/07/23 12:00 Patient Disposition: Xfer Other Discharge Diagnosis: Schizoaffective Disorder, Bipolar Type Referrals: Sb Peters FNP-BC [Primary Care Provider] - 1 Week (no release signed) Discharge Medications: No Action No Known Home Meds Discharge Orders: Discharge Order (Routine); Ordered 12/07/23 Ordered By: Azul Nolan Diet: Advance to usual diet Activity on Discharge: As tolerated Stand Alone Forms: Patient Portal Discharge page, Community Support Print Language: Jordanian Care Plan Goals: Mood and Behavioral Stabilization Safe living Health Concerns: Mood and Behavioral Stabilization Safe living Plan of Treatment: Ama declines medications or further treatment. Call and or return as needed Assessment: No SI/HI/AH/VH No sx of varinder Discharges today on a three day notice of intent. Discharge Date/Time: 12/07/23 11:18
== END 2023-12-07 11:18 | disposition other institution (70) | DRG 885 ==
LOC: HO.ED 12-01 17:07 → HO.PM5 12-02 14:11
PROVIDERS: Physician Assistant Medical; Admitting Provider Psychiatry & Neurology Psychiatry; Emergency Provider Emergency Medicine; PCP Nurse Practitioner Family; Visit Provider Clinical Nurse Specialist Psychiatric/Mental Health, Adult
DX: F25.0 Schizoaffective disorder, bipolar type (principal); Z87.891 Personal history of nicotine dependence; Z91.148 Patient's other noncompliance with medication regimen for other reason; Z91.199 Patient's noncompliance with other medical treatment and regimen due to unspecified reason; Z79.899 Other long term (current) drug therapy
CPT/HCPCS: 80307; 81001; 81025; 99285; S9485

== ENCOUNTER → 2023-12-02 13:49 | Outpatient (BNV) | payer MEDICARE, SELFPAY | PROVIDERS: Admitting Provider Psychiatry & Neurology Psychiatry; Emergency Provider Emergency Medicine; PCP Nurse Practitioner Family; Visit Provider Psychiatry & Neurology Psychiatry | DX: F25.0 Schizoaffective disorder, bipolar type (principal) | CPT/HCPCS: 99222; 99231; 99232; 99238 ==

== ENCOUNTER 2024-10-29 21:53 | Emergency (ER) | payer MEDICARE, SELFPAY ==
--- OUTSIDE RECORDS SUMMARY | 2024-10-29 02:23 | XMS_ITS | Encounter Summary ---
Author Organization [facility] Address [id number] [place] [id number] Care Team Providers Care Safekeeping Clerk Name Role Phone Kaveh Silveira MD Primary Care Provider [phone] Reason for Visit * Reason Comments Ankle Pain Bilateral foot pain, discharged from here 5 hours ago Encounter Details Date Type Department Care Team (Late st Contact Info) Description 10/29/2024 2:23 AM EDT - 10/29/2024 2:42 AM EDT Emergency [facility] Emergency [address] [place] [address] Foot pain, bilateral (Primary Dx); Homelessness Discharge Disposition: Home or Self Care Social History Tobacco Use Types Packs/Day Years Used Date Smoking Tobacco: Former Alcohol Use Standard Drinks/Week Comments Yes 0 (1 standard drink = 0.6 oz pur e alcohol) Comments Unknown Sex and Gender Information Value Date Recorded Sex Assigned at Not on file Legal Sex Female 12:56 AM EST Gender Identity Not on file Sexual Orientation Not on file documented as of this encounter Last Filed Vital Signs Vital Sign Reading Time Taken Comments Blood Pressure 138/67 10/29/2024 2:22 AM EDT Pulse 83 10/29/2024 2:22 AM EDT Temperature 36.6 C (97.9 F) 10/29/2024 2:22 AM EDT Respiratory Rate 18 10/29/2024 2:22 AM EDT Oxygen Saturation 98% 10/29/2024 2:22 AM EDT Inhaled Oxygen Concentration - - Weight 159 kg (350 lb) 10/29/2024 2:22 AM EDT Height 170.2 cm (5' 7 ) 10/29/2024 2:22 AM EDT Body Mass Index 54.82 10/29/2024 2:22 AM EDT documented in this encounter Discharge Disposition Disposition Code Departure Means Destination Comment s Home or Self Half-Way documented in this encounter Progress Notes * Theron Gu RN - 10/29/2024 1:28 AM EDT BIBA from outside a [employer] restaurant c/o bilateral foot pain from walking. Pt was seen and discharged from here 5 hours ago. Pt in NAD. * LISA Morales - 10/29/2024 1:20 AM EDT HPI Chief Complaint Patient presents with Ankle Pain Bilateral foot pain, discharged from here 5 hours ago Patient 54-year-old female past medical history delusional disorder presenting to the emergency department complaining of bilateral foot pain after being discharged 5 hours ago. She states that she is unable to sustain her own body weight due to obesity and that she subsequently has pain and is unable to walk across the city. Efforts were made at discharge planning earlier today. Patient refused this. She now tells me that she wishes that she had not and she wishes to have a place to lay down to sleep. History provided by: Patient parts puller used: No [place] Coma Scale Score: 15 Patient History No past medical history on file. No past surgical history on file. No family history on file. Social History Tobacco Use Smoking status: Former Smokeless tobacco: Not on file Substance Use Topics Alcohol use: Yes Drug use: No Review of Systems Review of Systems All other systems reviewed and are negative. Physical Exam ED Triage Vitals Temp Pulse Resp BP -- -- -- -- SpO2 Temp src Heart Rate Source Patient Position -- -- -- -- BP Location FiO2 (%) -- -- Physical Exam Vitals and nursing note reviewed. Constitutional: General: She is not in acute distress. Appearance: Normal appearance. She is normal weight. She is not toxic-appearing or diaphoretic. HENT: Head: Normocephalic and atraumatic. Nose: Nose normal. Mouth/Throat: Mouth: Mucous membranes are moist. Pharynx: No oropharyngeal exudate or posterior oropharyngeal erythema. Eyes: General: No scleral icterus. Extraocular Movements: Extraocular movements intact. Conjunctiva/sclera: Conjunctivae normal. Cardiovascular: Rate and Rhythm: Normal rate and regular rhythm. Pulses: Normal pulses. Heart sounds: Normal heart sounds. Pulmonary: Effort: Pulmonary effort is normal. Breath sounds: Normal breath sounds. Musculoskeletal: General: Normal range of motion. Cervical back: Normal range of motion and neck supple. Skin: General: Skin is warm and dry. Capillary Refill: Capillary refill takes less than 2 seconds. Neurological: General: No focal deficit present. Mental Status: She is alert. Cranial Nerves: No cranial nerve deficit. Motor: No weakness. Gait: Gait normal. ED Course & MDM Clinical Impressions as of 10/29/[address] Foot pain, bilateral Homelessness Medical Decision Making Differential diagnosis delusional disorder strain sprain. Considered but no evidence suggestive of skin soft tissue infection, fracture or dislocation. Patient observed walking without difficulty emergency department waiting room. Patient tells me that she needs a place to lay down and sleep. Extensive efforts were made at house by crisis team. She tells me. She has a list of homeless shelters. History is not suggestive of potential for acute emergent medical condition. Exam is reassuring. Patient is discharged Procedures LISA Morales 10/29/[address] Cosigned by Nisha Sutherland MD at 10/29/2024 5:29 AM EDT documented in this encounter Plan of Treatment Not on file documented as of this encounter Visit Diagnoses Diagnosis Foot pain, bilateral- Primary Homelessness Lack of housing documented in this encounter Care Teams Safekeeping Clerk Relationship Specialty Start Date End Date Kaveh Silveira MD [address] [place] [address] PCP - General 03/29/07 documented as of this encounter
[2024-10-29 22:04] VITALS: BP 134/73; BP 148/72; PULSE 85; PULSE 88; RESP 16; TEMP 36.6; O2SAT 98; BMI 50.3
--- OUTSIDE RECORDS SUMMARY | 2024-10-29 22:36 | XMS_ITS | Clinical Summary ---
Author Organization [facility] Address [address] [place] [phone] Phone Care Team Providers Care Epic Professional Name Role Phone Pcp, Not Required Primary Care Provider Unavaila ble Allergies Active Allergy Reactions Criticality Noted Date Comments Oxybutynin Hallucinations High 05/14/2022 Medications * This document contains information received from the source organization and may not represent a complete record from that organization. No known medications Active Problems Problem Noted Date Diagnosed Date Bipolar 1 disorder 05/19/2022 Psychotic disorder with delusions 05/15/2022 Psychosis, unspecified psychosis type 05/14/2022 Assessment & Plan (05/31/2022 2:58 PM EDT): 1) Admit for locked psychiatric inpatient hospitalization 2) Continue to gather past history and collateral information. 3) Full/interval psychiatric evaluation. 4) Legal: CV with 3-day notice expiring 06/02; likely to discharge then 5) Dispo: Likely to penitentiary, pt declining alternatives 6) Psychiatric: a. Encourage group attendance b. Medications i. Continue to offer risperidone 1mg po bid, however pt refusing c. Safety i. q15 min checks d. Medical i. Appreciate med consult ii. Pt continues to refuse diabetic care Social History Tobacco Use Types Packs/Day Years Used Date Smoking Tobacco: Never Smokeless Tobacco: Never Tobacco Cessation:Counseling Given: Not Answered Education Answer Date Recorded Are you interested in more education? Not on emanuel e 07/10/2022 Are you concerned about learning? Not on file 07/10/2022 No 07/10/2022 No 07/10/2022 Digital Access Answer Date Recorded No 08/10/2022 No 08/10/2022 Reliable internet access at home? Not on file 08/10/2022 Device with a working camera? Not on file Intimate Partner Violence Answer Date R ecorded Are you denied basic needs s uch as food, clothing, or medical care? No 05/19/2022 In the past 12 months have y ou been in a relationship with a person who hurts, threatens, or tries to control you? No 05/19/2022 Are you denied basic needs s uch as food, clothing, or medical care? No 05/19/2022 In the past 12 months have y ou been in a relationship with a person who hurts, threatens, or tries to control you? No 05/19/2022 Comments Unknown Sex and Gender Information Value Date Recorded Sex Assigned at Female 05/19/2022 2:45 PM EST Legal Sex Female 4:39 PM EST Gender Identity Not on file Sexual Orientation Choose not to disclose 2022 2:45 PM EST Last Filed Vital Signs Vital Sign Reading Time Taken Comments Blood Pressure 127/60 05/20/2022 5:00 AM EST Pulse 88 05/20/2022 4:00 PM EST Temperature 36.9 C (98.5 F) 05/19/2022 1:28 PM EST Respiratory Rate 16 05/29/2022 4:30 PM EDT Oxygen Saturation 96% 05/19/2022 2:51 PM EST Inhaled Oxygen Concentration - - Weight 151 kg (332 lb 14.3 oz) 05/19/2022 2:51 P M EST Height 170.2 cm (5' 7 ) 05/19/2022 2:51 PM EST Body Mass Index 52.14 05/19/2022 2:51 PM EST Plan of Treatment Health Maintenance Due Date Last Done Comments DEPRESSION SCREENING 1983 HEPATITIS C SCREENING 1989 HIV ONE-TIME SCREENING (18-6 5 YEARS) 1989 PAP SMEAR 01/21/1992 MAMMOGRAM 2011 COLOGUARD 01/21/2016 COLONOSCOPY 01/21/2016 COLORECTAL CANCER SCREENING 01/21/2016 FIT TEST 01/21/2016 FOBT 01/21/2016 SIGMOIDOSCOPY 01/21/2016 VIRTUAL COLONOSCOPY 01/21/2016 PNEUMOCOCCAL VACCINES (50+ y ears) (1 of 1 - PCV) 2021 ZOSTER VACCINES (1 of 2) 2021 COVID-19 VACCINE (1 - 2023-2 5 season) 2023 SCREENING FOR DIABETES 05/23/2025 05/23/2022 LIPID PANEL 03/07/2026 03/07/2021 Adult Td,Tdap Booster 08/11/2027 08/10/2017 SMOKING STATUS SCREENING (On ce After 26 Yrs) Completed 05/19/2022 HEPATITIS A VACCINES Aged Out No long er eligible based on patient's age to complete this topic HIB VACCINES Aged Out No longer eligi ble based on patient's age to complete this topic MENINGOCOCCAL VACCINES (ACWY) Aged Out No longer eligible based on patient's age to complete this topic MENINGOCOCCAL VACCINES (B) Aged Out N o longer eligible based on patient's age to complete this topic Medical Devices Not on file Insurance [facility] MEDICARE PART A & B GENERIC COMMERCIAL [place] MEDICARE PART A & B [facility] Health [facility]CIAL [facility] & B GENERIC COMMERCIAL [facility] MEDICARE PART A & B GENERIC [place]ERCIAL [place] MEDICARE PART A & B GENERIC COMMERCIAL [facility] A & B GENERIC COMMERCIAL Advance Directives For more information, please contact: [phone] (9AM - 5PM [facility], Tuesday-Tuesday) * Full Code (Latest Code Status on File) Date Activated Date Inactivated Comments 05/19/2022 2:29 PM Question Answer Comments Code Status Confirmed With: Other (specify below ) Code Discussion Comments: presumed Care Teams Epic Professional Relationship Specialty Start Date End Date Pcp, Not Required [address] [place] [id number] PCP - General 05/14/22 Additional Source Comments The information contained in this document represents components of the legal health record. It is not the complete legal health record.[facility]
--- OUTSIDE RECORDS SUMMARY | 2024-10-29 22:36 | XMS_ITS | Clinical Summary ---
Author Organization [facility] Address [facility] [place] [address] Care Team Providers Care Study Abroad Advisor Name Role Phone None Primary Care Provider Unavailabl e Allergies Active Allergy Reactions Criticality Noted Date Comments Oxybutynin Other (See Comments) 03/11/2020 Unknown reaction or severity, info taken from patient's file from [facility] Reported in paper: hallucination Shellfish Containing Products Other (See Comments) 03/11/2020 Unknown reaction or severity, info taken from [facility] reported admission/hx and physical report Tramadol Hcl Other (See Comments) 03/11/2020 Unknown severity or reaction type, info taken from [facility] Medications No known medications Active Problems No known active problems Social History Tobacco Use Types Packs/Day Years Used Date Smoking Tobacco: Never Assessed Comments Unknown Sex and Gender Information Value Date Recorded Sex Assigned at Not on file Legal Sex Female 11:37 PM EST Gender Identity Not on file Sexual Orientation Not on file Last Filed Vital Signs Vital Sign Reading Time Taken Comments Blood Pressure 143/76 03/11/2020 9:44 PM EST Pulse 74 03/11/2020 9:44 PM EST Temperature 36.8 C (98.2 F) 03/11/2020 9:44 PM EST Respiratory Rate 18 03/11/2020 9:44 PM EST Oxygen Saturation 100% 03/11/2020 9:44 PM EST Inhaled Oxygen Concentration - - Weight - - Height - - Body Mass Index - - Plan of Treatment Health Maintenance Due Date Last Done Comments CT Colonography 1971 Colonoscopy 1971 Colorectal Cancer Screening 1971 FIT DNA 1971 FIT 1971 Sigmoidoscopy (10 year) with FIT yearly 1971 Sigmoidoscopy 1971 HIV screen 1989 Hepatitis C Screening 1989 Hepatitis B vaccine (0-59 yrs) and Risk (1) 1990 Tetanus/Diphtheria/Pertussis Vaccines (1 - Tdap) 01/20 HPV test 2001 PAP Smear 2001 Breast Cancer Share Decision Needed 2011 Breast Cancer screening 2011 Pneumoccocal Vaccine: 50+ (1 of 1 - PCV) 2021 Zoster vaccine (1 of 2) 2021 Covid-19 Vaccine (1 - 2023-25 season) 2023 Influenza (Flu) vaccine (1 o f 1 - Influenza standard series) 11/12/2024 Insurance [place] Sub[place] Plan / Payer (Ef fective 2020-Present) Name:Viri Manuel Relation to Subscriber:Self Name:Viri Manuel Payer ID:Not on file Group ID:Not on file Type:Not on file Address: [address] [id number] MANAGED MEDICARE [place] Care Teams Study Abroad Advisor Relationship Specialty Start Date End Date None None PCP - General 02/28/20
--- NOTE | 2024-10-30 01:39 | PC.NURSE ---
tech attempting to draw labs, pt declines sating it is against her faith, provider advised.
--- NOTE | 2024-10-30 02:26 | ED.PSYCH ---
HPI - Psych General Chief Complaint: Psychiatric Symptoms Stated Complaint: WEAK, , PSYCH? Time Seen by Provider: 10/30/24 00:07 Source: patient and EMS Mode of arrival: EMS Limitations: no limitations History of Present Illness ED Provider: Dr. Hope Miller HPI Narrative: 54-year-old female with history of housing and security and schizoaffective bipolar disorder presenting with bilateral foot pain after walking around all day today. Patient was brought in by ambulance from a grocery store where she asked staff to call 911. Describes leg pain and weakness after walking for days. States that she is hungry as well. She states that she is currently 6 or 7 months with twins. Does not recall her last menstrual cycle. Refuses to tell me who her car mechanic is because ?that is under your security clearance?. She denies illness including fever, chest pain, difficulty breathing, cough or cold-type symptoms, abdominal pain, vaginal bleeding or discharge, urinary complaints, known sick contacts. States ?I take really good care of myself and these babies?. Denies illicit substance use. Related Data Home Medications ?Medication ?Instructions ?Recorded ?Confirmed No Known Home Meds 04/02/22 11/30/23 Allergies Allergy/AdvReac Type Severity Reaction Status Date / Time oxybutynin Allergy Unknown Hallucinati Verified 10/29/24 22:09 ons tramadol Allergy Unknown Swelling/Hi Verified 10/29/24 22:09 ves tramadol Allergy Unknown edema, Uncoded 10/29/24 22:09 hives, sob Review of Systems Review of Systems: As per HPI, full review of systems performed and negative but for the above mentioned pertinent positives and negatives. [facility] Past Medical History Medical History Delusions Paranoid Social History Social History Household Members: None Household Members Other:: 3 Housing: Homeless Do you presently have visiting nurse or other home services: No Unable to assess alcohol history related to: Refusing to respond Alcohol intake: former Patient Tobacco Use Status: Former Tobacco user Second Hand Smoke Exposure: No Substance Use Type: Unknown Advance Directives: No Advance Directives Information Provided: No service: No Sexual orientation: Straight/Heterosexual Physical Exam Exam: Exam: GENERAL: Unkempt, no acute distress. SKIN: Normal skin color for ethnicity, warm, dry, no rashes noted. HEENT: Normocephalic, atraumatic, no stridor, posterior oropharynx nonerythematous, dentition intact, EOMI. NECK: Soft, supple, full ROM, midline structures nontender, no step-offs, no deformities, no lymphadenopathy. CHEST: Heart regular rate and rhythm, no murmurs, symmetric chest rise and fall. PULMONARY: Clear to auscultation bilaterally, no labored breathing, no wheezes/rhales/ rhonchi. ABDOMINAL: Soft, obese, nondistended, nontender, quiet bowel sounds in all quadrants. : Deferred. MUSCULOSKELETAL: Normal tone, full range of motion, no deformities, no peripheral edema. NEURO: Alert and oriented x3, CN II through XII intact, equal strength and sensation bilateral upper and lower extremities, no focal neurologic deficits. PSYCHIATRIC: Flat affect, poor eye contact, withdrawn Vital Signs: Vital Signs: Last Vital Signs Temp 98.2 F 10/30/24 08:15 Pulse 80 10/30/24 08:15 Resp 18 10/30/24 13:19 BP 146/69 H 10/30/24 08:15 Pulse Ox 98 10/30/24 08:15 O2 Del Method Room Air 10/30/24 13:19 BMI result Body Mass Index 50.3 Medical Decision Making Medical Decision Making MDM Narrative: Patient presents with psychologic complaints. Differential diagnosis includes delusions, suicidal ideations, homicidal ideations, depression, anxiety, mood disorder, decompensated mental illnesses such as schizophrenia or bipolar disorder, medication noncompliance, among many others. Medical clearance protocol was initiated. 2:32 AM 10/30/2024 (Dr. Hope Miller, D.O.) patient is refusing to give urine or blood samples. States ?it is against my hindu?. Though she is rather delusional, I do feel she has decision-making capacity. Offered her something to eat. She is requesting social work coordinator to help her with housing in the morning. We will continue to monitor. 7:28 AM 10/30/2024 (Dr. Hope Miller, D.O.) awaiting forensic social worker consult, signing out to oncoming provider pending final disposition. 1:36 PM 10/30/2024 (Cheyenne Ruby PA-C): Patient re-evaluated, she states that she presented to the emergency room as she was having bilateral foot pain. She does report that she is with twins. It appears that the previous provider did a bedside ultrasound that did not reveal any . Patient has a history of telling individuals that she is when this is not necessarily true. Patient states that she is feeling well however is having difficulties with housing. She does have a primary care physician who she can follow-up with. She has no chest pain, shortness for breath, abdominal pain, nausea, vomiting or diarrhea. No urinary symptoms, no vaginal discharge or bleeding. I discussed with patient that we can assess her through physical therapy to see if she qualifies for any short-term rehab given pain with ambulation. She passed physical therapy. He is unwilling to sign for [employer], she was given shelters and housing resources. She has no suicidal or homicidal ideation. No auditory or visual hallucinations. She does have delusions however it appears that she has the capacity to make decisions for her and does not appear to be a safety concern for her or others. At this time, she does not need a care team consult. Patient discharged. Physician observation ended. Differential Diagnosis Differential Diagnoses: The differential diagnosis associated with the presentation includes (As above) Admission/Observation Consideration of admission/observation: Escalation of care including admission/observation considered Independent Interpretation I performed an independent interpretation of an: Ultrasound Interpretation: Ultrasound at the bedside, no IUP identified Independent Historian Clinical information obtained from an independent historian. History obtained from or confirmed by: EMS Chronic Conditions Patient?s care impacted by: Diabetes and Other (Bipolar disorder) Social Determinants Patient?s care significantly limited by Social Determinants of Health including: Inadequate housing, Problems related to primary support group and Unemployment Procedures Ultrasound ED POC Ultrasound: EMERGENCY ULTRASOUND INTERPRETATION-Limited Uterus US The study reveals:? No IUP, obese abdomen, bladder is decompressed Impression: No IUP Indication: Patient reported 2nd trimester Uterus:? Not identified Free Fluid:? None Adnexa:??Unable to visualize Quant HCG:? Patient refusing to give blood sample Performed by: 2:31 AM 10/30/2024 (Dr. Hope Miller, D.O.) ? CPT: 55148 ; Reference Codes? https://bit.ly/[email or web address] Discharge Plan Discharge Clinical Impression: Delusions, Housing insecurity Patient Disposition: Home, Self-Care Additional Instructions: You were seen in the emergency department due to bilateral foot pain. You were seen by Physical therapy and did not qualify for any rehab today. You refused all labs. It is very important that you follow-up with your primary care physician. If any new or worsening symptoms occur including but not limited to severe chest pain, shortness of breath, please seek emergent care. Prescriptions: No Action No Known Home Meds Interventions: [place]-Suicide Risk Severity Scale Last Done: 10/29/24 22:59 Print Language: Welsh
[2024-10-30 04:00] VITALS: BP 132/76; PULSE 72; RESP 18; TEMP 36.7; O2SAT 98
--- NOTE | 2024-10-30 04:42 | MHC.EDTECH ---
pt refusing labs because of orthodox beliefs
[2024-10-30 08:15] VITALS: BP 146/69; PULSE 80; RESP 16; TEMP 36.8; O2SAT 98
--- NOTE | 2024-10-30 08:19 | PC.NURSE ---
assumed care of patient. Pt got angry with staff when trying to boost up in bed. Pt somewhat ambulatory, was able to get up and walk around the stretched. pt denies any foot pain at this time, but came in with foot pain from walking. A+Ox4, calm cooperative.
--- NOTE | 2024-10-30 08:30 | PC.NURSE ---
pt continuos to refuse blood work states it's against her [employer]
[2024-10-30 13:19] VITALS: RESP 18
--- NOTE | 2024-10-30 13:20 | PC.NURSE ---
Attempted to recheck vitals on patient, pt refused all vitals signs. Pt pending discharge.
--- NOTE | 2024-10-30 13:20 | MHC.CM.ED ---
Received case management consult overight. Patient came to the ER due to weakness. Patient refused labs. Claimed to be with twins and homeless. Physical therapy eval completed. No skill indicated. Per previous medical record search, patient was inpatient psych 11/2023. Patient was homeless and claiming to be at that time. Met with patient in regards to discharge planning. Offered to get assistance to [employer] back to active. Patient claims her [employer] is active and unwilling to work with [facility] Financial Counselor. Correction list and [facility] Resource Book provided. Payton SIERRA and Cheyenne GONZALEZ aware. Continue to monitor for d/c needs.
[2024-10-30 13:46] VITALS: BP 000/00; PULSE 0; RESP 18; TEMP -17.7; TEMP 0; O2SAT 0
== END 2024-10-30 13:58 | disposition home or self-care (01) ==
PROVIDERS: Emergency Provider Emergency Medicine
DX: F22 Delusional disorders (principal); M79.672 Pain in left foot; M79.671 Pain in right foot; Z59.89 Other problems related to housing and economic circumstances
CPT/HCPCS: 97161; 99284

== ENCOUNTER 2024-11-13 07:33 | Outpatient (AMB) | payer MEDICARE, SELFPAY ==
--- OUTSIDE RECORDS SUMMARY | 2024-11-13 06:40 | XMS_ITS | Encounter Summary ---
Author Organization [facility] Address [address] [place] [address] Care Team Providers Care Photogravure Press Operator Name Role Phone Kaveh Silveira MD Primary Care Provider [phone] Reason for Visit * Reason Comments Leg Pain BLE pain Encounter Details Date Type Department Care Team (Late st Contact Info) Description 11/13/2024 6:40 AM EDT - 11/13/2024 7:18 AM EDT Emergency [facility] Emergency [address] [place] [id number] Rohan Joy MD [address] [place] [address] Pseudocyesis (Primary Dx); Pain in both feet Discharge Disposition: Home or Self Care Social History Tobacco Use Types Packs/Day Years Used Date Smoking Tobacco: Former Alcohol Use Standard Drinks/Week Comments Yes 0 (1 standard drink = 0.6 oz pur e alcohol) Comments Unknown Sex and Gender Information Value Date Recorded Sex Assigned at Not on file Legal Sex Female 12:56 AM EST Gender Identity Not on file Sexual Orientation Straight 11/04/2024 9: 04 PM EDT documented as of this encounter Last Filed Vital Signs Vital Sign Reading Time Taken Comments Blood Pressure 125/74 11/13/2024 6:04 AM EDT Pulse 95 11/13/2024 6:04 AM EDT Temperature 36.6 C (97.9 F) 11/13/2024 6:04 AM EDT Respiratory Rate 18 11/13/2024 6:04 AM EDT Oxygen Saturation 100% 11/13/2024 6:04 AM EDT Inhaled Oxygen Concentration - - Weight 136 kg (300 lb) 11/13/2024 6:04 AM EDT Height 170.8 cm (5' 7.24 ) 11/13/2024 6:04 AM ED T Body Mass Index 46.65 11/13/2024 6:04 AM EDT documented in this encounter Discharge Instructions * Discharge Instructions* Rohan Joy MD - 11/13/2024 6:29 AM EDT Your work-up in the emergency department showed no findings concerning enough to require admission to the hospital. You should still follow-up with a primary care physician as soon as possible to review your labs/imaging and discuss any non-emergent findings from your visit today that may require further testing as an outpatient. If you have been referred to see a specialist, contact information is provided above. Call as soon as possible to schedule follow up. If you were prescribed any medications, please take as directed. Community resources for showers in [place], [place] [facility] (Clinical & Support Options) Address: [address] [place] [address] Details: Offers showers at their daytime resource center. Also provides meals, laundry, and case management. [facility] [place] Address: [address] [place] [address] Details: Drop-in center with shower facilities. It's recommended to call ahead for current hours and availability. [facility] Address: [address] [place] [address] or Details: Provides free showers for men ages 18 and older who are staying overnight in the emergencyshelter. Guests must call ahead to reserve a bed. * Attachments The following attachments cannot be sent through Care Everywhere. * Foot Pain (Hungarian) documented in this encounter Discharge Disposition Disposition Code Departure Means Destination Comment s Home or Self Care Patient discharged by other staff member documented in this encounter Progress Notes * Gayle Singleton RN - 11/13/2024 5:57 AM EDT Pt reports BILAT leg pain, Reports open wounds on both legs, worse on right. Reporting tillman on lower legs. Unable to visualize in triage. Wants a medical shower . Also reports she is withtwins and I and them have not nearly eaten enough and they are hungry * Rohan Joy MD - 11/13/2024 5:51 AM EDT Patient Name: Viri Medeiros Date and Time of Assessment: 6:17 AM EDT 11/13/24 Patient : 1970 Patient's PMD: Kaveh Silviera MD Chief Complaint Patient presents with ??? Leg Pain BLE pain HPI: 54 yo female with PMH of Pseudocyesis, Chronic foot pain, Schizophrenia, Housing instability presents to the ED for bilateral foot pain. Also reports that she thinks she is . She is post-menopausal. Had a negative testhere earlier this month with the same complaint. PHYSICAL EXAM: Visit Vitals BP 125/74 (BP Location: Left arm, Patient Position: Sitting) Pulse 95 Temp 36.6 ??C (97.9 ??F) (Oral) Resp 18 Ht 1.708 m (67.24 ) Wt 136 kg (300 lb) SpO2 100% BMI 46.65 kg/m?? Smoking Status Former BSA 2.41 m?? General: NAD, calm, cooperative Cardio: RRR Resp: no respiratory distress Abd: Soft, non-tender, non-distended Ext: No edema, calluses on feet, venous insufficiency Neuro: AAOx3, no focal deficits MEDICAL DECISION MAKING: Patient presents today for foot pain On initial evaluation, patient is in no acute distress, disheveled Physical exam notable for no signs of infection or wounds on feet. Differential diagnosis: Foot pain Pseudocyesis Initial Plan: Based on the patient's presentation today, she will not require any acute interventions. She is requesting food, will provide a breakfast and discharge home. Please see ED course for my interpretation of lab results and imaging which I independently reviewed. Updates in patient care are also noted there accordingly. EMERGENCY DEPARTMENT COURSE AND TREATMENT: Available prior records were reviewed. Patient history and allergies reviewed. Nursing note reviewed. The diagnostic results contained in this document reflect the information available to the physician at the time of the patient encounter. Final results, when completed, will be found in the patient's hospital chart. Medications - No data to display Clinical Impressions as of 11/13/24 0629 Pseudocyesis Pain in both feet Procedures Rohan Joy MD 11/13/24 06 Rohan Joy MD 11/13/24 0628 documented in this encounter Plan of Treatment Not on file documented as of this encounter Visit Diagnoses Diagnosis Pseudocyesis- Primary Conversion disorder Pain in both feet documented in this encounter Care Teams Photogravure Press Operator Relationship Specialty Start Date End Date Kaveh Silveira MD [address] [place] [address] [place] PCP - General 03/29/07 documented as of this encounter
--- OUTSIDE RECORDS SUMMARY | 2024-11-13 07:35 | XMS_ITS | Clinical Summary ---
Author Organization [facility] Address [address] [place] [address] Care Team Providers Care Target Man Name Role Phone Sb Peters Primary Care Provider [phone] Allergies Active Allergy Reactions Criticality Noted Date Comments Chicken 03/05/2021 Oxybutynin 03/05/2021 Shellfish 03/05/2021 Tramadol Swelling 01/10/2018 Tramadol 03/05/2021 Bupropion Other (See Comments) 01/10/2018 hallucination Medications Medication Sig Dispensed Refills Start Date End Date Status ziprasidone (GEODON) 40 MG capsule Take 40 mg by mouth 2 (two) times a day with meals. 0 Active tolterodine (DETROL LA) 4 MG 24 hr capsule Take 4 mg by mouth daily. 0 Active zolpidem (AMBIEN) 5 MG tablet Take 10 mg by mouth every night at bedtime as needed for sleep. 0 Active ARIPiprazole (ABILIFY) 15 MG tabletIndications:Sc hizophrenia Take 0.5 tablets (7.5 mg total) by mouth every night at bedtime. 30 tablet 0 03/11/2021 Active folic acid (FOLVITE) tablet 1 mgIndications:supple ment Take 1 tablet (1 mg total) by mouth daily. 30 tablet 0 03/12/2021 Active nicotine (NICODERM CQ) 21 MG/24HRIndications:N icotine Dependence Place 1 patch onto the skin daily. 28 patch 0 03/12/2021 Active nicotine polacrilex (NICORETTE) 2 MG gumIndications:Nicot ine Dependence Use as directed 1 each (2 mg total) in the mouth or throat every hour as needed for smoking cessation (Nicotine craving). 100 each 0 03/11/2021 Active thiamine mononitrate (THIAMINE) 100 MG tabletIndications:marroquin pplement Take 1 tablet (100 mg total) by mouth daily. 30 tablet 0 03/12/2021 Active Active Problems Problem Noted Date Diagnosed Date Schizophrenia 03/05/2021 Social History Tobacco Use Types Packs/Day Years Used Date Smoking Tobacco: Never Smokeless Tobacco: Never Alcohol Use Standard Drinks/Week Comments Never 0 (1 standard drink = 0.6 oz pur e alcohol) Sex and Gender Information Value Date Recorded Sex Assigned at Female 04/10/2021 10:14 AM EST Gender Identity Female 04/10/2021 10:14 AM EST Sexual Orientation Straight 04/10/2021 10 :14 AM EST Job Start Date Occupation Industry Not on file Not on file Not on file Last Filed Vital Signs Vital Sign Reading Time Taken Comments Blood Pressure 136/73 03/11/2021 8:26 AM EST Pulse 83 03/11/2021 8:26 AM EST Temperature 36.5 C (97.7 F) 03/11/2021 8:26 AM EST Respiratory Rate 18 03/11/2021 8:26 AM EST Oxygen Saturation 97% 03/11/2021 8:26 AM EST Inhaled Oxygen Concentration - - Weight 180.1 kg (397 lb) 03/05/2021 10:45 PM EST Height 167.6 cm (5' 6 ) 03/05/2021 10:45 PM EST Body Mass Index 64.08 03/05/2021 10:45 PM EST Plan of Treatment Not on file Advance Directives For more information, please contact: [phone] Latest Code Status on File Code Status Date Activated Date Inactivated Comments Full Code 03/05/2021 10:37 PM 03/11/2021 6:29 PM Th is code status was ascertained in the following way: per unit protocol. Care Teams Target Man Relationship Specialty Start Date End Date Sb Peters: [phone] [address] [facility] [place] [address] PCP - General Family Medicine 01/10/18
--- OUTSIDE RECORDS SUMMARY | 2024-11-13 07:35 | XMS_ITS | Clinical Summary ---
Author Organization [facility] Address [facility] [place] [address] Care Team Providers Care Clothing Trades Workers Name Role Phone None Primary Care Provider Unavailabl e Allergies Active Allergy Reactions Criticality Noted Date Comments Oxybutynin Other (See Comments) 03/11/2020 Unknown reaction or severity, info taken from patient's file from [facility] Reported in paper: hallucination Shellfish Containing Products Other (See Comments) 03/11/2020 Unknown reaction or severity, info taken from [facility] reported admission/hx and physical report Tramadol Hcl Other (See Comments) 03/11/2020 Unknown severity or reaction type, info taken from [facility] Medications No known medications Active Problems No [...] Plan / Payer (Ef fective 2020-Present) Name:Viri Mnauel Relation to Subscriber:Self Name:Viri Manuel Payer ID:Not on file Group ID:Not on file Type:Not on file Address: [address] [id number] [place]NA[place] MEDICARE [place] Care Teams Clothing Trades Workers Relationship Specialty Start Date End Date None None PCP - General 02/28/20
--- OUTSIDE RECORDS SUMMARY | 2024-11-13 07:35 | XMS_ITS | Clinical Summary ---
Author Organization [facility] Address [address] [place] [address] Phone Care Team Providers Care Launchman Name Role Phone Kaveh Silveira MD Primary Care Provider [phone] Allergies Active Allergy Reactions Criticality Noted Date Comments Erythromycin Unknown 11/04/2024 Oxybutynin Unknown 11/04/2024 Medications lidocaine (LIDODERM) 5 % patch Apply 1 patch topically 1 (one) time each day for 10 days. Remove & discard patch within 12 hours or as directed by . 10 each 11/05/19 25 Discontinu ed(Entered in Error) Encounters Date Type Department Care Team Description 11/13/2024 6:40 AM EDT - 11/13/2024 7:18 AM EDT Emergency [facility] Emergency [address] [place] [phone] Rohan Joy MD Pseudocyesis (Primary Dx); Pain in both feet Discharge Disposition: Home or Self Care 11/04/2024 9:29 PM EDT - 11/04/2024 9:58 PM EDT Emergency [facility] Emergency [address] [place] [phone] Garry Sterling MD Bilateral foot pain (Primary Dx); Pseudocyesis; Callus of foot Discharge Disposition: Home or Self Care 10/29/2024 2:23 AM EDT - 10/29/2024 2:42 AM EDT [facility] Emergency [address] [place] [phone] Foot pain, bilateral (Primary Dx); Homelessness Discharge Disposition: Home or Self Care 10/26/2024 11:39 AM EDT - 10/28/2024 7:45 PM EDT Emergency [facility] Emergency [address] [place] [phone] John Bermeo MD Gordon, Ruth, MD Damri, MD Maria Dolores Caba Jasmine, DO Lyle, David C, MD Fainsod, Joshua, MD Delusional disorder ([facility] V24, [facility] V28) (Primary Dx); Delusion ([facility] V24, [facility] V28) Discharge Disposition: Home or Self Care 10/26/2024 4:46 AM EDT - 10/26/2024 8:14 AM EDT Emergency [facility] Emergency [address] [place] [phone] Myke Culp MD Psychosis, unspecified psychosis type ([facility] V24, [facility] V28) (Primary Dx); Generalized weakness; Callus of foot Discharge Disposition: Home or Self Care from Last 3 Months Medical History Medical History Date Comments No known health problems Family History Relation Name Status Comments Father Alive not sure since pt was adopted Mother Alive Social History Tobacco Use Types Packs/Day Years Used Date Smoking Tobacco: Former Alcohol Use Standard Drinks/Week Comments Yes 0 (1 standard drink = 0.6 oz pur e alcohol) Comments Unknown Sex and Gender Information Value Date Recorded Sex Assigned at Not on file Legal Sex Female 12:56 AM EST Gender Identity Not on file Sexual Orientation Straight 11/04/2024 9: 04 PM EDT Obstetrics History Last Filed Vital Signs Vital Sign Reading [...] Mass Index 46.65 11/13/2024 6:04 AM EDT Plan of Treatment Health Maintenance Due Date Last Done Comments Breast Cancer Screening 1971 Hepatitis B Vaccines (1 of 3 - 19+ 3-dose series) 1990 Cervical Cancer Screening: P ap Smear 01/21/1992 Pneumococcal Vaccine: 50+ Ye ars (1 of 1 - PCV) 2021 Zoster Vaccines (1 of 2) 2021 Colorectal Cancer Screening: Colonoscopy 02/14/2022 HIV Screening 02/14/2022 Hepatitis C Screening 02/14/2022 Social Influencers of Health Screening 02/14/2022 Depression Screening 03/14/2024 COVID-19 Vaccine (1 - 2023-2 5 season) 2024 Influenza Vaccine (#1) 2024 Cholesterol Screening (Lipid Panel) 03/07/2026 03/07/2021 DTaP,Tdap,and Td Vaccines (2 - Td or Tdap) 08/11/2027 08/10/2017 HIB Vaccines Aged Out No longer eligi ble based on patient's age to complete this topic HPV Vaccines Aged Out No longer eligi ble based on patient's age to complete this topic Hepatitis A Vaccines Aged Out No long er eligible based on patient's age to complete this topic IPV Vaccines Aged Out No longer eligi ble based on patient's age to complete this topic MMR Vaccines Aged Out No longer eligi ble based on patient's age to complete this topic Meningococcal ACWY Vaccine Aged Out N o longer eligible based on patient's age to complete this topic Meningococcal B Vaccine Aged Out No l onger eligible based on patient's age to complete this topic RSV Immunization Patients Un julia 20 months Aged Out No longer eligible b ased on patient's age to complete this topic Varicella Vaccines Aged Out No longer eligible based on patient's age to complete this topic Procedures Procedure Name Priority Date/Time Associated Diagnosis Comments ECG ANNOTATED 10/30/2024 POC , URINE DIAGNOSTIC STAT 10/26/2024 2:42 PM EDT METHADONE SCREEN, URINE STAT 10/26/2024 2:42 PM EDT PHENCYCLIDINE, URINE STAT 10/26/2024 2:42 PM EDT BUPRENORPHINE SCREEN, URINE STAT 10/26/2024 2:42 PM EDT DRUG ABUSE SCREEN 8A PANEL, URINE STAT 10/26/2024 2:42 PM EDT ECG 12-LEAD STAT 10/26/2024 12:05 PM EDT from Last 3 Months Results * ECG-Annotated (10/30/2024) us Provider Onbase MD ECG ORDERABLES Final Result * Drug abuse screen 8a panel, urine (10/26/2024 2:42 PM EDT) Amphetamine Screen, Ur Negative Negative LAB CHEMISTRY METHOD 10/26/2024 3:22 PM EDT [facility] Comment:Certain OTC medicati ons containing ephedrine, phenylephrine, pseudoephedrine and phenylpropanolamine can cause false positive results. Barbiturate Screen, Ur Negative Negative LAB CHEMISTRY METHOD 10/26/2024 3:22 PM EDT [facility] Benzodiazepine Screen, Ur Negative Negative LAB CHEMISTRY METHOD 10/26/2024 3:22 PM EDT [facility] Cocaine Screen, Ur Negative Negative LAB CHEMISTRY METHOD 10/26/2024 3:22 PM [facility] Opiate Screen, Ur Negative Negative LAB CHEMISTRY METHOD 10/26/2024 3:22 PM T [facility] Cannabinoid (THC) Screen, Ur Negative Negative LAB CHEMISTRY METHOD 10/26/2024 3:22 PM T [facility] Comment:Specimens from patie nts taking pantoprazole sodium (Protonix) have been shown to produce false positive results. Oxycodone Screen, Ur Negative Negative LAB CHEMISTRY METHOD 10/26/2024 3:22 PM T [facility] Fentanyl, Ur Negative Negative LAB CHEMISTRY METHOD 10/26/2024 3:22 PM [facility] Urine Urine specimen obtained by clean catch procedure / Unknown Non-blood Collection / Unknown 10/26/2024 2:42 PM EDT 10/26/2024 2:46 PM EDT [facility] - 10/26/2024 3:22 PM EDT Assay cutoffs: Amphetamines 1000 ng/mL Barbiturates 200 ng/mL Benzodiazepines 200 ng/mL Cocaine 300 ng/mL Fentanyl 1 ng/mL Opiates 300 ng/mL Oxycodone 100 ng/mL THC 50 ng/mL Semi-quantitative assay for screening purposes only. Unconfirmed screening result should not be used for non-medical purposes. *ALTERNATE METHOD CONFIRMATION DONE UPON REQUEST ONLY* John Bermeo MD LAB URINE ORDERABLES Final Resu lt Performing Organization Address [facility] de Phone Number [facility] [address] [place] [address], [place] [phone] * Buprenorphine screen, urine (10/26/2024 2:42 PM EDT) Buprenorphine Screen Urine Negative Negative LAB CHEMISTRY METHOD 10/26/2024 3:18 PM EDT [facility] Urine Urine specimen obtained by clean catch procedure / Unknown Non-blood Collection / Unknown 10/26/2024 2:42 PM EDT 10/26/2024 2:46 PM EDT [facility] - 10/26/2024 3:18 PM EDT Assay cutoff 5 ng/mL Semi-quantitative assay for screening purposes only. Unconfirmed screening result should not be used for non-medical purposes. *ALTERNATE METHOD CONFIRMATION DONE UPON REQUEST ONLY* John Bermeo MD LAB URINE ORDERABLES Final Resu lt Performing Organization Address [facility] de Phone Number [facility] [address] [place] [address], [place] [phone] * Methadone, urine (10/26/2024 2:42 PM EDT) Methadone Screen, Urine Negative Negative LAB CHEMISTRY METHOD 10/26/2024 3:18 PM EDT [facility] Comment: Assay cutoff 300 ng/mL Semi-quantitative assay for screening purposes only. Unconfirmed screening result should not be used for non-medical purposes. *ALTERNATE METHOD CONFIRMATION DONE UPON REQUEST ONLY* Urine Urine specimen obtained by clean catch procedure / Unknown Non-blood Collection / Unknown 10/26/2024 2:42 PM EDT 10/26/2024 2:46 PM EDT John Bermeo MD LAB URINE ORDERABLES Final Resu lt [facility] [address] [place] [address], [place] [phone] * Phencyclidine, urine (10/26/2024 2:42 PM EDT) PCP Scrn, Ur Negative Negative LAB CHEMISTRY METHOD 10/26/2024 3:18 PM EDT [facility] Comment: Assay cutoff 25 ng/mL Semi-quantitative assay for screening purposes only. Unconfirmed screening result should not be used for non-medical purposes. *ALTERNATE METHOD CONFIRMATION DONE UPON REQUEST ONLY* Urine Urine specimen obtained by clean catch procedure / Unknown Non-blood Collection / Unknown 10/26/2024 2:42 PM EDT 10/26/2024 2:46 PM EDT John Bermeo MD LAB URINE ORDERABLES Final Resu lt [facility] [address] [place] [address], [place] [phone] * POC , urine manually resulted (10/26/2024 2:42 PM EDT) HCG, Ur POC Negative Negative POC hCG Int QC Pass? Yes Yes Urine Urine specimen obtained by clean catch procedure / Unknown 10/26/2024 2:42 PM EDT us John Bermeo MD POINT OF CARE TEST ENTER/EDIT O RDERABLES Final Result * ECG 12 lead (10/26/2024 12:05 PM EDT) Ventricular Rate ECG 83 BPM GEMUSE Atrial Rate 83 BPM GEMUSE P-R Interval 134 ms GEMUSE QRS Duration 92 ms GEMUSE Q-T Interval 370 ms GEMUSE QTc 434 ms GEMUSE P Wave [place] 66 degrees GEMUSE R [place] 51 degrees GEMUSE T [place] 37 degrees GEMUSE ECG Interpretation Normal sinus rhythm Normal ECG When compared with ECG of 05-MAR-2021 08:30, No significant change was found Confirmed by MD KACEY, DONNIE ([id number]) on 10/26/2024 10:47:12 PM GEMUSE 10/26/2024 12:0 5 PM EDT 10/26/2024 10:47 PM EDT us John Bermeo MD ECG ORDERABLES Final Result GEMUSE from Last 3 Months Insurance MEDICARE Care Teams Launchman Relationship Specialty Start Date End Date Kaveh Silveira MD [address] [place], [place] PCP - General 03/29/07
--- OUTSIDE RECORDS SUMMARY | 2024-11-13 07:35 | XMS_ITS | Clinical Summary ---
Author Organization [facility] Address [address] [place] [phone] Phone Care Team Providers Care Obstetrical Nurse Name Role Phone Pcp, Not Required Primary [...] to discharge then 5) Dispo: Likely to [facility], pt declining alternatives 6) Psychiatric: a. Encourage [...] 2021 ZOSTER VACCINES (1 of 2) 2021 INFLUENZA VACCINE (#1) 2024 COVID-19 VACCINE (1 - 2023-2 5 season) 2024 SCREENING FOR DIABETES 05/23/2025 05/23/2022 LIPID PANEL [...] topic Medical Devices Not on file Insurance [facility] MEDICARE PART A & B GENERIC COMMERCIAL [place] MED[place] GENERIC COMMERCIAL Member Subscriber Plan / Payer (Ef fective 2015-Present) Name:Viri Medeiros Relation to Subscriber:Self Name:Viri Medeiros Payer ID:Not on file Group ID:Not on file Type:Indemnity Address: [place] [id number] [facility] PART A & B GENERIC COMMERCIAL [facility] Address: [address] [address] [facility] MEDICARE PART A & B GENERIC COMMERCIAL [facility] Address: [address] [place] [address] [place] MEDICARE PART A & B GENERIC COMMERCIAL [facility] PART A & B GENERIC COMMERCIAL [facility] Address: [place] [address] Advance Directives For more information, please contact: [phone] (9AM - 5PM [facility], Tuesday-Tuesday) * Full Code (Latest Code Status on File) Date Activated Date Inactivated Comments 05/19/2022 2:29 PM Question Answer Comments Code Status Confirmed With: Other (specify below ) Code Discussion Comments: presumed Care Teams Obstetrical Nurse Relationship Specialty Start Date End Date Pcp, Not Required [address] [place] [address], [place] [address] PCP - General 05/14/22 Additional Source Comments The information contained in this document represents components of the legal health record. It is not the complete legal health record.[facility]
[2024-11-13 07:43] VITALS: BP 100/54; PULSE 96; RESP 16; TEMP 36.7; O2SAT 96; BMI 54.9
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
== END 2024-11-13 09:18 | disposition home or self-care (01) ==
PROVIDERS: Visit Provider Physician Assistant Medical
DX: R21 Rash and other nonspecific skin eruption (principal); F20.9 Schizophrenia, unspecified

== ENCOUNTER 2024-11-13 09:42 | Emergency (ER) | payer SELFPAY ==
[2024-11-13 09:52] VITALS: BP 133/61; PULSE 90; RESP 18; TEMP 36.4; O2SAT 98; BMI 56.4
--- NOTE | 2024-11-13 10:00 | MHC.EDTECH ---
This pct attempted to draw labs on this patient, this patient refused blood work ands states it goes against her denominational
--- NOTE | 2024-11-13 10:47 | ED.GENADULT ---
HPI - General Adult General Chief complaint: Skin/Abscess/Foreign Body Stated complaint: Rash Time Seen by Provider: 11/13/24 10:46 Source: patient Mode of arrival: ambulatory Limitations: no limitations History of Present Illness ED Provider: evelyn brooks HPI narrative: 54-year-old female here today complaining of a rash. States she has a rash on her breast and on her inner thighs and on her lower legs. Patient past medical history known psych history. She came here today and she would like to take a shower. She woke up after napping on the road she states that she has this rash now. Past medical history delusional ideas diabetes schizoaffective disorder bipolar. Patient is well-known to the emergency department. Patient had triage is refusing any blood work. And states that she will not take any pills her medication. She is hungry and she would like a shower Related Data Previous Rx's ?Medication ?Instructions ?Recorded fluconazole 100 mg tablet 100 mg PO DAILY #7 tabs 11/13/24 fluconazole 150 mg tablet 150 mg PO Q3D #2 tabs 11/13/24 miconazole nitrate 2 % topical 1 appl topical BID #85 grams 11/13/24 powder (Lotrimin AF) Allergies Allergy/AdvReac Type Severity Reaction Status Date / Time oxybutynin Allergy Unknown Hallucinati Verified 11/13/24 09:54 ons tramadol Allergy Unknown Swelling/Hi Verified 11/13/24 09:54 ves tramadol Allergy Unknown edema, Uncoded 10/29/24 22:09 hives, sob Review of Systems Review of Systems: Constitutional : No Fever, No Chills ENT/Mouth : No sore throat, No Rhinorrhea Eyes: No Eye Pain, No Swelling, No Redness Cardiovascular : No Chest Pain, No SOB Respiratory : No Cough, No Sputum Gastrointestinal : No Nausea, No Vomiting, No Diarrhea, No abdominal Pain Genitourinary : No Dysuria, No Hematuria Musculoskeletal : No joint pain, No Myalgias, No Joint Swelling Skin : No Skin Lesions, positive skin rash Neuro : No Weakness, No Numbness, No Headache All other systems reviewed and are negative PMFSH Past Medical History Medical History Delusions Paranoid Social History Social History (Reviewed 08/19/25 @ 02:29 by AVA Jolley Household Members: None Household Members Other:: 3 Housing: Homeless Do you presently have visiting nurse or other home services: No Unable to assess alcohol history related to: Refusing to respond Alcohol intake: former Patient Tobacco Use Status: Former Tobacco user Second Hand Smoke Exposure: No Substance Use Type: Unknown Advance Directives: No Advance Directives Information Provided: No service: No Sexual orientation: Straight/Heterosexual Physical Exam ED Vital Signs: Vital Signs - 24 hr 11/13/24 09:52 11/13/24 13:18 11/13/24 13:29 Temperature 97.6 F 98.9 F Pulse Rate 90 89 Respiratory Rate 18 18 Blood Pressure 133/61 147/78 H Pulse Oximetry 98 96 93 Oxygen Delivery Method Room Air Room Air Room Air 11/13/24 13:43 Temperature 98.9 F Pulse Rate 89 Respiratory Rate 18 Blood Pressure 147/78 H Pulse Oximetry 96 Oxygen Delivery Method Room Air BMI result Body Mass Index 56.4 Appearance: Alert. Oriented X3. No acute distress. Eyes: Pupils equal, round and reactive to light. Multiple decayed teeth ENT: Pharynx normal. Neck: Normal inspection. Neck supple. CVS: Normal heart rate and rhythm. Pulses normal. Respiratory: No respiratory distress. Breath sounds normal. Abdomen: Soft and nontender. non distender normal BS Skin: Skin warm bilateral rash noted on lower extremities that is warm and red. She has also a rash on his skin folds and on her abdomen she has small 1 x 1 abscess of training on her abdomen she has a rash noted that is already here her breasts bilaterally. Foul odor. No purulent discharge noted no vesicles noted poor hygiene Extremities: No lower extremity edema. No calf ttp FROM of extemities Neuro: Oriented X 3. 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 She has what looks to be a small abscess on her abscess draining she has what looks to be like early cellulitis on her lower extremities and yeast infection underneath her breast and in her groin area. Patient is refusing to have her labs drawn she is refusing to take any medication pills. She states that she wants to take a shower. Case management was consulted and she was given an address on [facility] in his [place] where she can take it for a shower. She will be given food here. She will use the powder under her breasts but she will use it in her groin area. I discussed with her in length that she needs antibiotics at this time and the concern for the infection to go from her skin into her bloodstream. Patient declines that she is going to take any antibiotics. I will have the patient sign out against medical advice . Differential Diagnosis Differential Diagnoses: The differential diagnosis associated with the presentation includes (Abscess Cellulitis Donna schizophrenia homeless) Discharge Plan Discharge Clinical Impression: Cellulitis, Abscess of skin or subcutaneous tissue, Donna albicans infection Patient Disposition: Left Against Medical Advice Instructions: Yeast Infection (ED) Prescriptions: New fluconazole 100 mg tablet 100 mg PO DAILY Qty: 7 0RF miconazole nitrate [Lotrimin AF] 2 % powder 1 appl topical BID Qty: 85 3RF No Action fluconazole 150 mg tablet 150 mg PO Q3D Qty: 2 0RF Rx Instructions: may repeat second dose 72 hrs after first dose if symptoms persist Interventions: ED Discharge Assessment Last Done: 11/13/24 13:43 Discharge Date/Time: 11/13/24 13:43 Print Language: Citizen [place]
--- NOTE | 2024-11-13 11:19 | MHC.EDTECH ---
Patient refused to have blood drawn. Patient stated having blood drawn is against her yarsanism.
--- NOTE | 2024-11-13 11:49 | PC.NURSE ---
SARAHI childers aware pt is refusing to have lab work drawn
[2024-11-13 13:18] VITALS: BP 147/78; PULSE 89; RESP 18; TEMP 37.2; O2SAT 96
[2024-11-13 13:29] VITALS: O2SAT 93
--- NOTE | 2024-11-13 13:30 | PC.NURSE ---
Addendum entered by Sol Montelongo RN 11/13/24 13:40: Pt ambulated out of ED with steady gait and d/c paperwork in hand. Original Note: Pt informed of d/c. Declined to review d/c paperwork or instructions.
[2024-11-13 13:43] VITALS: BP 147/78; PULSE 89; RESP 18; TEMP 37.2; O2SAT 96
== END 2024-11-13 13:43 | disposition left against medical advice (07) ==
PROVIDERS: Emergency Provider Emergency Medicine; PCP Nurse Practitioner Family
DX: B37.2 Candidiasis of skin and nail (principal); R21 Rash and other nonspecific skin eruption; L03.90 Cellulitis, unspecified; Z53.29 Procedure and treatment not carried out because of patient's decision for other reasons
CPT/HCPCS: 99212; 99282; 99283

== ENCOUNTER 2024-12-16 22:27 | Emergency (ER) | payer SELFPAY ==
--- OUTSIDE RECORDS SUMMARY | 2024-12-13 22:31 | XMS_ITS | Encounter Summary ---
Author Organization [facility] Address [address] [place] [address] Care Team Providers Care Experience Design Director Name Role Phone Kaveh Silveira MD Primary Care Provider [phone] Reason for Visit * Reason Comments Back Pain Encounter Details Date Type Department Care Team (Late st Contact Info) Description 12/13/2024 10:31 PM EDT - 12/14/2024 1:03 AM EDT Emergency [facility] Emergency [address] [place] [address] Malingering (Primary Dx); Candidal intertrigo Discharge Disposition: Home or Self Care Social [...] Sign Reading Time Taken Comments Blood Pressure - - Pulse - - Temperature - - Respiratory Rate - - Oxygen Saturation - - Inhaled Oxygen Concentration - - Weight 119 kg (263 lb) 12/14/2024 1:03 AM EDT Height 170.2 cm (5' 7 ) 12/14/2024 1:03 AM EDT Body Mass Index 41.19 12/14/2024 1:03 AM EDT documented in this encounter Discharge Instructions * Discharge Instructions* LISA Horner - 12/13/2024 10:54 PM EDT You were seen today for evaluation of lower back pain and a rash throughout your body. Your lower back pain is most likely muscular in nature, you can take ibuprofen for relief of this. You can take ibuprofen 600 mg every 6 hours for relief. You can also apply warm or cool compresses to the area for 20 minutes at a time. Do not use directly on the skin. Your rash is most consistent with a yeast infection of the skin. This is caused by excessive moisture between the folds of your skin. You have been provided nystatin cream that will help with this. Applied to the folds and try to keep the areas dry and free of moisture-this will help heal the rash. We talked about the resources in the community and you are instructed to return during the daytime if you wish to speak to a neonatal social worker. * Attachments The following attachments cannot be sent through Care Everywhere. * Donna Dermatitis (Honduran) documented in this encounter Medications at Time of Discharge nystatin (MYCOSTATIN) cream Apply to affected area 2 times daily 15 g 12/13/2024 01/12/2025 documented as of this encounter Ordered Prescriptions Prescription Sig Dispense Quantity Refills Last Filled Start Date End Date nystatin (MYCOSTATIN) cream Apply to affected area 2 times daily 15 g 12/13/2024 documented in this encounter Discharge Disposition Disposition Code Departure Means Destination Comment s Home or Self Care documented in this encounter Progress Notes * Tutu Cooper RN - 12/13/2024 10:31 PM EDT C/o chronic back pain. EMS states pt is homeless and occasionally needs mcc/food, could benefit from social work case manager. * LISA Horner - 12/13/2024 10:21 PM EDT HPI Chief Complaint Patient presents with ??? Back Pain HPI This is a 54-year-old female well-known to this facility presenting today for evaluation of lower back pain that occurred just prior to arrival. She reports that she was taking a long walk on [address] when she suddenly felt tired, her feet hurt so she had to lower herself to the ground. She denies any head strike or loss of consciousness. She denies any sciatica symptoms or lower extremity pain. She reports that is localized to the lower back, she states that she does have a history of chronic back pain that waxes and wanes in nature and her symptoms today are consistent with this. No history of viral symptoms or fevers. Adamantly denies any alcohol, drug use. She states that she often bounces from ER to ER because she does not feel like she is heard. In addition to this she states that she hangs out in the ER so that she could find friends to sleep on the couch. She is currently experiencing homelessness. Of note she also reports a beefy red rash within the folds of her skin-this is in her intravenous areas most notably around the groin. She denies any urinary symptoms. [place] Coma Scale Score: 15 Patient History Medical History[1] Surgical History[2] Family History[3] Social History Tobacco Use ??? Smoking status: Former ??? Smokeless tobacco: Not on file Substance Use Topics ??? Alcohol use: Yes ??? Drug use: No Review of Systems Review of Systems Pertinent positives and negatives as documented in HPI Physical Exam ED Triage Vitals Temp Pulse Resp BP -- -- -- -- SpO2 Temp src Heart Rate Source Patient Position -- -- -- -- BP Location FiO2 (%) -- -- Physical Exam Constitutional: General: She is not in acute distress. Appearance: She is obese. She is not ill-appearing, toxic-appearing or diaphoretic. Cardiovascular: Rate and Rhythm: Normal rate. Pulses: Normal pulses. Heart sounds: No murmur heard. No friction rub. No gallop. Skin: Comments: There is a beefy erythematous rash within her and dryness areas throughout her body. No active discharge or open wounds appreciated. No cellulitic changes Neurological: Mental Status: She is alert. ED Course & MDM Clinical Impressions as of 12/13/24 2333 Candidal intertrigo Malingering Medical Decision Making This is a 54-year-old female well-known to this facility presenting today for evaluation of lower back pain and rash. On physical exam she appears well and is in no acute distress. Patient openly reports that she is looking for housing and floats from ER to ER looking to make friends so that she could sleep with her couch. At this time patient is malingering for mcc. On exam she does have a notable candidal rash in the instructions areas. She was given nystatin cream hereas well as a prescription. Patient was also given a meal and cleaned up warm bath wipes. She was given some ibuprofen 600 mg for relief of her back pain and nystatin cream for her candidal rash. There were no emergent findings on exam. On reevaluation patient states that she does not wish to leave and wants to stay to sleep here until the morning. Determinants of health considered including housing, follow-up, social and financial support. Patient is well versed in the resources in the community. Patient deemed appropriate for discharge and advised to come back during the daytime if they wish to meet with the neonatal social worker. Procedures LISA Horner 12/13/24 9138 [1] Past Medical History: Diagnosis Date ??? No known health problems [2] No past surgical history on file. [3] No family history on file. LISA Horner 12/13/24 1481 Cosigned by Myke Culp MD at 12/14/2024 9:45 PM EDT Associated attestation - Myke Culp MD - 12/14/2024 9:45 PM EDT I was available for consult in real time on shift and if asked my input in care is as outlined by the documentation below by me. If not documented, then I did not participate in the care of this patient and have reviewed the chart as written. Myke Culp MD documented in this encounter Plan of Treatment Not on file documented as of this encounter Visit Diagnoses Diagnosis Malingering- Primary Person feigning illness Candidal intertrigo Candidiasis of skin and nails documented in this encounter Active and Recently Administered Medications Times are shown in EDT. Scheduled Medication Order 12/12/2024 12/13/2024 12/14/2024 ibuprofen (ADVIL,MOTRIN) tablet 600 mg 600 mg, oral, Once, On [place] 12/13/24 at 2255, For 1 dose, Administer with food or milk to decrease GI upset 2255 (Not Given - Provider: Joan Smith RN - Reason: Patient/Resident/Agent refused - education provided ) nystatin (MYCOSTATIN) cream Topical, Once, On [place] 12/13/24 at 2315, For 1 dose 2255 (Not Given - Provider: Joan Smith RN - Reason: Patient/Resident/Agent refused - education provided ) documented in this encounter Orders Medications Ordered That Volodymyr ht Not Have Been Administered Count Last Ordered Date First Ordered Date ibuprofen (ADVIL,MOTRIN) tablet 600 mg 1 nystatin (MYCOSTATIN) cream 1 12/13/2024 documented in this encounter Care Teams Experience Design Director Relationship Specialty Start Date End Date Kaveh Silveira [facility] [address] [facility] [place] PCP - General 03/29/07 documented as of this encounter
--- NOTE | 2024-12-16 | ECG_ITS ---
Test Reason : CP Blood Pressure : */* mmHG Vent. Rate : 96 BPM Atrial Rate : 96 BPM P-R Int : 132 ms QRS Dur : 92 ms QT Int : 348 ms P-R-T Axes : 61 45 39 degrees QTcB Int : 439 ms Normal sinus rhythm Normal ECG When compared with ECG of 02-Apr-2022 12:45, No significant change was found Referred By: Generic ED Physician Electronically Signed By: VASQUEZ CONN MD
[2024-12-16 23:14] VITALS: BP 109/48; PULSE 95; RESP 14; TEMP 36.9; O2SAT 96
[2024-12-16 23:19] VITALS: BP 109/48; PULSE 99; RESP 18; TEMP 36.9; O2SAT 99; BMI 53.9
--- OUTSIDE RECORDS SUMMARY | 2024-12-17 00:34 | XMS_ITS | Clinical Summary ---
Author Organization [facility] Address [address] [place] [address] Care Team Providers Care Nuisance Wildlife Control Operator Name Role Phone Sb Peters Primary Care Provider [phone] Allergies Active Allergy Reactions Criticality Noted Date [...] Advance Directives For more information, please contact: [phone] Latest Code Status on File Code Status Date Activated Date Inactivated Comments Full Code 03/05/2021 10:37 PM 03/11/2021 6:29 PM Th is code status was ascertained in the following way: per unit protocol. Care Teams Nuisance Wildlife Control Operator Relationship Specialty Start Date End Date Sb Peters: [phone] [address] [facility] [place] [address] PCP - General Family Medicine 01/10/18
--- OUTSIDE RECORDS SUMMARY | 2024-12-17 00:34 | XMS_ITS | Clinical Summary ---
Author Organization [facility] Address [facility] [place] [address] Care Team Providers Care Betting Agency Counter Clerk Name Role Phone None Primary Care Provider Unavailabl e Allergies Active Allergy Reactions Criticality Noted Date Comments Oxybutynin Other (See Comments) 03/11/2020 Unknown reaction or severity, info taken from patient's file from [facility] Reported in paper: hallucination Shellfish Containing Products Other (See Comments) 03/11/2020 Unknown reaction or severity, info taken from [facility] reported admission/hx and physical report Tramadol Hcl Other (See Comments) 03/11/2020 Unknown severity or reaction type, info taken from [facility] Medications No known medications Active [...] of 2) 2021 Covid-19 Vaccine (1 - season) 2024 Influenza (Flu) vaccine (1 o f 1 - Influenza standard series) 11/12/2024 Insurance [place] Member Sub[place] Plan / Payer (Ef fective 2020-Present) Name:Viri Manuel Relation to Subscriber:Self Name:Viri Manuel Payer ID:Not on file Group ID:Not on file Type:Not on file Address: [address] [id number] MANAGED MEDICARE [place]ARE GENERIC Care Teams Betting Agency Counter Clerk Relationship Specialty Start Date End Date None None PCP - General 02/28/20
--- OUTSIDE RECORDS SUMMARY | 2024-12-17 00:34 | XMS_ITS | Clinical Summary ---
Author Organization [facility] Address [address] [place] [address] Phone Care Team Providers Care Semiconductor Wafers Etch Operator Name Role Phone Kaveh Silveira MD Primary Care Provider [phone] Allergies Active Allergy Reactions Criticality Noted Date Comments Erythromycin Unknown 11/04/2024 Oxybutynin Unknown 11/04/2024 Medications nystatin (MYCOSTATIN) cream Apply to affected area 2 times daily 15 g 12/13/2024 01/13/20 25 Active Encounters Date Type Department Care Team Description 12/13/2024 10:31 PM EDT - 12/14/2024 1:03 AM EDT Emergency [facility] Emergency [address] [place] [phone] Malingering (Primary Dx); Candidal intertrigo Discharge Disposition: Home or Self Care 11/25/2024 1:27 AM EDT - 11/25/2024 1:59 AM EDT [facility] Emergency [address] [place] [phone] Malingering (Primary Dx) Discharge Disposition: Home or Self Care 11/13/2024 6:40 AM EDT - 11/13/2024 7:18 AM EDT [facility] Emergency [address] [place] [phone] Rohan Joy MD Pseudocyesis (Primary Dx); Pain in both feet Discharge Disposition: Home or Self Care 11/04/2024 9:29 PM EDT - 11/04/2024 9:58 PM EDT [facility] Emergency [address] [place] [phone] Garry Sterling MD Bilateral foot pain (Primary Dx); Pseudocyesis; Callus of foot Discharge Disposition: Home or Self Care 10/29/2024 2:23 AM EDT - 10/29/2024 2:42 AM EDT Emergency [facility] Emergency [address] [place] [phone] Foot pain, bilateral (Primary Dx); Homelessness Discharge Disposition: Home or Self Care 10/26/2024 11:39 AM EDT - 10/28/2024 7:45 PM EDT Emergency [facility] Emergency [address] [place] [address] [phone] John Bermeo MD Gordon, Ruth, MD Damri, MD Maria Dolores Caba Jasmine, DO Lyle, David C, MD Fainsod, Joshua, MD Delusional disorder (CMS/HCC V24, CMS/HCC V28) (Primary Dx); Delusion (CMS/HCC V24, CMS/HCC V28) Discharge Disposition: Home or Self Care 10/26/2024 4:46 AM EDT - 10/26/2024 8:14 AM EDT Emergency [facility] Emergency [address] [place] [phone] Myke Culp MD Psychosis, unspecified psychosis type (CMS/HCC V24, CMS/HCC V28) (Primary Dx); Generalized weakness; Callus of [...] Sign Reading Time Taken Comments Blood Pressure 134/73 11/25/2024 1:38 AM EDT Pulse 87 11/25/2024 1:38 AM EDT Temperature 36.8 C (98.2 F) 11/25/2024 1:38 AM EDT Respiratory Rate 18 11/25/2024 1:38 AM EDT Oxygen Saturation 99% 11/25/2024 1:38 AM EDT Inhaled Oxygen Concentration - - Weight 119 kg (263 lb) 12/14/2024 1:03 AM EDT Height 170.2 cm (5' 7 ) 12/14/2024 1:03 AM EDT Body Mass Index 41.19 12/14/2024 1:03 AM EDT Plan of Treatment Health Maintenance Due Date Last Done Comments Breast Cancer Screening 1971 Colorectal Cancer Screening: Colonoscopy 1971 Hepatitis B Vaccines (1 of 3 - 19+ 3-dose series) 1990 Cervical Cancer Screening: P ap Smear 01/21/1992 Pneumococcal Vaccine: 50+ Ye ars (1 of 1 - PCV) 2021 Zoster Vaccines (1 of 2) 2021 HIV Screening 02/14/2022 Hepatitis C Screening 02/14/2022 Social Influencers of Health Screening 02/14/2022 Depression Screening 03/14/2024 COVID-19 Vaccine (1 - 2023-2 5 season) 2024 Influenza Vaccine (#1) 2024 Cholesterol Screening (Lipid Panel) 03/07/2026 03/07/2021 DTaP,Tdap,and Td Vaccines (2 - Td or Tdap) 08/11/2027 08/10/2017 RSV Immunization Adult Patie nts (1 - 1-dose 75+ series) 2046 HIB Vaccines Aged Out No longer eligi [...] LAB CHEMISTRY METHOD 10/26/2024 3:22 PM EDT [facility] Comment:Certain OTC medicati ons containing ephedrine, phenylephrine, pseudoephedrine and phenylpropanolamine can cause false positive results. Barbiturate Screen, Ur Negative Negative LAB CHEMISTRY METHOD 10/26/2024 3:22 PM EDT [facility] Benzodiazepine Screen, Ur Negative Negative LAB CHEMISTRY METHOD 10/26/2024 3:22 PM EDT [facility] Cocaine Screen, Ur Negative Negative LAB CHEMISTRY METHOD 10/26/2024 3:22 PM EDT [facility] Opiate Screen, Ur Negative Negative LAB CHEMISTRY METHOD 10/26/2024 3:22 PM EDT [facility] Cannabinoid (THC) Screen, Ur Negative Negative LAB CHEMISTRY METHOD 10/26/2024 3:22 PM EDT [facility] Comment:Specimens from patie nts taking pantoprazole sodium (Protonix) have been shown to produce false positive results. Oxycodone Screen, Ur Negative Negative LAB CHEMISTRY METHOD 10/26/2024 3:22 PM EDT [facility] Fentanyl, Ur Negative Negative LAB CHEMISTRY METHOD 10/26/2024 3:22 PM EDT [facility] Urine Urine specimen obtained by clean catch procedure / Unknown Non-blood Collection / Unknown 10/26/2024 2:42 PM EDT 10/26/2024 2:46 PM EDT [facility] - 10/26/2024 3:22 PM EDT Assay [...] MD LAB URINE ORDERABLES Final Resu lt [facility] [address] [place] [address], * Buprenorphine screen, urine (10/26/2024 2:42 PM EDT) Buprenorphine Screen Urine Negative Negative LAB CHEMISTRY METHOD 10/26/2024 3:18 PM EDT [facility] Urine Urine specimen obtained by clean catch procedure / Unknown Non-blood Collection / Unknown 10/26/2024 2:42 PM EDT 10/26/2024 2:46 PM EDT [facility] - 10/26/2024 3:18 PM EDT Assay cutoff 5 ng/mL Semi-quantitative assay for screening purposes only. Unconfirmed screening result should not be used for non-medical purposes. *ALTERNATE METHOD CONFIRMATION DONE UPON REQUEST ONLY* us John Bermeo MD LAB URINE ORDERABLES Final Resu lt Performing Organization Address [facility] Co de Phone Number [facility] [address] [place] [address], [place] [phone] * Methadone, urine (10/26/2024 2:42 PM EDT) Methadone Screen, Urine Negative Negative LAB CHEMISTRY METHOD 10/26/2024 3:18 PM EDT [facility] Comment: Assay cutoff 300 ng/mL Semi-quantitative assay for screening purposes only. Unconfirmed screening result should not be used for non-medical purposes. *ALTERNATE METHOD CONFIRMATION DONE UPON REQUEST ONLY* Urine Urine specimen obtained by clean catch procedure / Unknown Non-blood Collection / Unknown 10/26/2024 2:42 PM EDT 10/26/2024 2:46 PM EDT us John Bermeo MD LAB URINE ORDERABLES Final Resu lt Performing Organization Address [facility] Co de Phone Number [facility] [address] [place] [address], [place] [phone] * Phencyclidine, urine (10/26/2024 2:42 PM EDT) PCP Scrn, Ur Negative Negative LAB CHEMISTRY METHOD 10/26/2024 3:18 PM EDT [facility] Comment: Assay cutoff 25 ng/mL Semi-quantitative assay for screening purposes only. Unconfirmed screening result should not be used for non-medical purposes. *ALTERNATE METHOD CONFIRMATION DONE UPON REQUEST ONLY* Urine Urine specimen obtained by clean catch procedure / Unknown Non-blood Collection / Unknown 10/26/2024 2:42 PM EDT 10/26/2024 2:46 PM EDT us John Bermeo MD LAB URINE ORDERABLES Final Resu lt [facility] [address] [place] [address], [place] [phone] * POC , urine manually resulted (10/26/2024 2:42 PM EDT) HCG, Ur POC Negative Negative POC hCG Int QC Pass? Yes Yes Urine Urine specimen obtained by clean catch procedure / Unknown 10/26/2024 2:42 PM EDT John Bermeo MD POINT OF CARE TEST ENTER/EDIT O RDERABLES Final Result * ECG 12 lead (10/26/2024 12:05 PM EDT) Ventricular Rate ECG 83 BPM GEMUSE Atrial Rate 83 BPM GEMUSE P-R Interval 134 ms GEMUSE QRS Duration 92 ms GEMUSE Q-T Interval 370 ms GEMUSE QTc 434 ms GEMUSE P Wave [place] 66 degrees GEMUSE R [place] 51 degrees GEMUSE T [place] 37 degrees GEMUSE ECG Interpretation Normal sinus rhythm Normal ECG When compared with ECG of 05-MAR-2021 08:30, No significant change was found Confirmed by MD KACEY, DONNIE ([id number]) on 10/26/2024 10:47:12 PM GEMUSE 10/26/2024 12:0 5 PM EDT 10/26/2024 10:47 PM EDT John Bermeo MD ECG ORDERABLES Final Result Performing Organization Address City/[facility]/ZIP Co de Phone Number GEMUSE from Last 3 Months Insurance MEDICARE Care Teams Semiconductor Wafers Etch Operator Relationship Specialty Start Date End Date Kaveh Silveira MD [address] [facility] [place] PCP - General 03/29/07
--- NOTE | 2024-12-17 02:31 | ED.GENADULT ---
HPI - General Adult General Chief complaint: General Medical Stated complaint: Delfina Draper: Malaise weird energy thru body Time Seen by Provider: 12/17/24 00:43 Source: patient and EMS Mode of arrival: EMS Limitations: no limitations History of Present Illness ED Provider: Dr. Hope Miller HPI narrative: 54-year-old female with extensive psychiatric history, housing insecurity and diabetes presenting with vague complaints from the check of the [facility]. Patient stated that she was walking down the aisle at [facility] and felt as though ?there was an earthquake and she was feeling some kind of [place] energy that made her feel off?. Reports that she had been feeling well prior to that. Admits to being hungry. She has issues with housing and food insecurity. Denies SI or HI. No visual or auditory hallucinations. States ?I feel like the metal inside of this room is giving off a [place] her G that I do not like and I would like to sit in the hallway?. She has no other complaints at this time. Related Data Previous Rx's ?Medication ?Instructions ?Recorded fluconazole 100 mg tablet 100 mg PO DAILY #7 tabs 11/13/24 fluconazole 150 mg tablet 150 mg PO Q3D #2 tabs 11/13/24 miconazole nitrate 2 % topical 1 appl topical BID #85 grams 11/13/24 powder (Lotrimin AF) Allergies Allergy/AdvReac Type Severity Reaction Status Date / Time oxybutynin Allergy Unknown Hallucinati Verified 12/16/24 23:21 ons tramadol Allergy Unknown Swelling/Hi Verified 12/16/24 23:21 ves tramadol Allergy Unknown edema, Uncoded 12/16/24 23:21 hives, sob Review of Systems Review of Systems: as per HPI, full review of systems performed and negative but for the above mentioned pertinent positives and negatives. PMFSH Past Medical History Medical History Delusions Paranoid Social History Social History Household Members: None Household Members Other:: 3 Housing: Homeless Do you presently have visiting nurse or other home services: No Alcohol intake: former Patient Tobacco Use Status: Former Tobacco user Smoked in Last 30 Days: No Second Hand Smoke Exposure: No Use of substances other than those prescribed or required for medical reasons: No Substance Use Type: Unknown Advance Directives: No Advance Directives Information Provided: No Do you have a plan to hurt others: No Plan service: No Sexual orientation: Straight/Heterosexual Physical Exam ED Exam Exam: GENERAL: Unkempt, no acute distress, BMI 54. SKIN: Normal skin color for ethnicity, warm, dry, candidal rash overlying the bilateral inguinal folds/overlying pannus. HEENT:? Normocephalic, atraumatic, no stridor, posterior oropharynx nonerythematous, dentition intact, EOMI. NECK: Soft, supple, full ROM, midline structures nontender, no step-offs, no deformities, no lymphadenopathy. CHEST: Heart regular rate and rhythm, no murmurs, symmetric chest rise and fall. PULMONARY: Clear to auscultation bilaterally, no labored breathing, no wheezes/rhales/rhonchi. ABDOMINAL: Soft, nondistended, nontender, positive bowel sounds in all quadrants. : Deferred. MUSCULOSKELETAL: Normal tone, full range of motion, no deformities, no peripheral edema. NEURO: Alert and oriented x3, CN II through XII intact, equal strength and sensation bilateral upper and lower extremities, no focal neurologic deficits.? PSYCHIATRIC: Flat affect, poor eye contact, fanciful thinking Vital Signs: Vital Signs - 24 hr 12/16/24 23:14 12/16/24 23:19 Temperature 98.4 F 98.4 F Pulse Rate 95 99 Respiratory Rate 14 18 Blood Pressure 109/48 L 109/48 L Pulse Oximetry 96 99 Oxygen Delivery Method Room Air Room Air BMI result Body Mass Index 53.9 Medical Decision Making Medical Decision Making MDM Narrative: Patient presents with psychologic complaints. Differential diagnosis includes suicidal ideations, homicidal ideations, depression, anxiety, mood disorder, decompensated mental illnesses such as schizophrenia or bipolar disorder, medication noncompliance, among many others. Patient appears well today. Mostly looking for a place to sleep tonight as well as a shower. Requesting food. Given towels to clean up, food as requested. I do not feel she is at risk for harm today. Stable for discharge to prison. Differential Diagnosis Differential Diagnoses: The differential diagnosis associated with the presentation includes (as above) Independent Historian Clinical information obtained from an independent historian. History obtained from or confirmed by: EMS External Record Review External record reviewed: Inpatient record Chronic Conditions Patient?s care impacted by: Diabetes and Other (schizoaffective disorder) Social Determinants Patient?s care significantly limited by Social Determinants of Health including: Inadequate housing, Problems related to primary support group and Other Social Determinant of Health Discharge Plan Discharge Clinical Impression: Delusions, Paresthesias Patient Disposition: Home, Self-Care Instructions: Paresthesia (ED) Additional Instructions: Continue to drink plenty of fluids and rest as needed. Return to the ER with any new or worsening symptoms. Follow up with your primary care doctor as soon as possible. If you do not have a primary care physician, please call the [facility] at [phone] to establish a new primary care physician. While waiting to establish a new primary care physician, you can call our [facility] at [phone] for non-emergency needs. Prescriptions: No Action fluconazole 100 mg tablet 100 mg PO DAILY Qty: 7 0RF miconazole nitrate [Lotrimin AF] 2 % powder 1 appl topical BID Qty: 85 3RF fluconazole 150 mg tablet 150 mg PO Q3D Qty: 2 0RF Rx Instructions: may repeat second dose 72 hrs after first dose if symptoms persist Interventions: ED Discharge Assessment Last Done: 12/17/24 06:46 Discharge Date/Time: 12/17/24 07:21 Print Language: Cypriot
[2024-12-17 06:35] VITALS: BP 109/48; PULSE 99; RESP 18; TEMP 36.9; O2SAT 99
[2024-12-17 06:46] VITALS: BP 109/48; PULSE 99; RESP 18; TEMP 36.9; O2SAT 99
== END 2024-12-17 07:21 | disposition home or self-care (01) ==
PROVIDERS: Emergency Provider Emergency Medicine; PCP Nurse Practitioner Family
DX: F22 Delusional disorders (principal); R20.2 Paresthesia of skin; E11.9 Type 2 diabetes mellitus without complications
CPT/HCPCS: 93005; 99283; 99284

== ENCOUNTER → 2024-12-16 23:34 | Outpatient (BNV) | payer MEDICARE, SELFPAY | PROVIDERS: Emergency Provider Emergency Medicine; PCP Nurse Practitioner Family; Visit Provider Internal Medicine Cardiovascular Disease | DX: R07.9 Chest pain, unspecified (principal) | CPT/HCPCS: 93010 ==

== ENCOUNTER 2025-02-05 23:01 | Emergency (ER) | payer SELFPAY ==
[2025-02-05 23:07] VITALS: BP 152/70; PULSE 85; O2SAT 98; BMI 40.3
--- NOTE | 2025-02-05 23:23 | MHC.EDTECH ---
pt refusing lab work, states its against her synagogue. Provider aware.
[2025-02-05 23:27] LABS: Appearance Urine Clear; Glucose Urine UA >=1000 mg/dL (Negative); PH 6.0 (5.0-9.0); Specific Gravity - Urine >= 1.030 (1.005-1.025); UMIC TRIGGER UACC YES
--- NOTE | 2025-02-05 23:27 | PC.NURSE ---
pt declined blood work stating it is against my caodaism . provider aware.
[2025-02-05 23:28] LABS: UPreg QC Valid YES
--- NOTE | 2025-02-05 23:37 | ED.EXTPRO ---
HPI - Extremity Problem General Chief complaint: Extremity Injury, Upper Stated complaint: Coming from Bus bilat leg pain Time Seen by Provider: 02/05/25 23:07 Source: patient Limitations: other (Decompensated psychiatric illness) History of Present Illness ED Provider: Cindy Goyal PA-C HPI Narrative: 55-year-old female with a history of schizoaffective disorder bipolar type, housing and security, morbid obesity, diabetes, presents with multiple complaints. Patient called for assistance from a bus station secondary to bilateral lower extremity pain. No fall, no trauma, patient complains of ongoing discomfort secondary to ?walking and having to log all of her heavy bags around?. Patient states that she ?needs public assistance for the night, until she can figure things out?. She further explains that she is ? with twins in her 2nd trimester?. When asked who her passenger service representative is, she can not recall, she does not know when her expected due date is. Denies SI or HI. Patient is also refusing labs, she states ?it is against my taoism?. Related Data Home Medications ?Medication ?Instructions ?Recorded ?Confirmed No Known Home Meds 02/06/25 02/06/25 Allergies Allergy/AdvReac Type Severity Reaction Status Date / Time oxybutynin Allergy Unknown Hallucinati Verified 02/05/25 23:10 ons tramadol Allergy Unknown Swelling/Hi Verified 02/05/25 23:10 ves tramadol Allergy Unknown edema, Uncoded 02/05/25 23:10 hives, sob Review of Systems Review of Systems: Unable to obtain, the patient is fixated on her Yes all other systems are reviewed and are negative PMFSH Past Medical History Attestation statement: The following information was validated with the patient. Medical History Delusions Paranoid Social History Social History Household Members: None Household Members Other:: 3 Housing: Homeless Do you presently have visiting nurse or other home services: No Alcohol intake: former Patient Tobacco Use Status: Former Tobacco user Second Hand Smoke Exposure: No Substance Use Type: Unknown Advance Directives: No Advance Directives Information Provided: Yes service: No Sexual orientation: Straight/Heterosexual Physical Exam Vital Signs: Vital Signs: Last Vital Signs Temp 97.9 F 02/06/25 09:27 Pulse 99 02/06/25 09:27 Resp 18 02/06/25 09:27 BP 155/79 H 02/06/25 09:27 Pulse Ox 96 02/06/25 09:27 O2 Del Method Room Air 02/06/25 09:27 BMI result Body Mass Index 40.3 Const: Other: Alert, appears older than stated age, disheveled Orientation/consciousness: patient oriented x3 Resp: Effort & Inspection: normal respiratory effort Cardio: Other: Normal peripheral perfusion, peripheral edema noted Skin: Other: Warm dry no rash Neuro: General: patient oriented x3, gait normal, no focal motor deficits and CN's II-XI intact bilaterally Extrem: Other: The skin of bilateral lower extremities is hyperpigmented, dry with the overlying scale, the skin is thickened, consistent with venous insufficiency/lymphedema, pitting edema noted, underlying erythematous hue as well Psych: Other: Uncooperative, subtly hostile at times, paranoid delusions that she is , insistent that she is Course Course Course Narrative: 106 am Patient continues to refuse labs and point of care Reevaluation(s) Reevaluation #1: Time: 00:20 Date: 02/06/25 Provider: LISA Pozo Patient in physician observation for psychiatric evaluation.? No acute events reported overnight. No current complaints. VS stable.? Patient is in bed search status/pending CARE team evaluation. Will continue to monitor. 9:22 AM 02/06/2025 (Dr. Julien Castañeda): Time: 09:22 Date: 02/06/25 Provider: Julien Castañeda, DO Physician observation ended .Patient has been cleared for discharge by the CARE team. Will follow up as an outpatient. Medical Decision Making Medical Decision Making MDM Narrative: 55-year-old female with a history of schizoaffective disorder bipolar type, housing and security, morbid obesity, diabetes, presents with multiple complaints. Patient called for assistance from a bus station secondary to bilateral lower extremity pain. No fall, no trauma, patient complains of ongoing discomfort secondary to ?walking and having to log all of her heavy bags around?. Patient states that she ?needs public assistance for the night, until she can figure things out?. She further explains that she is ? with twins in her 2nd trimester?. When asked who her passenger service representative is, she can not recall, she does not know when her expected due date is. Denies SI or HI. Patient is also refusing labs, she states ?it is against my taoism?. Problem: Housing and security, diabetes, psychiatric illness History: Per patient I have considered the following differential diagnoses: SI, HI, decompensated psychiatric illness, drug/alcohol intoxication Plan: The patient is essentially here secondary to requiring a place to stay overnight. She is delusional, she is convinced that she is with twins in her 2nd trimester. She is refusing labs. We were able to collect a urine sample, her test is negative, the urine is not infected. The patient has been seen numerous times in the emergency department, with these delusions, I am holding her for the care team, she has decompensated. A drug screen was able to be run it is negative, we will attempt to obtain further labs, we at least need a point of care sugar I have independently reviewed the following tests: Labs: Urine not infected, not , drug screen negative POC Differential Diagnosis Differential Diagnoses: The differential diagnosis associated with the presentation includes See MDM Admission/Observation Consideration of admission/observation: Escalation of care including admission/observation considered Consult Healthcare Provider Management of the patient was discussed with: Behavioral Health Provider Care team Lab Data [facility] Lab Attestation statement: I reviewed the patient's lab results. Labs: Lab Results 02/05/25 Range/Units 23:15 Urine Color Yellow Urine Appearance Clear Urine pH 6.0 (5.0-9.0) Ur Specific Seaview >= 1.030 H (1.005-1.025) Urine Protein Negative (Neg-Trace) mg/dL Urine Glucose (UA) >=1000 H (Negative) mg/dL Urine Ketones Negative (Negative) mg/dL Urine Blood Negative (Negative) Urine Nitrite Negative (Negative) Ur Leukocyte Esterase Negative (Negative) Urine RBC 0-2 (0-2) /HPF Urine WBC 0-5 (0-5) /HPF Ur Squamous Epith Cells 0-2 (0-2) /HPF Urine Bacteria None Seen (None Seen) Hyaline Casts 0-2 (0-2) /LPF Urine Test NEGATIVE (NEGATIVE) Urine Opiates Screen Not Detected (Not Detect) Ur Buprenorphine Scrn Not Detected (Not Detect) ng/mL Ur Oxycodone Screen Not Detected (Not Detect) ng/mL Urine Methadone Screen Not Detected (Not Detect) ng/mL Urine Fentanyl Screen Not Detected (Not Detect) Ur Barbiturates Screen Not Detected (Not Detect) Ur Phencyclidine Scrn Not Detected (Not Detect) Ur Amphetamines Screen Not Detected (Not Detect) U Benzodiazepines Scrn Not Detected (Not Detect) Urine Cocaine Screen Not Detected (Not Detect) U Marijuana (THC) Screen Not Detected (Not Detect) Discharge Plan Discharge Clinical Impression: Delusions Patient Disposition: Home, Self-Care Additional Instructions: You were seen in our Emergency Department today for treatment of a behavioral health issue. It is important after your visit that you follow up with either your behavioral health provider or a primary care doctor within 7 days.? If you have trouble finding a therapist you can reach out to [address] [phone] The National Suicide and Crisis Lifeline can be reached 7 days a week 24 hours a day.? Call 988 to speak with someone.? Return for any worsening symptoms or concerns such as thoughts of self harm or harm to others. Please call 911 if you feel your mental health is worsening.? Prescriptions: No Action No Known Home Meds Interventions: ED Discharge Assessment Last Done: 02/06/25 09:27 Discharge Date/Time: 02/06/25 10:07 Print Language: Jordanian
[2025-02-05 23:40] LABS: Cannabinoid Screen Urine Not Detected (Not Detect)
[2025-02-05 23:42] VITALS: BP 128/60; PULSE 84; RESP 18; TEMP 36.8; O2SAT 98
--- NOTE | 2025-02-05 23:53 | PC.NURSE ---
provider filled out Section paper work, security advised to do climate change risk assessor and secure belongings.
--- NOTE | 2025-02-05 23:59 | PC.NURSE ---
Verbal report given to Emma DARNELL RN.
--- NOTE | 2025-02-06 00:13 | PC.NURSE ---
pt refused POC, provider aware.
--- NOTE | 2025-02-06 00:27 | PC.NURSE ---
pt refused to answer any of registrations questions.
--- NOTE | 2025-02-06 01:00 | PC.NURSE ---
Received patient on POD. overedge machine operator completed in the MAIN. Presents as delusional and uncooperative with care. Refused bloodwork and POC multiple times stating It's against my episcopalian. LISA Goyal made aware, plan to continue to re-attempt. Patient is insistent that she is currently with twins. Denies SI/HI. Unable to complete full interview questions d/t patient's current level of decompensation. Remains in behavioral control. 15 minute safety checks initiated. Continue plan for f/u labs & CARE TEAM eval.
--- OUTSIDE RECORDS SUMMARY | 2025-02-06 01:36 | XMS_ITS | Clinical Summary ---
Author Organization [facility] Address [address] [place] [address] Care Team Providers Care Under Baster Name Role Phone Sb Peters Primary Care Provider [phone] Allergies Active Allergy Reactions Criticality Noted Date [...] Advance Directives For more information, please contact: [phone] Latest Code Status on File Code Status Date Activated Date Inactivated Comments Full Code 03/05/2021 10:37 PM 03/11/2021 6:29 PM Th is code status was ascertained in the following way: per unit protocol. Care Teams Under Baster Relationship Specialty Start Date End Date Sb Peters: [phone] [address] [facility] D[place]IS[place] Mathis [address] PCP - General Family Medicine 01/10/18
--- OUTSIDE RECORDS SUMMARY | 2025-02-06 01:36 | XMS_ITS | Clinical Summary ---
Author Organization [facility] Address [address] [place] [address] Phone Care Team Providers Care Line Palletizer Name Role Phone Pcp, Not Required Primary [...] to discharge then 5) Dispo: Likely to snf, pt declining alternatives 6) Psychiatric: a. Encourage [...] ears) (1 of 1 - PCV) 2021 RSV VACCINE (1 - Risk 50-74 years 1-dose series) 2021 ZOSTER VACCINES (1 of 2) 2021 INFLUENZA VACCINE (#1) 2024 COVID-19 VACCINE (1 - 2024-2 6 season) 2024 SCREENING FOR DIABETES 05/23/2025 05/23/2022 [...] topic Medical Devices Not on file Insurance [facility] MEDICARE PART A & B GENERIC COMMERCIAL [place] MEDICARE PART A & B GENERIC COMMERCIAL [facility] PART [facility] & B GENERIC COMMERCIAL [facility] MEDICARE PART A & B GENERIC COMMERCIAL [place] MEDICARE PART A & B [employer] [facility] PART A & B GENERIC COMMERCIAL Advance Directives For more information, please contact: [phone] (9AM - 5PM [facility], Tuesday-Tuesday) * Full Code (Latest Code Status on File) Date Activated Date Inactivated Comments 05/19/2022 2:29 PM Question Answer Comments Code Status Confirmed With: Other (specify below ) Code Discussion Comments: presumed Care Teams Line Palletizer Relationship Specialty Start Date End Date Pcp, Not Required [address] [place] [address] PCP - General 05/14/22 Additional Source Comments The information contained in this document represents components of the legal health record. It is not the complete legal health record.[facility]
--- NOTE | 2025-02-06 02:23 | MHC.EDTECH ---
PT REFUSING ALL LAB WORK AND POC. PT STATES IT'S AGAINST MY SABIANISM, YOU CAN'T BREAK MY SKIN. RN AND PROVIDER AWARE.
[2025-02-06 06:20] VITALS: RESP 16
--- NOTE | 2025-02-06 07:31 | PC.NURSE ---
Assumed care of patient at 0645, patient appears to be sleeping this morning, respirations are noted to be even and unlabored. Currently no apparent distress is noted. Per previous RN and notes in the medical record, patient has been refusing blood work and POC pokes due to roman catholic reasons . Plan for continued attempt at blood work and education on why it is necessary for medical treatment. Continue plan of care for CARE team follow up
[2025-02-06 08:13] VITALS: BP 155/79; PULSE 99; RESP 18; TEMP 36.6; O2SAT 96
--- NOTE | 2025-02-06 08:17 | PC.NURSE ---
Patient approached nurses station asking for morning breakfast. This RN attempted to educate pt on need for blood work or at minimum a POC to determine blood sugar. Pt reported to this RN I don't know why everyone thinks I have diabetes, I mean yes my primary care said that I probably have it but I don't take any medicines, nothing unnatural goes in my body . Pt then told this RN I do not let a needle enter my body, I am not getting my blood drawn, it is against my mormon . Pt reports I am luxembourgish, judiasm, JW and judaism, I do not get my blood drawn . This RN acknowledged patient's statement and relayed the importance of having blood work and regular POC checks to which she continued to refuse
[2025-02-06 09:27] VITALS: BP 155/79; PULSE 99; RESP 18; TEMP 36.6; O2SAT 96
--- NOTE | 2025-02-06 09:29 | MHC.CARE ---
Pt does not present as an imminent risk or meet the criteria for a higher level of care. Pt declines referrals for OP services. ED provider in agreement.
== END 2025-02-06 10:07 | disposition home or self-care (01) ==
PROVIDERS: Physician Assistant Medical; Emergency Provider Emergency Medicine
DX: F22 Delusional disorders (principal); F25.0 Schizoaffective disorder, bipolar type; E11.9 Type 2 diabetes mellitus without complications; Z59.02 Unsheltered homelessness; Z88.5 Allergy status to narcotic agent; Z88.8 Allergy status to other drugs, medicaments and biological substances
CPT/HCPCS: 80307; 81001; 81025; 99284; S9485

== ENCOUNTER 2025-02-07 23:31 | Emergency (ER) | payer SELFPAY ==
--- OUTSIDE RECORDS SUMMARY | 2025-02-02 07:59 | XMS_ITS | Continuity of Care Document ---
Author Organization [facility] ter Address [address] [place] [address]- Care Team Providers Care School Superintendent Name Role Phone Fran FORMAN, Sb Allison Primary Care Physician [place] [facility] [place] [id number] Date(s): 02/01/25 - 02/02/[address] [address]- Discharge Disposition: A-D/C Walkout Attending Physician: Not on Staff, Attending MD Admitting Physician: Not on Staff, Admitting MD Referring Physician: Not on Staff, Referring MD Encounter Type: Disch ES Allergies, Adverse Reactions, Alerts Substance Criticality Severity Reaction Reaction Severity Status oxybutynin hallucination Activ e shellfish Active TraMADOL Hydrochloride Active TraMADOL Hydrochloride ER Active Immunizations Given and Recorded Vaccine Date Status Refusal Reason tetanus/diphtheria/pertussis, acel(Tdap) 08/10/17 Recorded Mental Status Mental Status Assessment Assessment Assessment Component Result Effecti ve Date Christianne coma score total 15 Body height 167 02/01/25 Mental Status Assessment Assessment Assessment Component Result Effecti ve Date Christianne coma score total 15 Problem List Condition Confirmation Course Effective Dates Status Health St atus Informant COVID-19 1 Confirmed 03/26/22 Active 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 Severe obesity Confirmed Active Traumatic brain injury Confirmed 5/5/12 Active 1Problem added by Discern Expert Vital Signs Most recent to oldest [Reference Range]: 1 2 Height 167 cm (02/01/25 11:49 PM) 167 cm (02/01/25 10:20 PM) Oxygen Saturation [94-100 %] 98 % (02/01/25 10:20 PM) Pulse Rate [55-90 bpm] 84 bpm (02/01/25 10:20 PM) Blood Pressure [90-138/55-84 mm Hg] 136/ 63mm Hg (02/01/25 10:20 PM) Respiratory Rate [16-30 br/min] 16 br/mi n (02/01/25 10:20 PM) Temperature [96.8-100.4 DegF] 98.4 DegF (02/01/25 10:20 PM) Mode of Delivery (Oxygen) Room air (02/01/25 10:20 PM) Blood pressure sites Arm, left (02/01/25 10:20 PM) Temperature Route Oral (02/01/25 10:20 PM) Social History Social History Type Response Smoking Status Never (less than 100 in lifetime) entered on: 11/28/18 Sex Female Sex Representation Female (finding) Status Currently Patient Care team information Care Team Personnel Name: Pee Whitley RN Position: S RN Member Role: Primary Care Nurse Name: Mimi Gould LPN Position: S RN Member Role: Primary Care Nurse Name: Deepa Molina RN Position: S RN Member Role: Primary Care Nurse Name: Sb Peters NP Position: Reference Physician Member Role: PCP Address: [address] [place] [address] Telecom: Name: Summer Khalil RN Position: S RN Supv Member Role: Primary Care Nurse Name: Andres Avilez CRNA Position: S SN RN Member Role: Primary Care Nurse Address: [address] [place] [address] [place] [address]- Telecom: Name: Sherine Meneses RN Position: S RN Member Role: Primary Care Nurse Name: Justin Patel III, RN Position: [facility] RN Member Role: Primary Care Nurse Name: Hortencia Rogers RN Position: [facility] RN Member Role: Primary Care Nurse Name: Van Mederos RN Position: [facility] RN Member Role: Primary Care Nurse Name: Brooklynn Warner RN Position: [facility] RN Member Role: Primary Care Nurse Name: Isela Lam RN Position: [facility] RN Member Role: Primary Care Nurse Name: Yissel Perera RN Position: [facility] RN Member Role: Primary Care Nurse Name: Renay Cook RN Position: [facility] RN Member Role: Primary Care Nurse Name: Torri Jara RN Position: [facility] RN Member Role: Primary Care Nurse Name: Kayy Bush LPN Position: [facility] RN Member Role: Primary Care Nurse Name: Twan Duron RN Position: [facility] RN Member Role: Primary Care Nurse Name: Demi Crystal Position: [facility] RN Member Role: Primary Care Nurse Name: Tuyet Delarosa RN Position: [facility] Hospital Milk Driver Member Role: Primary Care Nurse Name: An Delarosa RN Position: [facility] RN Member Role: Primary Care Nurse Name: Triny De La Rosa RN Position: [facility] RN Member Role: Primary Care Nurse Name: Frank Ch MD Position: [facility] Physician - Behavioral Health Member Role: Lifetime Consulting Physician Address: [address] [place] [address] Telecom: Care Team Related Persons Name: FATIMAHPRASANNASARA Name: BAY MCINTOSH Name: SULEMA WAKEFIELD Name: PERLITA IVORY Name: PERLITA IVORY OR MELISA Insurance Providers Guarantor name: BENIGNO Health Plan Information #: 1 Payer: ED [employer]ICK REG Payer Identifier: BENIGNO Member Number: [id number] Group Number: Subscriber Identifier: [id number] Relationship to Subscriber: self Coverage Type: Self-pay (Includes applicants for insurance and Medicaid applicants) Coverage Verification Date: BENIGNO Telecom: Address:
--- OUTSIDE RECORDS SUMMARY | 2025-02-03 08:20 | XMS_ITS | Continuity of Care Document ---
Author Organization [facility] ter Address [address] [place] [address]- Care Team Providers Care Wheelchair Rental Clerk Name Role Phone Fran FORMAN, Sb Allison Primary Care Physician [phone] Encounter [facility] [place] ACCT R [id number] Date(s): 02/02/25 - 02/03/[address] [address]- Discharge Disposition: A-D/C Walkout Attending Physician: Not [...] ve Date Christianne coma score total 15 Mental Status Assessment Assessment Assessment Component Result Effecti ve Date Christianne coma score total 15 Problem List Condition Confirmation Course Effective Dates Status Health St at Informant COVID-19 1 Confirmed 03/26/22 Active 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 Severe obesity Confirmed Active Traumatic brain injury Confirmed 07/17/11 Active 1Problem added by Discern Expert Vital Signs Most recent to oldest [Reference Range]: 1 Height 173 cm (02/02/25 10:06 PM) Weight 156.0 kg (02/02/25 10:06 PM) Oxygen Saturation [94-100 %] 95 % (02/02/25 10:06 PM) Pulse Rate [55-90 bpm] 96 bpm *H* (02/02/25 10:06 PM) Body Mass Index [18.5-24.99 kg/m2] 52.12 kg/m2 *H* (02/02/25 10:06 PM) Blood Pressure [90-138/55-84 mm Hg] 133/ 65mm Hg (02/02/25 10:06 PM) Respiratory Rate [16-30 br/min] 17 br/mi n (02/02/25 10:06 PM) Temperature [96.8-100.4 DegF] 98.6 DegF (02/02/25 10:06 PM) Mode of Delivery (Oxygen) Room air (02/02/25 10:06 PM) Blood pressure sites Arm, right (02/02/25 10:06 PM) Temperature Route Oral (02/02/25 10:06 PM) Social History Social History Type Response Smoking Status Never (less than 100 in lifetime) entered on: 11/28/18 Sex Female Sex Representation Female (finding) Status Unknown Patient Care team information Care Team Personnel Name: Pee Whitley RN Position: S RN Member Role: Primary Care Nurse Name: Mimi Gould LPN Position: S RN Member Role: Primary Care Nurse Name: Deepa Molina RN Position: S RN Member Role: Primary Care Nurse Name: Sb Peters NP Position: Reference Physician Member Role: PCP Address: [address] [place] [id number] Telecom: Name: Summer Khalil RN Position: S RN Supv Member Role: Primary Care Nurse Name: Andres Avilez CRNA Position: [facility] RN Member Role: Primary Care Nurse Address: [address] [place] [address] [place] [address]- AT Telecom: Name: Sherine Meneses RN Position: [facility] RN Member Role: Primary Care Nurse Name: Justin Patel III, RN Position: [facility] RN Member Role: Primary Care Nurse Name: Hortencia Rogers RN Position: [facility] RN Member Role: Primary Care Nurse Name: Van Mederos RN Position: [facility] RN Member Role: Primary Care Nurse Name: Brooklynn Warner RN Position: [facility] RN Member Role: Primary Care Nurse Name: Isela Lam RN Position: [facility] RN Member Role: Primary Care Nurse Name: Yissel Perera RN Position: [facility] RN Member Role: Primary Care Nurse Name: Renay Cook RN Position: [facility] RN Member Role: Primary Care Nurse Name: Torri Jara RN Position: [facility] RN Member Role: Primary Care Nurse Name: Kayy Bush LPN Position: [facility] RN Member Role: Primary Care Nurse Name: Twan Duron RN Position: [facility] RN Member Role: Primary Care Nurse Name: Demi Crystal Position: [facility] RN Member Role: Primary Care Nurse Name: Tuyet Delarosa RN Position: [facility] Hospital Busser Member Role: Primary Care Nurse Name: An Delarosa RN Position: [facility] RN Member Role: Primary Care Nurse Name: Triny De La Rosa RN Position: [facility] RN Member Role: Primary Care Nurse Name: Frank Ch MD Position: [facility] Physician - Behavioral Health Member Role: Lifetime Consulting Physician Address: [address] [place] [address] Telecom: Care Team Related Persons Name: SARA ZAVALETA Name: BAY MCINTOSH Name: SULEMA WAKEFIELD Name: PERLITA IVORY Name: PERLITA IVORY OR EMLISA Insurance Providers Guarantor name: BENIGNO Health Plan Information #: 1 Payer: ED [employer] REG Payer Identifier: BENIGNO Member Number: [id number] Group Number: [id number] Subscriber Identifier: [id number] Relationship to Subscriber: self Coverage Type: Self-pay (Includes applicants for insurance and Medicaid applicants) Coverage Verification Date: Telecom: Address:
--- OUTSIDE RECORDS SUMMARY | 2025-02-03 18:55 | XMS_ITS | Continuity of Care Document ---
Author Organization [facility] ter Address [address] [place] [address]- Care Team Providers Care Rigging Loft Repairer Name Role Phone Fran FORMAN, Sb Allison Primary Care Physician [phone] Encounter [facility] [place] [id number] Date(s): 02/03/25 - 02/03/[address] [address]- Discharge Disposition: A-D/C Walkout Attending Physician: Not [...] Status Refusal Reason tetanus/diphtheria/pertussis, acel(Tdap) 08/10/17 Recorded Problem List Condition Confirmation Course Effective Dates Status Health St atus Informant COVID-19 1 Confirmed 03/26/22 Active 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 Severe obesity Confirmed Active Traumatic brain injury Confirmed 07/17/11 Active 1Problem added by Discern Expert Social History Social History Type Response Smoking Status Never (less than 100 in lifetime) entered on: 11/28/18 Sex Female Sex Representation Female (finding) Patient Care team information Care Team Personnel Name: Pee Whitley RN Position: S RN Member Role: Primary Care Nurse Name: Mimi Gould LPN Position: [facility] RN Member Role: Primary Care Nurse Name: Deepa Molina RN Position: S RN Member Role: Primary Care Nurse Name: Sb Peters NP Position: Reference Physician Member Role: PCP Address: [address] [place] [address]- Telecom: Name: Summer Khalil RN Position: [facility] RN Supv Member Role: Primary Care Nurse Name: Andres Avilez CRNA Position: [facility] SN RN Member Role: Primary Care Nurse Address: [address] [place] [address] Department [place] [address]- Telecom: Name: Sherine Meneses RN Position: [facility] RN Member Role: Primary Care Nurse Name: Justin Patel III, RN Position: [facility] RN Member Role: Primary Care Nurse Name: Hortencia Rogers RN Position: [facility] RN Member Role: Primary Care Nurse Name: Van Mederos RN Position: [facility] RN Member Role: Primary Care Nurse Name: Brooklynn Warner RN Position: [facility] RN Member Role: Primary Care Nurse Name: Isela Lam RN Position: [facility] RN Member Role: Primary Care Nurse Name: Yissel Perera RN Position: [facility] RN Member Role: Primary Care Nurse Name: Renay Cook RN Position: [facility] RN Member Role: Primary Care Nurse Name: Torri Jara RN Position: [facility] RN Member Role: Primary Care Nurse Name: Kayy Bush LPN Position: [facility] RN Member Role: Primary Care Nurse Name: Twan Duron RN Position: [facility] RN Member Role: Primary Care Nurse Name: Demi Crystal Position: [facility] RN Member Role: Primary Care Nurse Name: Tuyet Delarosa RN Position: [facility] Hospital Windows Application Packager Member Role: Primary Care Nurse Name: An Delarosa RN Position: [facility] RN Member Role: Primary Care Nurse Name: Triny De La Rosa RN Position: [facility] RN Member Role: Primary Care Nurse Name: Frank Ch MD Position: [facility] Physician - Behavioral Health Member Role: Lifetime Consulting Physician Address: [address] [facility] [place] [address]- Telecom: Care Team Related Persons Name: SARA ZAVALETA Name: BAY MCINTOSH Name: SULEMA WAKEFIELD Name: PERLITA IVORY Name: PERLITA IVORY OR EMLISA Insurance Providers Guarantor name: NA Health Plan Information #: 1 Payer: ED [employer] REG Payer Identifier: NA Member Number: [id number] Group Number: [id number] Subscriber Identifier: NA Relationship to Subscriber: self Coverage Type: Self-pay (Includes applicants for insurance and Medicaid applicants) Coverage Verification Date: BENIGNO Telecom: NA Address:
--- OUTSIDE RECORDS SUMMARY | 2025-02-03 21:29 | XMS_ITS | Continuity of Care Document ---
Author Organization [facility] ter Address [address] [place] [address]- Care Team Providers Care Yarn Carrier Name Role Phone Fran FORMAN, Sb Allison Primary Care Physician Encounter [facility] ACCT R [id number] Date(s): 02/03/25 - 02/03/[address] [address]- Discharge Disposition: A-D/C Walkout Attending Physician: Not [...] recent to oldest [Reference Range]: 1 Height 170 cm (11/23/25 8:57 PM) Weight 156 kg (02/03/25 8:57 PM) Oxygen Saturation [94-100 %] 97 % (02/03/25 8:57 PM) Pulse Rate [55-90 bpm] 82 bpm (02/03/25 8:57 PM) Body Mass Index [18.5-24.99 kg/m2] 53.98 kg/m2 *H* (02/03/25 8:57 PM) Blood Pressure [90-138/55-84 mm Hg] 134/ 64mm Hg (02/03/25 8:57 PM) Respiratory Rate [16-30 br/min] 17 br/mi n (02/03/25 8:57 PM) Temperature [96.8-100.4 DegF] 97.5 DegF (02/03/25 8:57 PM) Mode of Delivery (Oxygen) Room air (02/03/25 8:57 PM) Blood pressure sites Arm, left (02/03/25 8:57 PM) Temperature Route Oral (02/03/25 8:57 PM) Dry Weight 156 kg (02/03/25 8:57 PM) Weight Obtained Via Standing scale (02/03/25 8:57 PM) Dry Weight Obtained Via Standing scale (02/03/25 8:57 PM) Social History Social History Type Response Smoking Status Never (less than 100 in lifetime) entered on: 11/28/18 Sex Female Sex Representation Female (finding) Status Unknown Patient Care team information Care Team Personnel Name: Pee Whitley RN Position: S RN Member Role: Primary Care Nurse Name: Mimi Gould LPN Position: S RN Member Role: Primary Care Nurse Name: eDepa Molina RN Position: S RN Member Role: Primary Care Nurse Name: Sb Peters NP Position: Reference Physician Member Role: PCP Address: [address] [place] [id number] Telecom: Name: Summer Khalil RN Position: S RN Supv Member Role: Primary Care Nurse Name: Andres Avilez CRNA Position: [facility] RN Member Role: Primary Care Nurse Address: [address] [place] [address] Department [place] [address]- Telecom: Name: Sherine Meneses RN Position: [facility] RN Member Role: Primary Care Nurse Name: Justin Patel III, RN Position: [facility] RN Member Role: Primary Care Nurse Name: Hortencia Rogers RN Position: S RN Member Role: Primary Care Nurse Name: Van Mederos RN Position: S RN Member Role: Primary Care Nurse Name: Brooklynn Warner RN Position: [facility] RN Member Role: Primary Care Nurse Name: Isela Lam RN Position: [facility] RN Member Role: Primary Care Nurse Name: Yissel Perera RN Position: [facility] RN Member Role: Primary Care Nurse Name: Renay Cook RN Position: [facility] RN Member Role: Primary Care Nurse Name: Torri Jara RN Position: [facility] RN Member Role: Primary Care Nurse Name: Kayy Bush LPN Position: [facility] RN Member Role: Primary Care Nurse Name: Twan Duron RN Position: [facility] RN Member Role: Primary Care Nurse Name: Demi Crystal Position: [facility] RN Member Role: Primary Care Nurse Name: Tuyet Delarosa RN Position: [facility] Hospital Adult Care Manager Member Role: Primary Care Nurse Name: An Delarosa RN Position: [facility] RN Member Role: Primary Care Nurse Name: Triny De La Rosa RN Position: [facility] RN Member Role: Primary Care Nurse Name: Frank Ch MD Position: [facility] Physician - Behavioral Health Member Role: Lifetime Consulting Physician Address: [address] [place] [address] Health - Child Outpatient [place], [place] [address] Telecom: Care Team Related Persons Name: SARA ZAVALETA Name: BAY MCINTOSH Name: SULEMA WAKEFIELD Name: PERLITA IVORY Name: PERLITA IVORY OR MELISA Insurance Providers Guarantor name: BENIGNO Health Plan Information #: 1 Payer: [employer] Payer Identifier: BENIGNO Member Number: [id number] Group Number: [id number] Subscriber Identifier: [id number] Relationship to Subscriber: self Coverage Type: Self-pay (Includes applicants for insurance and Medicaid applicants) Coverage Verification Date: Telecom: Address:
[2025-02-07 23:38] VITALS: BP 138/75; PULSE 71; RESP 20; TEMP 36.8; O2SAT 98; BMI 53.9
--- NOTE | 2025-02-07 23:53 | ED_ITS ---
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 She denies SI, HI. She comes in with luggage, food, multiple layers on her person. She states it is against her yarsani to obtain blood samples but we are free to get urine samples. She states her legs her as well but I am not allowed to do any workup on them. Clinically they do not appear infected, swollen, she has pulses intact. she states she takes no medications and refuses to put chemicals or sugar into her body. she took EMS transport from [place]. She states she has to people helping her obtain housing. She has no [place] [facility] at this time. MD complaint: other Onset (ago): month(s) Duration: constant History of same: Yes Relieving factors: none Exacerbating factors: other Context: significant life stressor Associated psychiatric symptoms: none Associated symptoms: denies other symptoms Treatments prior to arrival: none Related Data Home Medications ?Medication ?Instructions ?Recorded ?Confirmed No Known Home Meds 02/06/25 02/06/25 Allergies Allergy/AdvReac Type Severity Reaction Status Date / Time oxybutynin Allergy Unknown Hallucinati Verified 02/08/25 00:03 ons tramadol Allergy Unknown Swelling/Hi Verified 02/08/25 00:03 ves tramadol Allergy Unknown edema, Uncoded 02/08/25 00:03 hives, sob Review of Systems Review of Systems: Yes all other systems are reviewed and are negative [facility] Past Medical History Attestation statement: The following information was validated with the patient. Source: old records reviewed Medical History Delusions Paranoid Social History Social History Household Members: None Household Members Other:: 3 Housing: Homeless Do you presently have visiting nurse or other home services: No Alcohol intake: never Patient Tobacco Use Status: Former Tobacco user Smoked in Last 30 Days: No Second Hand Smoke Exposure: No Use of substances other than those prescribed or required for medical reasons: No Substance Use Type: Unknown Advance Directives: No Do you have a plan to hurt others: No Plan Patient : No service: No Sexual orientation: Straight/Heterosexual Physical Exam Vital Signs: Vital Signs: Last Vital Signs Temp 98.3 F 02/07/25 23:38 Pulse 71 02/07/25 23:38 Resp 20 02/07/25 23:38 BP 138/75 02/07/25 23:38 Pulse Ox 98 02/07/25 23:38 O2 Del Method Room Air 02/07/25 23:38 BMI result Body Mass Index 53.9 Appearance: Alert. Oriented X3. No acute distress. disheveled, multiple layers of clothes, unkempt. She comes in with luggage and multiple food items Eyes: Pupils equal, round and reactive to light. ENT: Pharynx normal. atraumatic Neck: Normal inspection. Neck supple. CVS: Normal heart rate and rhythm. Pulses normal. Respiratory: No respiratory distress. Breath sounds normal. Abdomen: Soft and nontender. Skin: Skin warm and dry. Normal skin color. Extremities: No lower extremity edema. venous stasis skin changes Neuro: Oriented X 3. No motor deficit. No sensory deficit. cranial nerve exam not applicable Medical Decision Making Medical Decision Making MDM Narrative: 55-year-old female with past medical history of diabetes, schizoaffective disorder, bipolar type, Who is here with complaints of not having housing as well as bilateral atraumatic leg pain. She refuses any workup other than drug screen. She states doing workup would be against her yarsani. 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 On exam there are no signs of infection and she has pulses intact. I am going to obtain CARE team consult Differential Diagnosis Differential Diagnoses: The differential diagnosis associated with the presentation includes schizoaffective, delusions, unhoused Admission/Observation Consideration of admission/observation: Escalation of care including admission/o bservation considered physician observation started at 23:57 06:50 AM 02/08/2025 (MIKE ): cleared by care team, plan to DC in the morning, this is related to housing issues Consult Healthcare Provider Management of the patient was discussed with: Behavioral Health Provider Lab Data [facility] Lab Attestation statement: I reviewed the patient's lab results. Independent Historian Clinical information obtained from an independent historian. History obtained from or confirmed by: EMS External Record Review External record reviewed: Inpatient record, Outpatient record and Prior outpatient labs Social Determinants Patient?s care significantly limited by Social Determinants of Health including: Inadequate housing, Problems related to primary support group and Unemployment Discharge Plan Discharge Clinical Impression: Delusions Patient Disposition: Home, Self-Care Instructions: Schizoaffective Disorder (ED) Additional Instructions: You were seen in our Emergency Department today for treatment of a behavioral health issue. It is important after your visit that you follow up with either your behavioral health provider or a primary care doctor within 7 days.? If you have trouble finding a therapist you can reach out to [address] [phone] The National Suicide and Crisis Lifeline can be reached 7 days a week 24 hours a day.? Call 988 to speak with someone.? Return for any worsening symptoms or concerns such as thoughts of self harm or harm to others. Please call 911 if you feel your mental health is worsening.? Prescriptions: No Action No Known Home Meds Print Language: Luxembourgish
--- OUTSIDE RECORDS SUMMARY | 2025-02-08 | XMS_ITS | Clinical Summary ---
Author Organization [facility] Address [address] [place] [id number] Phone Care Team Providers Care Metal Grader Name Role Phone Pcp, Not Required Primary [...] to discharge then 5) Dispo: Likely to fpc, pt declining alternatives 6) Psychiatric: a. Encourage [...] topic Medical Devices Not on file Insurance [facility] MEDICARE PART A & B GENERIC COMMERCIAL [place] MED[place] PART A & B GENERIC COMMERCIAL [facility] PART [facility] B GENERIC COMMERCIAL [facility] MEDICARE PART A & B GENERIC COMMERCIAL [place] MEDICARE PART A & B [employer] [facility] A & B GENERIC COMMERCIAL Advance Directives For more information, please contact: [phone] (9AM - 5PM [facility], Tuesday-Tuesday) * Full Code (Latest Code Status on File) Date Activated Date Inactivated Comments 05/19/2022 2:29 PM Question Answer Comments Code Status Confirmed With: Other (specify below ) Code Discussion Comments: presumed Care Teams Metal Grader Relationship Specialty Start Date End Date Pcp, Not Required [address] [place] [id number] PCP - General 05/14/22 Additional Source Comments The information contained in this document represents components of the legal health record. It is not the complete legal health record.[facility]
--- OUTSIDE RECORDS SUMMARY | 2025-02-08 | XMS_ITS | Clinical Summary ---
Author Organization [facility] Address [address] [place] [address] Phone Care Team Providers Care Container Coordinator Name Role Phone Kaveh Silveira MD Primary Care Provider [phone] Allergies Active Allergy Reactions Criticality Noted Date Comments Erythromycin Unknown 11/04/2024 Oxybutynin Unknown 11/04/2024 Medications nystatin (MYCOSTATIN) cream Apply to affected area 2 times daily 15 g 01/13/20 25 Encounters Date Type Department Care Team Description 01/27/2025 1:06 AM EST - 01/27/2025 2:28 AM EST Emergency [facility] Emergency [address] [place] [phone] Malingering (Primary Dx) Discharge Disposition: Home or Self Care 12/13/2024 10:31 PM EDT - 12/14/2024 1:03 AM EDT Emergency [facility] Emergency [address] [place] [phone] Malingering (Primary Dx); Candidal intertrigo Discharge Disposition: Home or Self Care 11/25/2024 1:27 AM EDT - 11/25/2024 1:59 AM EDT Emergency [facility] Emergency [address] [place] [address] Malingering (Primary Dx) Discharge Disposition: Home or Self Care 11/13/2024 6:40 AM EDT - 11/13/2024 7:18 AM EDT Emergency [facility] Emergency [address] [place] [address] Rohan Joy MD Pseudocyesis (Primary Dx); Pain in both feet Discharge Disposition: Home or Self Care from [...] Sign Reading Time Taken Comments Blood Pressure 123/64 01/27/2025 1:21 AM EST Pulse 89 01/27/2025 1:21 AM EST Temperature 36.6 C (97.9 F) 01/27/2025 1:21 AM EST Respiratory Rate 20 01/27/2025 1:21 AM EST Oxygen Saturation 96% 01/27/2025 1:21 AM EST Inhaled Oxygen Concentration - - Weight 158 kg (348 lb 5.2 oz) 01/27/2025 1:21 AM EST Height 170.2 cm (5' 7 ) 01/27/2025 1:21 AM EST Body Mass Index 54.56 01/27/2025 1:21 AM EST Plan of Treatment Health Maintenance Due Date Last Done Comments Breast Cancer Screening 1971 Colorectal Cancer Screening: Colonoscopy 1971 Hepatitis B Vaccines (1 of 3 - 19+ 3-dose series) 1990 Cervical Cancer Screening: P ap Smear 01/21/1992 Pneumococcal Vaccine: 50+ Ye ars (1 of 1 - PCV) 2021 RSV Immunization Adult Patie nts (1 - Risk 50-74 years 1-dose series) 2021 Zoster Vaccines (1 of 2) 2021 HIV Screening 02/14/2022 Hepatitis C Screening 02/14/2022 Social Influencers of Health Screening 02/14/2022 Depression Screening 03/14/2024 COVID-19 Vaccine (1 - 2024-2 6 season) 2024 Influenza Vaccine (#1) 2024 Cholesterol [...] on patient's age to complete this topic Insurance MEDICARE Care Teams Container Coordinator Relationship Specialty Start Date End Date Kaveh Silveira MD [facility] [place], [place] PCP - General 03/29/07
--- OUTSIDE RECORDS SUMMARY | 2025-02-08 | XMS_ITS | Clinical Summary ---
Author Organization [facility] Address [address] [place] [address] Care Team Providers Care Radiological Defense Officer Name Role Phone Sb Peters Primary Care Provider [phone] Allergies Active Allergy Reactions Criticality Noted Date [...] Advance Directives For more information, please contact: [phone] Latest Code Status on File Code Status Date Activated Date Inactivated Comments Full Code 03/05/2021 10:37 PM 03/11/2021 6:29 PM Th is code status was ascertained in the following way: per unit protocol. Care Teams Radiological Defense Officer Relationship Specialty Start Date End Date Sb Peters: [phone] [address] [facility] [place] [address] PCP - General Family Medicine 01/10/18
--- OUTSIDE RECORDS SUMMARY | 2025-02-08 | XMS_ITS | Clinical Summary ---
Author Organization [facility] Address [facility] [place] [address] Care Team Providers Care Hearing Screen Coordinator Name Role Phone None Primary Care Provider Unavailabl e Allergies Active Allergy Reactions Criticality Noted Date Comments Oxybutynin Other (See Comments) 03/11/2020 Unknown reaction or severity, info taken from patient's file from [facility] Reported in paper: hallucination Shellfish Containing Products Other (See Comments) 03/11/2020 Unknown reaction or severity, info taken from [facility] reported admission/hx and physical report Tramadol Hcl Other (See Comments) 03/11/2020 Unknown severity or reaction type, info taken from [facility] Medications No known medications [...] of 2) 2021 Covid-19 Vaccine (1 - 2024- season) 2024 Influenza (Flu) vaccine (1 o f 1 - Influenza standard series) 11/12/2024 Insurance [place]ICAID [place] Member Subscriber Plan / Payer (Ef fective 2020-Present) Name:Viri Manuel Relation to Subscriber:Self Name:Viri Manuel Payer ID:Not on file Group ID:Not on file Type:Not on file Address: [address] [id number] MANAGED MEDICARE [place] GENERIC Care Teams Hearing Screen Coordinator Relationship Specialty Start Date End Date None None PCP - General 02/28/20
--- NOTE | 2025-02-08 00:15 | PC.NURSE ---
called report to Emma SIERRA at this time
--- NOTE | 2025-02-08 00:18 | HO.NURTONUR ---
leg pain is CC. told ems was here 2 days ag for same thing. Homeless. Patient refused to allow ems to do any v/s or put in IV [facility] - she told them she is banned from [facility] and they brought her here. report was called
--- NOTE | 2025-02-08 00:31 | PC.NURSE ---
Received patient. pipe coverer helper completed in the MAIN. Personal belongings stored in POD Supply Room d/t large quantity of items. Presents as calm and cooperative. Patient requested paper and writing utensil to draw a cross and hang in her room. T/w encouraged patient to rest. Provided liquids/warm blankets. Denies SI/HI. Agreeable to alert staff if feeling unsafe. Hygiene is unkempt and malodorous. 15 minute safety checks initiated. Will continue to monitor for safety.
[2025-02-08 07:25] VITALS: BP 138/75; PULSE 71; RESP 20; TEMP 36.8; O2SAT 98
== END 2025-02-08 08:25 | disposition home or self-care (01) ==
PROVIDERS: Emergency Provider Emergency Medicine
DX: F22 Delusional disorders (principal); F25.0 Schizoaffective disorder, bipolar type; M79.604 Pain in right leg; M79.605 Pain in left leg; E11.9 Type 2 diabetes mellitus without complications; Z59.02 Unsheltered homelessness; Z88.5 Allergy status to narcotic agent; Z88.8 Allergy status to other drugs, medicaments and biological substances
CPT/HCPCS: 99284; S9485

== ENCOUNTER → 2025-02-11 09:05 | Outpatient (BNVA) | payer MEDICAID, SELFPAY | DX: R29.898 Other symptoms and signs involving the musculoskeletal system (principal) | CPT/HCPCS: 99212 ==

== ENCOUNTER 2025-02-11 11:19 | Outpatient (AMB) | payer MEDICAID, SELFPAY ==
--- OUTSIDE RECORDS SUMMARY | 2025-02-10 02:10 | XMS_ITS | Continuity of Care Document ---
Author Organization [facility] Address [address] [place] [address]- Care Team Providers Care Tents Assembler Name Role Phone Fran FORMAN, Sb Allison Primary Care Physician [phone] [place] [facility] [place] [id number] Date(s): 02/09/25 - 02/10/[address] [address]- Encounter Diagnosis Homelessness(Final) - 02/10/25 Discharge Disposition: A-D/C Home Attending Physician: Adolfo Gates MD Admitting Physician: Adolfo Gates MD Referring Physician: Not on Staff, Referring [...] Assessment Assessment Component Result Effecti ve Date [place] coma score total 15 Problem List Condition Confirmation Course Effective Dates Status Health St atus Informant COVID-19 1 Confirmed 03/26/22 Active 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 Severe obesity Confirmed Active Traumatic brain injury Confirmed 07/17/11 Active 1Problem added by Discern Expert Vital Signs Most recent to oldest [Reference Range]: 1 Height 170 cm (02/09/25 11:11 PM) Weight 150 kg (02/09/25 11:11 PM) Oxygen Saturation [94-100 %] 99 % (02/09/25 11:11 PM) Pulse Rate [55-90 bpm] 99 bpm *H* (02/09/25 11:11 PM) Body Mass Index [18.5-24.99 kg/m2] 51.9 kg/m2 *H* (02/09/25 11:11 PM) Blood Pressure [90-138/55-84 mm Hg] 133/ 77mm Hg (02/09/25 11:11 PM) Respiratory Rate [16-30 br/min] 16 br/mi n (02/09/25 11:11 PM) Temperature [96.8-100.4 DegF] 97.7 DegF (02/09/25 11:11 PM) Mode of Delivery (Oxygen) Room air (02/09/25 11:11 PM) Blood pressure sites Arm, left (02/09/25 11:11 PM) Temperature Route Oral (02/09/25 11:11 PM) Dry Weight 150 kg (02/09/25 11:11 PM) Weight Obtained Via Patient/family state d (02/09/25 11:11 PM) Dry Weight Obtained Via Patient/family s tated (02/09/25 11:11 PM) Social History Social History Type Response Smoking Status Never (less than 100 in lifetime) entered on: 11/28/18 Sex Female Sex Representation Female (finding) Status Not Patient Care team information Care Team Personnel Name: Pee Whitley RN Position: S RN Member Role: Primary Care Nurse Name: Mimi Gould LPN Position: S RN Member Role: Primary Care Nurse Name: Deepa Molina RN Position: S RN Member Role: Primary Care Nurse Name: Sb Peters NP Position: Reference Physician Member Role: PCP Address: [address] [place] [address] Telecom: Name: Summer Khalil RN Position: S RN Supv Member Role: Primary Care Nurse Name: Andres Avilez CRNA Position: [facility] SN RN Member Role: Primary Care Nurse Address: [address] [facility] Department [place] [address]- Telecom: Name: Sherine Meneses RN Position: [facility] RN Member Role: Primary Care Nurse Name: Justin Patel III, RN Position: [facility] RN Member Role: Primary Care Nurse Name: Hortencia Rogers RN Position: [facility] RN Member Role: Primary Care Nurse Name: Van Mederos RN Position: [facility] RN Member Role: Primary Care Nurse Name: Brooklynn Warner RN Position: [facility] RN Member Role: Primary Care Nurse Name: Isela Lam RN Position: [facility] RN Member Role: Primary Care Nurse Name: Yissel Perera RN Position: [facility] RN Member Role: Primary Care Nurse Name: Renay Cook RN Position: [facility] RN Member Role: Primary Care Nurse Name: Torri Jara RN Position: [facility] RN Member Role: Primary Care Nurse Name: Kayy Bush LPN Position: [facility] RN Member Role: Primary Care Nurse Name: Twan Duron RN Position: [facility] RN Member Role: Primary Care Nurse Name: Demi Crystal Position: [facility] RN Member Role: Primary Care Nurse Name: Tuyet Delarosa RN Position: [facility] Hospital Mechanical Adjuster Member Role: Primary Care Nurse Name: An Delarosa RN Position: [facility] RN Member Role: Primary Care Nurse Name: Triny De La Rosa RN Position: [facility] RN Member Role: Primary Care Nurse Name: Frank Ch MD Position: [facility] Physician - Behavioral Health Member Role: Lifetime Consulting Physician Address: [address] [place] [address] Health - [place] [address]- Telecom: Care Team Related Persons Name: SARA ZAVALETA Name: BAY MCINTOSH Name: SULEMA WAKEFIELD Name: PERILTA IVORY Name: PERLITA IVORY OR MELISA Insurance Providers Guarantor name: BENIGNO Health Plan Information #: 1 Payer: SELF PAY Payer Identifier: NA Member Number: [id number] Group Number: Subscriber Identifier: [id number] Relationship to Subscriber: self Coverage Type: Self-pay (Includes applicants for insurance and Medicaid applicants) Coverage Verification Date: NA Telecom: NA Address: NA
[2025-02-11 11:29] VITALS: BP 126/60; PULSE 94; TEMP 36.6; O2SAT 97
--- NOTE | 2025-02-11 11:29 | MHC.OFFWIV ---
Intake Vital Signs 02/11/25 11:29 Height 5 ft 7 in BMI Reason not done Patient refused/unable BP 126/60 Blood Pressure Location Lt brachial Position Sitting Pulse 94 Pulse Source Pulse Oximeter Temp 97.8 F Temp Source Oral Pulse Oximetry (%) 97 Oxygen Delivery Method Room Air Intake Visit Reasons: EP leg pains Intake Note: pt presents with bilateral leg weakness sometimes feeling they want to give out Patient Tobacco Use Status: Former Tobacco user Allergies oxybutynin Allergy (Unknown, Verified 02/11/25 11:41) Hallucinations tramadol Allergy (Unknown, Verified 02/11/25 11:41) Swelling/Hives tramadol Allergy (Unknown, Uncoded 02/08/25 00:03) edema, hives, sob Do you need a note to return to daycare/school/sports/work: No HPI HPI Comments History of Present Illness Details 55 y/o Female patient presents to the walk-in clinic with bilateral lower extremity weakness and discomfort for the past few weeks. Reports episodes where her legs ?feel like they are giving out? and unable to support her body when walking. Patient is homeless and has been sleeping outdoors in cold weather. Past history significant for morbid obesity, schizophrenia, bipolar disorder, and delusional behavior. She is not currently taking any medications. Patient states she does not take ?scientific medications? due to her pentecostalism beliefs. She also believes she is currently and refuses medications because she feels they could ?harm the baby.? She is open to homeopathic remedies or spiritual care from her ?healer? and plans to ask them for a referral. Patient acknowledges multiple ED/hospital visits this year, stating: ?I go to the hospital for a warm room, bed, and food.? Denies reporting any acute traumatic injuries. [facility] Medical History (Updated 02/11/25 @ 12:19 by Sada Cevallos NP) Lower extremity weakness Delusions Paranoid Social History Household Members: None Household Members Other:: 3 Housing: Homeless Do you presently have visiting nurse or other home services: No Alcohol intake: never Patient Tobacco Use Status: Former Tobacco user Second Hand Smoke Exposure: No Substance Use Type: Unknown service: No Sexual orientation: Straight/Heterosexual Review of Systems Const All systems reviewed & are unremarkable except as noted in HPI and below Physical Exam Vital Signs: Last Vital Signs Temp 97.8 F 02/11/25 11:29 Pulse 94 02/11/25 11:29 BP 126/60 02/11/25 11:29 Pulse Ox 97 02/11/25 11:29 Oxygen Delivery Method Room Air 02/11/25 11:29 Const General: no acute distress, alert, awake and poor hygiene Nutritional Appearance: obese morbidly obese Limitations: behavioral limitations Resp Effort & Inspection: normal respiratory effort Cardio Rate: regular rate Skin Other: B/L Lower Extremities: Areas of erythema, dryness, and mild scaling; with small fissures and excoriations. Hyperpigmentation, particularly around the ankles and lower legs. Visible varicosities, hemosiderin deposits, and thickened skin. Peripheral pulses palpable (DP/PT), capillary refill <2 seconds. Neuro General: moves all extremities Psych Speech and movement: Pressured speech present Affect: Anxious affect present Attitude: cooperative Thought process: Flight of ideas present, Loose association thought process present and Racing thoughts present Thought content: suicidality, no homicidality and Paranoid delusions present Insight: Poor insight present (Psych) Judgement: Poor judgement present (Psych) Assessment & Plan Assessment & Plan (1) Lower extremity weakness: Code(s): R29.898 - Other symptoms and signs involving the musculoskeletal system Plan: Bilateral lower extremity weakness ? likely multifactorial. Consider deconditioning, neuropathy from cold exposure, nutritional deficiencies, poor sleep, obesity, and functional limitation related to mental health. Schizophrenia / bipolar disorder with active delusional beliefs ? untreated; impacting medication adherence and medical decision-making. Medication refusal due to pentecostalism belief and delusional belief. Declined Testing or Lab work today. Mental Health: Encouraged connection with community-based mental health services, crisis teams, or spiritual care providers of her choice. Pt will be connected with [facility] today for an evaluation. Coding Level of Care Code Est Pt Level 4 (20916) Diagnoses Lower extremity weakness R29.898 Time Spent (min) 20
== END 2025-02-11 12:46 | disposition home or self-care (01) ==
PROVIDERS: Visit Provider Nurse Practitioner Family
DX: R29.898 Other symptoms and signs involving the musculoskeletal system (principal)

== ENCOUNTER 2025-02-12 17:07 | Emergency (ER) | payer MEDICARE, MEDICAID, SELFPAY ==
[2025-02-12 17:15] VITALS: PULSE 90; O2SAT 99
[2025-02-12 17:28] VITALS: BP 106/57; PULSE 107; RESP 20; TEMP 36.7; O2SAT 97; BMI 53.3
--- NOTE | 2025-02-12 22:31 | ED_ITS ---
HPI - General Adult General Chief complaint: Extremity Injury, Lower Stated complaint: coming from [facility] with leg pain & weakness Time Seen by Provider: 02/12/25 22:46 Source: patient Mode of arrival: ambulatory Limitations: no limitations History of Present Illness ED Provider: Dr. Aguilar HPI narrative: 55-year-old female who is currently facing housing and security presented to ER today for evaluation for weakness in the legs bilaterally. Describes electric shooting down her legs bilaterally. Patient stated that she is here because she is homeless. She stated that she is . She is unable to take a shower to to housing and security. She is looking for a shower at this time. She does not take any medicine aside naturopathic medicine. Related Data Previous Rx's ?Medication ?Instructions ?Recorded furosemide 20 mg tablet (Lasix) 20 mg PO BID #14 tabs 02/12/25 Allergies Allergy/AdvReac Type Severity Reaction Status Date / Time oxybutynin Allergy Unknown Hallucinati Verified 02/12/25 17:32 ons tramadol Allergy Unknown Swelling/Hi Verified 02/12/25 17:32 ves tramadol Allergy Unknown edema, Uncoded 02/08/25 00:03 hives, sob Review of Systems Review of Systems: Pertinent review of systems as mentioned in HPI. All other system otherwise negative. [facility] Past Medical History [facility] Narrative: Schizoaffective disorder, diabetes Medical History (Updated 02/12/25 @ 22:37 by Jennifer Aguilar DO) Lower extremity weakness Delusions Paranoid Social History Social History Household Members: None Household Members Other:: 3 Housing: Homeless Do you presently have visiting nurse or other home services: No Alcohol intake: never Patient Tobacco Use Status: Former Tobacco user Second Hand Smoke Exposure: No Substance Use Type: Unknown Advance Directives: No Advance Directives Information Provided: No Do you have a plan to hurt others: No Plan service: No Sexual orientation: Straight/Heterosexual Physical Exam ED Exam Exam: General: Pleasant, no distress, interacting appropriately Head: Normacephalic, atraumatic ENT: oral mucosa moist, neck supple, no tracheal deviation Cardiovascular: regular rate, regular rhythm, no murmurs, rubbing, gallops Respiratory: CTAB, no wheeze, rales, rhonchi Extremities: Bilateral lower extremity edema appreciated on exam, pulse identified on bilateral feet Neurological: Awake and alert, no facial droop noted Skin: Warm and dry Psychiatric: Appropriate mood and thoughts Vital Signs: Vital Signs - 24 hr 02/12/25 17:28 02/12/25 22:35 02/12/25 23:13 Temperature 98.0 F 98.3 F Pulse Rate 107 H 104 H Respiratory Rate 20 20 Blood Pressure 106/57 L 144/62 H 144/62 H Pulse Oximetry 97 96 Oxygen Delivery Method Room Air Room Air BMI result Body Mass Index 53.3 Course Course Course Narrative: Jennifer Aguilar, DO 02/12/252232 Medical screening exam performed. Medications Administered Discontinued Medications Generic Name Dose Route Start Last Admin Trade Name Freq PRN Reason Stop Dose Admin Furosemide 20 mg 02/12/25 22:48 02/12/25 23:13 Furosemide 20 Mg Tablet PO 02/12/25 22:49 20 mg ONCE ONE Administration Protocol Medical Decision Making Medical Decision Making [facility] Narrative: 55-year-old female presented hospital today for evaluation of weakness in the legs bilaterally. I suspect this is likely secondary to her the edema in her lower extremity. Discussed with the patient unfortunately we are limited to what we can do to help with her housing and security at this time recommended consulting case management in the outpatient setting. We do not have an available shower at this time. We will plan to give patient a dose of Lasix. We will plan to prescribe patient a course of Lasix to take for her leg swelling. Encouraged her to follow up with her primary care doctor. Patient is agreeable with this plan. Patient will be discharged Differential Diagnosis Differential Diagnoses: The differential diagnosis associated with the presentation includes Leg edema Discharge Plan Discharge Clinical Impression: Leg swelling Patient Disposition: Home, Self-Care Prescriptions: New furosemide [Lasix] 20 mg tablet 20 mg PO BID Qty: 14 0RF Print Language: Kiswahili
[2025-02-12 22:35] VITALS: BP 144/62; PULSE 104; RESP 20; TEMP 36.8; O2SAT 96
[2025-02-12 23:13] VITALS: BP 144/62
[2025-02-12 23:28] VITALS: BP 144/62; PULSE 104; RESP 20; TEMP 36.8; O2SAT 96
== END 2025-02-12 23:32 | disposition home or self-care (01) ==
PROVIDERS: Physician Assistant Medical; Emergency Provider Student in an Organized Health Care Education/Training Program
DX: R60.0 Localized edema (principal); M79.604 Pain in right leg; M79.605 Pain in left leg; Z87.891 Personal history of nicotine dependence
CPT/HCPCS: 99282; 99283

== ENCOUNTER 2025-02-13 22:21 | Emergency (ER) | payer MEDICARE, MEDICAID, SELFPAY ==
--- OUTSIDE RECORDS SUMMARY | 2025-02-09 03:34 | XMS_ITS | Encounter Summary ---
Author Organization [facility] Address [address] [place] [address] Care Team Providers Care Playground Supervisor Name Role Phone Kaveh Silveira MD Primary Care Provider Reason for Visit * Reason Comments [facility] and [facility] Encounter Details Date Type Department Care Team (Late st Contact Info) Description 02/09/2025 3:34 AM EST - 02/09/2025 3:51 AM EST Emergency [facility] Emergency [address] [place] [address] Cold exposure, initial encounter (Primary Dx) Discharge Disposition: Home or Self Care Social [...] PM EDT documented as of this encounter Discharge Instructions * Attachments The following attachments cannot be sent through Care Everywhere. * Hypothermia ([place]) documented in this encounter Discharge Disposition Disposition Code Departure Means Destination Comment s Home or Self [facility] Pt seen and discharged by provider, no nursing care provided by this RN. documented in this encounter Progress Notes * Theron Gu RN - 02/09/2025 3:30 AM EST BEE from [employer] parking lot stating she is homeless and cold. Pt arrives with many bags of luggage. Ambulatory. * LISA Morales - 02/09/2025 3:21 AM EST HPI Chief Complaint [facility] Patient is a 55-year-old homeless female presenting to the emergency department due to cold exposure. Patient has been walking and she is out in the cold is currently in the mid 30s. She requests to sit still and warm up. She has no pains or concerns History provided by: Patient resin coater used: No No data recorded Patient History Medical History[1] Surgical History[2] Family History[3] Social History Tobacco Use Smoking status: Former [...] is normal. Breath sounds: Normal breath sounds. Abdominal: Palpations: Abdomen is soft. Tenderness: There is no abdominal tenderness. There is no right CVA tenderness, left CVA tenderness, guarding or rebound. Musculoskeletal: General: Normal range of motion. Cervical back: Normal range of motion and neck supple. Skin: General: Skin is warm and dry. Capillary Refill: Capillary refill takes less than 2 seconds. Neurological: General: No focal deficit present. Mental Status: She is alert. Cranial Nerves: No cranial nerve deficit. Motor: No weakness. Gait: Gait normal. ED Course & MDM Clinical Impressions as of 02/09/25 0336 Cold exposure, initial encounter Medical Decision Making Differential diagnosis includes cold exposure, frostbite, hypothermia Patient without signs of cord injury. She is just physically cold due to the weather outside. She is ambulatory without difficulty. She is alert and oriented. No emergent workup clinically indicated.Patient has resources available to her in the community. Reminded of these. Procedures [1] Past Medical History: Diagnosis Date No known health problems [2] No past surgical history on file. [3] No family history on file. LISA Morales 02/09/25 0336 Cosigned by Garry Sterling MD at 02/09/2025 3:47 AM EST documented in this encounter Plan of Treatment Not on file documented as of this encounter Visit Diagnoses Diagnosis Cold exposure, initial encounter- Primary documented in this encounter Care Teams Playground Supervisor Relationship Specialty Start Date End Date Kaveh Silveira MD [address] [place] [address] [place] PCP - General 03/29/07 documented as of this encounter
--- OUTSIDE RECORDS SUMMARY | 2025-02-10 22:59 | XMS_ITS | Encounter Summary ---
Author Organization [facility] Address [address] [place] [address] Care Team Providers Care Video Production Engineer Name Role Phone Kaveh Silveira MD Primary Care Provider [phone] Reason for Visit * Reason Comments Leg Pain Pain from walking Encounter Details Date Type Department Care Team (Late st Contact Info) Description 02/10/2025 10:59 PM EST - 02/10/2025 11:02 PM EST Emergency [facility] Emergency [address] [place] [address] Pain in both lower extremities (Primary Dx); Homeless; Cold exposure, initial encounter Discharge Disposition: Home or Self Care Social [...] Sign Reading Time Taken Comments Blood Pressure 160/90 02/10/2025 9:21 PM EST Pulse 90 02/10/2025 9:21 PM EST Temperature 36.6 C (97.9 F) 02/10/2025 9:21 PM EST Respiratory Rate 22 02/10/2025 9:21 PM EST Oxygen Saturation 97% 02/10/2025 9:21 PM EST Inhaled Oxygen Concentration - - Weight - - Height - - Body Mass Index - - documented in this encounter Functional Status * Calculated C-SSRS Risk Score (Lifetime/Recent) Answer Date of Assessment Author No Risk Indicated 02/10/2025 9:16 PM EST Flor Tang RN * [place] Suicide Severity Rating Scale (Screener/Recent Self-Report) Question Answer Date of Assessment Author 1. Wish to be (Past 1 Month) No 025 9:16 PM EST Flor Tang, MARIELA 2. Non-Specific Active Suici felix Thoughts (Past 1 Month) No 02/10/2025 9:16 PM EST Flor Tang, MARIELA 6. Suicidal Behavior (Lifetime) No 5 9:16 PM EST Flor Tang, RN documented as of this encounter Discharge Instructions * Attachments The following attachments cannot be sent through Care Everywhere. * Leg Pain (Indonesian) documented in this encounter Discharge Disposition Disposition Code Departure Means Destination Comment s Home or Self Care documented in this encounter Progress Notes * Yanet Gates RN - 02/10/2025 9:17 PM EST Pt biba for multiple complaints including bilateral leg pain and weakness, claiming that she cannotwalk while ambulating with a steady gait throughout waiting room and requesting to go to rehab for said difficulty walking. Pt sts she is homeless and too cold in the rain. * Flor Tang RN - 02/10/2025 9:14 PM EST Gaby called ems due to trouble walking/pain walking wants to go to rehab/physical therapy facility.Claims is in her second trimester and works for the [employer]. * LISA Morales - 02/10/2025 9:08 PM EST HPI Chief Complaint Patient presents with Leg Pain Pain from walking Patient 55-year-old female past medical history of homelessness, psychiatric disorder presents to the emergency department by ambulance, reported to EMS trouble walking pain due to bilateral leg painwhich is chronic. Patient claims she is in her second trimester and works for the [employer]. Theseare typical statements from this patient. She does not state this to me during my assessment. She is observed to be ambulatory without difficulty. She tells me that she is unable to wear pants because they will get wet in the rain outside and that is cold. 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 Physical Exam ED Triage Vitals [02/10/252120] Temp Heart Rate Resp BP 36.6 ??C (97.9 ??F) 90 22 (!) 160/90 SpO2 Temp Source Heart Rate Source Patient Position 97 % Oral -- Sitting BP Location FiO2 (%) Left arm -- Physical Exam Vitals and nursing note [...] Course & MDM Clinical Impressions as of 02/10/25 2352 Pain in both lower extremities Homeless Cold exposure, initial encounter Medical Decision Making Differential diagnosis includes leg pain, low suspicion neurovascular injury skin soft tissue infection fracture dislocation. Patient hypertensive hemodynamically stable. Patient is at her baseline, she is cooperative there is no evidence of volume overload on exam, there is no unilateral pedal edema. Patient is without systemic symptoms. Patient is ambulatory observed by me in the emergency department waiting room. She is stable, emergent workup not clinically indicated. Procedures [1] Past Medical History: Diagnosis Date No known health problems [2] No past surgical history on file. [3] No family history on file. LISA Morales 02/10/25 5862 Cosigned by Nisha Sutherland MD at 02/11/2025 12:27 AM EST documented in this encounter Plan of Treatment Not on file documented as of this encounter Visit Diagnoses Diagnosis Pain in both lower extremities- Primary Homeless Lack of housing Cold exposure, initial encounter documented in this encounter Care Teams Video Production Engineer Relationship Specialty Start Date End Date Kaveh Silveira MD [address] [facility] [place] PCP - General 03/29/07 documented as of this encounter
[2025-02-13 22:29] VITALS: BP 155/75; PULSE 99; RESP 20; TEMP 36.4; O2SAT 98; BMI 51.3
--- NOTE | 2025-02-14 01:31 | ED.GENADULT ---
HPI - General Adult General Chief complaint: Back Pain/Injury Stated complaint: back pain, preg w/ twins unk how many weeks Time Seen by Provider: 02/14/25 01:30 Source: patient Limitations: no limitations History of Present Illness ED Provider: Cindy Goyal PA-C HPI narrative: 55-year-old female with a history of schizoaffective disorder bipolar type, housing and security, morbid obesity, diabetes, presents from a homeless retirement. Patient states she was in 1 of the beds at the retirement, she asked for assistance getting up, whomever was working they are called EMS for assistance. The patient denies need for medical assessment, she did not want to be transported to the emergency room. Related Data Previous Rx's ?Medication ?Instructions ?Recorded furosemide 20 mg tablet (Lasix) 20 mg PO BID #14 tabs 02/12/25 Allergies Allergy/AdvReac Type Severity Reaction Status Date / Time oxybutynin Allergy Unknown Hallucinati Verified 02/13/25 22:32 ons tramadol Allergy Unknown Swelling/Hi Verified 02/13/25 22:32 ves tramadol Allergy Unknown edema, Uncoded 02/08/25 00:03 hives, sob Review of Systems Review of Systems: Yes all other systems are reviewed and are negative Constitutional: Constitutional: Denies fatigue and Denies fever(s) Cardiovascular: Cardiovascular: Denies chest pain and Denies dyspnea Respiratory: Respiratory: Denies dyspnea Gastrointestinal: Gastrointestinal: Denies abdominal pain Endocrine: Endocrine: Denies fatigue [facility] Past Medical History Attestation statement: The following information was validated with the patient. Medical History (Updated 02/14/25 @ 02:31 by LISA Pozo) Lower extremity weakness Delusions Paranoid Social History Social History Household Members: None Household Members Other:: 3 Housing: Homeless Do you presently have visiting nurse or other home services: No Alcohol intake: never Patient Tobacco Use Status: Former Tobacco user Second Hand Smoke Exposure: No Substance Use Type: Unknown Advance Directives: No Advance Directives Information Provided: Yes Do you have a plan to hurt others: No Plan service: No Sexual orientation: Straight/Heterosexual Physical Exam ED Vital Signs: Vital Signs - 24 hr 02/13/25 22:29 02/14/25 01:41 Temperature 97.6 F 98.1 F Pulse Rate 99 88 Respiratory Rate 20 16 Blood Pressure 155/75 H 129/60 Pulse Oximetry 98 97 Oxygen Delivery Method Nasal Cannula Room Air BMI result Body Mass Index 51.3 Const Other: Alert Orientation/consciousness: patient oriented x3 Resp Effort & Inspection: normal respiratory effort Cardio Other: Normal peripheral perfusion Skin Other: Warm dry no rash Neuro General: patient oriented x3, gait normal, no focal motor deficits and CN's II-XI intact bilaterally Psych Other: Cooperative Medical Decision Making Medical Decision Making MDM Narrative: 55-year-old female with a history of schizoaffective disorder bipolar type, housing and security, morbid obesity, diabetes, presents from a homeless retirement. Patient states she was in 1 of the beds at the retirement, she asked for assistance getting up, whomever was working they are called EMS for assistance. The patient denies need for medical assessment, she did not want to be transported to the emergency room. Problem: Psychiatric illness, housing and security History: Per patient I have considered the following differential diagnoses: Need for medical clearance, inability to ambulate, gait instability, fall Plan: The patient is declining a medical assessment, she states she does not require 1, she did not want to be transported to the emergency room. She is happy to the wait in the waiting room until the morning. Differential Diagnosis Differential Diagnoses: The differential diagnosis associated with the presentation includes See MDM Admission/Observation Consideration of admission/observation: Escalation of care including admission/observation considered Not applicable Discharge Plan Discharge Clinical Impression: Housing insecurity Patient Disposition: Home, Self-Care Prescriptions: No Action furosemide [Lasix] 20 mg tablet 20 mg PO BID Qty: 14 0RF Print Language: Cape Verdean
[2025-02-14 01:41] VITALS: BP 129/60; PULSE 88; RESP 16; TEMP 36.7; O2SAT 97
--- OUTSIDE RECORDS SUMMARY | 2025-02-14 01:43 | XMS_ITS | Clinical Summary ---
Author Organization [facility] Prior to 08/11/[address] [place] [id number] Care Team Providers Care Space Operations Officer Name Role Phone Sb Peters Primary Care Provider [phone] Allergies Active Allergy Reactions Criticality Noted Date [...] Advance Directives For more information, please contact: [phone] Latest Code Status on File Code Status Date Activated Date Inactivated Comments Full Code 03/05/2021 10:37 PM 03/11/2021 6:29 PM Th is code status was ascertained in the following way: per unit protocol. Care Teams Space Operations Officer Relationship Specialty Start Date End Date Sb Peters [address] [facility] [place] [id number] PCP - General Family Medicine 01/10/18
--- OUTSIDE RECORDS SUMMARY | 2025-02-14 01:43 | XMS_ITS | Clinical Summary ---
Author Organization [facility] Address [facility] [place] [address] Care Team Providers Care Serology Teacher Name Role Phone None Primary Care Provider Unavailabl e Allergies Active Allergy Reactions Criticality Noted Date Comments Oxybutynin Other (See Comments) 03/11/2020 Unknown reaction or severity, info taken from patient's file from [facility] Reported in paper: hallucination Shellfish Containing Products Other (See Comments) 03/11/2020 Unknown reaction or severity, info taken from [facility] reported admission/hx and physical report Tramadol Hcl Other (See Comments) 03/11/2020 Unknown severity or reaction type, info taken from [facility] Medications No known medications [...] on file Type:Not on file Address: [address] [id number] MANAGED MEDICARE [place] GENER[place] Care Teams Serology Teacher Relationship Specialty Start Date End Date None None PCP - General 02/28/20
--- OUTSIDE RECORDS SUMMARY | 2025-02-14 01:44 | XMS_ITS | Clinical Summary ---
Author Organization [facility] Address [address] [place] [phone] Phone Care Team Providers Care Flat Sheet Maker Name Role Phone Kaveh Silveira MD Primary Care Provider [phone] Allergies Active Allergy Reactions Criticality Noted Date Comments Erythromycin Unknown 11/04/2024 Oxybutynin Unknown 11/04/2024 Medications No known medications Encounters Date Type Department Care Team Description 02/10/2025 10:59 PM EST - 02/10/2025 11:02 PM EST [facility] Emergency [address] [place] [phone] Pain in both lower extremities (Primary Dx); Homeless; Cold exposure, initial encounter Discharge Disposition: Home or Self Care 02/09/2025 3:34 AM EST - 02/09/2025 3:51 AM EST [facility] Emergency [address] [place] [phone] Cold exposure, initial encounter (Primary Dx) Discharge Disposition: Home or Self Care 01/27/2025 1:06 AM EST - 01/27/2025 2:28 AM EST [facility] Emergency [address] [place] [phone] Malingering (Primary Dx) Discharge Disposition: Home or Self Care 12/13/2024 10:31 PM EDT - 12/14/2024 1:03 AM EDT [facility] Emergency [address] [place] [phone] Malingering (Primary Dx); Candidal intertrigo Discharge Disposition: Home or Self Care 11/25/2024 1:27 AM EDT - 11/25/2024 1:59 AM EDT [facility] Emergency [address] [place] [phone] Malingering (Primary Dx) Discharge Disposition: Home or Self Care from [...] 1971 Colorectal Cancer Screening: Colonoscopy 1971 Hepatitis A Vaccines (1 of 2 - Risk 2-dose series) 1990 Hepatitis B Vaccines (1 of 3 - [...] Screening 02/14/2022 Depression Screening 03/14/2024 COVID-19 Vaccine ( - 2024-2 6 season) 2024 Influenza Vaccine [...] complete this topic Insurance MEDICARE Care Teams Flat Sheet Maker Relationship Specialty Start Date End Date Kaveh Silveira MD [address] [place], [place] PCP - General 03/29/07
--- OUTSIDE RECORDS SUMMARY | 2025-02-14 01:44 | XMS_ITS | Clinical Summary ---
Author Organization [facility] Address [address] [place] [phone] Phone Care Team Providers Care Loan Clerk Name Role Phone Pcp, Not Required Primary [...] to discharge then 5) Dispo: Likely to halfway, pt declining alternatives 6) Psychiatric: a. Encourage [...] topic Medical Devices Not on file Insurance [facility] MEDICARE PART A & B GENERIC COMMERCIAL [place] MEDICARE PART A & B GENERIC COMMERCIAL [facility]IC[facility] PART A & B GENERIC COMMERCIAL [facility] MEDICARE PART A & B GENERIC COMMERCIAL [place] MEDICARE PART A & B [employer] [facility] MEDICARE PART A & B GENERIC COMMERCIAL Advance Directives For more information, please contact: [phone] (9AM - 5PM [facility], Tuesday-Tuesday) * Full Code (Latest Code Status on File) Date Activated Date Inactivated Comments 05/19/2022 2:29 PM Question Answer Comments Code Status Confirmed With: Other (specify below ) Code Discussion Comments: presumed Care Teams Loan Clerk Relationship Specialty Start Date End Date Pcp, Not Required [address] [place] [id number] PCP - General 05/14/22 Additional Source Comments The information contained in this document represents components of the legal health record. It is not the complete legal health record.[facility]
[2025-02-14 02:50] VITALS: BP 129/60; PULSE 88; RESP 16; TEMP 36.7; O2SAT 97
== END 2025-02-14 02:50 | disposition home or self-care (01) ==
PROVIDERS: Emergency Provider Emergency Medicine
DX: O30.009 Twin pregnancy, unspecified number of placenta and unspecified number of amniotic sacs, unspecified trimester (principal); M54.9 Dorsalgia, unspecified; O24.919 Unspecified diabetes mellitus in pregnancy, unspecified trimester; O99.340 Other mental disorders complicating pregnancy, unspecified trimester; F25.0 Schizoaffective disorder, bipolar type; Z59.01 Sheltered homelessness
CPT/HCPCS: 99282; 99284